=== PATIENT | female | born 2000 | race Caucasian/White ===

== ENCOUNTER 2019-08-01 06:00 | Outpatient (RCR) | payer MEDICARE, OTHER, SELFPAY | END 2019-08-31 00:01 | LOC: SPT 06:00 | PROVIDERS: Family Provider Family Medicine; Visit Provider Psychiatry & Neurology Neurology with Special Qualifications in Child Neurology | DX: G80.9 Cerebral palsy, unspecified (principal); M54.5 Low back pain | CPT/HCPCS: 97530 ==

== ENCOUNTER 2019-09-01 06:00 | Outpatient (RCR) | payer MEDICARE, MEDICAID, OTHER, SELFPAY | END 2019-09-21 23:00 | disposition home or self-care (01) | LOC: SPT 06:00 | PROVIDERS: Family Provider Family Medicine; PCP Family Medicine; Referring Provider Psychiatry & Neurology Neurology with Special Qualifications in Child Neurology; Visit Provider Psychiatry & Neurology Neurology with Special Qualifications in Child Neurology | DX: G80.9 Cerebral palsy, unspecified (principal); M54.5 Low back pain | CPT/HCPCS: 97113; 97530 ==

== ENCOUNTER 2019-10-02 06:00 | Outpatient (RCR) | payer MEDICARE, MEDICAID, OTHER, SELFPAY | END 2019-10-30 23:59 | disposition home or self-care (01) | LOC: SPT 06:00 | PROVIDERS: Family Provider Family Medicine; PCP Family Medicine; Referring Provider Psychiatry & Neurology Neurology with Special Qualifications in Child Neurology; Visit Provider Psychiatry & Neurology Neurology with Special Qualifications in Child Neurology | DX: G80.0 Spastic quadriplegic cerebral palsy (principal); M54.5 Low back pain | CPT/HCPCS: 97113; 97530 ==

== ENCOUNTER 2020-04-02 19:43 | Emergency (ER) | payer MEDICARE, MEDICAID, OTHER, SELFPAY ==
[2020-04-02] VITALS (7 sets, daily range): BP systolic 124–162; BP diastolic 90–102; PULSE 111–123; RESP 17–20; TEMP 37.1; O2SAT 96–99; BMI 26.5
--- NOTE | 2020-04-02 20:27 | XR_ITS ---
WS: [id number] PORTABLE CHEST HISTORY: cough, chest pain COMPARISON: None available. Lung volumes are decreased due to marked distention of the visualized GI tract in the upper abdomen. No pneumonia. No pleural effusion or pneumothorax. Cardiac size: Normal. Mediastinum/Aorta: Normal mediastinum. Extensive bilateral Ta rods throughout the thoracic spine extending into the upper lumbar spi ne. XR/XR chest 1V portable [id number] IMPRESSION: Decreased lung volumes due to marked fecal and air distention in the colon. No pneumonia.
--- NOTE | 2020-04-02 20:28 | ECG_ITS ---
[facility] Test Date: 2020-04-02 Pat Name: Maria Esther Rust Department: Room: Gender: Female Independent Distributor: : 2000 Requested By: Ylois Paul Order Number: [id number] Milly MD: Bert Gaines M.D. Measurements Intervals [place] Rate: 114 P: 55 CT: 108 QRS: 32 QRSD: 89 T: 8 QT: 313 QTc: 432 Interpretive Statements SINUS TACHYCARDIA WITH SHORT CT INTERVAL POSSIBLE LEFT ATRIAL ENLARGEMENT [-0.1mV P WAVE IN V1/V2] ABNORMAL RHYTHM ECG No previous ECG available for comparison Electronically Signed On 04-03-2020 9:35:53 CDT by Bert Gaines M.D. [id number]
--- NOTE | 2020-04-02 20:46 | ED_ITS ---
Documented by User: Yolis Sung MD 04/05/20 15:01 HPI - SOB/Dyspnea General: Chief Complaint: Shortness of Breath/Dyspnea Stated Complaint: sob Time Seen by Provider: 04/02/20 19:56 History of Present Illness: HPI Narrative: This patient is a 20-year-old female with a history of cerebral palsy. She is here with a caregiver. Her complaint today is chest pain and shortness of breath. For about 3 or 4 days she has been having intermittent chest pains. She feels short of breath. She feels worse when she lays down at night to try to sleep. She says at times she wakes up gasping for breath. Sometimes she feels better when she sits up but also notes that after she has been sitting up for a while it is hard to breathe there too. She does have a history of panic attacks and says that she does not feel like this is her normal panic attack. She is concerned that she might have pneumonia. She went to the [facility] urgent care on and had a COVID test. She also was started on an antibiotic that starts with an L, possibly Levaquin for possible lung infection. She did not have a chest x-ray or labs done at that time. She has not had any fever. She has a dry cough. She has had a few loose stools but not quite diarrhea. The chest pain seems to come and go without any pattern. MD elicited complaint: shortness of breath, cough, pain with inspiration, chest pain and anxiety Pertinent past history: asthma (As a child) and pneumonia Timing: intermittent Severity: moderate Exacerbating factors: lying flat and inspiration Relieving factors: upright position Associated symptoms: Reports chest pain; Deny abdominal pain, chest congestion, extremity pain, fever(s), nausea or vomiting Review of Systems General: Reports: 10 or more systems reviewed and unremarkable except in HPI and below Const: Denies: fever(s), chills, fatigue or malaise Eyes: Denies: change in vision ENMT: Denies: odynophagia Card: Reports: chest pain; Denies: swelling of feet/ankles Resp: Reports: dyspnea, non-productive cough and pain on inspiration; Denies: chest congestion GI: Denies: abdominal pain, nausea or vomiting : Denies: flank pain or difficulty voiding Musc: Denies: extremity pain Skin/Breast: Denies: rash Neuro: Denies: headache(s), numbness in extremities or weakness in extremities Alan/Lymph: Denies: easy bruising or easy bleeding [facility] Female Reproductive History: Date of last menstrual period: 07/02/19 Physical Exam Const: COMMON NORMALS: no acute distress, patient oriented x3, no limitations and alert GENERAL APPEARANCE: cooperative and comfortable HENMT: HEAD & SCALP: normal to inspection FACE & SINUS: normal facial exam Eye: GENERAL EYE: appearance normal, both eyes and all related structures Neck/C-Spine: COMMON NORMALS: supple, no meningeal signs and no JVD Chest: COMMONS NORMALS: normal inspection of the chest Resp: COMMON NORMALS: normal respiratory effort, No use of accessory muscles and clear to auscultation bilaterally AUSCULTATION: clear to auscultation bilaterally Cardio: COMMON NORMALS: no JVD, regular rhythm and No murmurs present (Cardio) RATE: tachycardic RHYTHM: regular rhythm GI: COMMON NORMALS: non-tender INSPECTION: Yes normal to inspection and Yes abdominal distension AUSCULTATION: Yes normoactive bowel sounds and Yes Hypoactive bowel sounds present PERCUSSION: tympanic to percussion Back/Pelvis: COMMON NORMALS: thoracic and lumbar spine normal to inspection Extremity: NARRATIVE EXTREMITY EXAM: Muscle atrophy and contractures consistent with history of CP. She has good use of both upper extremities. Lower extremities are strapped into the wheelchair. GENERAL: Yes normal exam except as noted Neuro: COMMON NORMALS: patient oriented x3, moves all extremities, no focal motor deficits and no sensory deficits noted SENSORIUM/ORIENTATION: Yes alert MENINGEAL SIGNS: Yes no meningeal signs Psych: COMMON NORMALS: mental status grossly normal, cooperative and normal affect Skin: COMMON NORMALS: no rashes or lesions noted and turgor normal GENERAL SKIN EXAM: no rashes or lesions noted and turgor normal Course ED course: Patient requested some pain medicine and I gave her morphine and Zofran. She continued to complain of some nausea but pain was better. She is persistently tachycardic and she said her heart rate normally runs a little bit high. She is not sure what a normal heart rate is for her. Her chest x-ray was clear but did show markedly dilated bowel. Labs are unremarkable including a negative d-dimer. EKG just shows sinus tach with no ischemic changes. CT of the abdomen and pelvis is ordered to evaluate for blockage or ileus. This could be the cause of her chest pain. Vital Signs: Vital signs: Vital Signs Temperature 98.7 F 04/02/20 19:53 Pulse Rate 80 04/03/20 01:00 Respiratory Rate 16 04/03/20 01:00 Blood Pressure 129/81 04/03/20 01:00 Pulse Oximetry 97 04/03/20 01:00 MDM - SOB/Dyspnea MDM Narrative: Medical decision making narrative: Chest pain and shortness of breath. Patient had a COVID test done at urgent care on and is awaiting results. She has not had a fever or any known exposure. I think she is probably pretty low risk. She does have shortness of breath and chest pain. Somewhat pleuritic in nature. She also has had nausea and some abdominal bloating. She has had some loose stools which is unusual for her. Need to rule out pericarditis, myocarditis, PE, pneumonia. I would also include GI causes including gastritis, hiatal hernia. Lab Data: Labs: Lab Results 04/02/20 04/02/20 04/02/20 Range/Units 20:47 20:47 20:47 WBC 7.7 (4.0-10.0) 10^3/ uL RBC 4.69 (4.1-5.3) 10^6/u L Hgb 14.1 (11.5-15.3) g/dL Hct 43.2 (37.0-47.0) % MCV 92.1 (81-99) fL MCH 30.1 (28.0-34.0) pg MCHC 32.6 (30.0-36.0) g/dL RDW 12.3 (12.1-15.1) % Plt Count 204 (130-400) 10^3/c mm MPV 10.2 (7.4-10.4) fL Neut % (Auto) 57.2 % Lymph % (Auto) 35.0 % [place] % (Auto) 6.1 % Eos % (Auto) 1.2 % Baso % (Auto) 0.4 % Neut # (Auto) 4.38 (1.8-7.7) 10^3/u L Lymph # (Auto) 2.7 (0.8-4.8) 10^3/u L [place] # (Auto) 0.5 (0.2-0.9) 10^3/u L Eos # (Auto) 0.1 (0.0-0.8) 10^3/u L Baso # (Auto) 0.0 (0.0-0.1) 10^3/u L Nucleated RBC % (a uto) 0 % Nucleated RBCs # 0.0 /100WBC D-Dimer <= 0.27 (0-0.59) ug/mIFE U Sodium 138 (136-145) mmol/L Potassium 4.2 (3.5-5.1) mmol/L Chloride 104 (98-107) mmol/L Carbon Dioxide 23 (22-29) mmol/L Anion Gap 15.2 (5-19) BUN 7 (6-20) mg/dL Creatinine 0.4 L (0.5-0.9) mg/dL GFR Calculation 201.5 H (90-130) mL/min Glucose 92 (65-115) mg/dL Calculated Osmolal ity 281 L (285-295) mOsm/k g Lactic Acid (0.5-2.2) mmol/L Calcium 9.2 (8.5-10.5) mg/dL Total Bilirubin 0.2 (0.15-1.2) mg/dL AST 16 (0-32) U/L ALT 13 (0-33) U/L Alkaline Phosphata se 93 (35-105) IU/L Troponin T Baselin e (0-10) ng/L Troponin T 120 Min [place] (0-10) ng/L Delta Troponin T (0-10) ABS# NT-Pro-B Natriuret Pep 17 (0-125) pg/mL Total Protein 7.8 (6.6-8.7) g/dL Albumin 4.1 (3.5-5.2) g/dL Globulin 3.7 (1.3-4.6) g/dL Lipase 42 (13-60) U/L HCG, Qual (Negative) Urine Color (Yellow) Urine Appearance (CLEAR) Urine pH (5-7) Ur Specific Gravit y (1.005-1.030) Urine Protein (Negative) Urine Glucose (UA) (Normal) Urine Ketones (Negative) Urine Blood (Negative) Urine Nitrate (Negative) Urine Bilirubin (NEGATIVE) Urine Urobilinogen (Negative) mg/dL Ur Leukocyte Radha ase (Negative) SARS-CoV-2 Ag (Rap id) (Negative) 04/02/20 04/02/20 04/02/20 Range/Units 20:47 20:47 20:47 WBC (4.0-10.0) 10^3/ uL RBC (4.1-5.3) 10^6/u L Hgb (11.5-15.3) g/dL Hct (37.0-47.0) % MCV (81-99) fL MCH (28.0-34.0) pg MCHC (30.0-36.0) g/dL RDW (12.1-15.1) % Plt Count (130-400) 10^3/c mm MPV (7.4-10.4) fL Neut % (Auto) % Lymph % (Auto) % [place] % (Auto) % Eos % (Auto) % Baso % (Auto) % Neut # (Auto) (1.8-7.7) 10^3/u L Lymph # (Auto) (0.8-4.8) 10^3/u L [place] # (Auto) (0.2-0.9) 10^3/u L Eos # (Auto) (0.0-0.8) 10^3/u L Baso # (Auto) (0.0-0.1) 10^3/u L Nucleated RBC % (a uto) % Nucleated RBCs # /100WBC D-Dimer (0-0.59) ug/mIFE U Sodium (136-145) mmol/L Potassium (3.5-5.1) mmol/L Chloride (98-107) mmol/L Carbon Dioxide (22-29) mmol/L Anion Gap (5-19) BUN (6-20) mg/dL Creatinine (0.5-0.9) mg/dL GFR Calculation (90-130) mL/min Glucose (65-115) mg/dL Calculated Osmolal ity (285-295) mOsm/k g Lactic Acid < 0.2 L (0.5-2.2) mmol/L Calcium (8.5-10.5) mg/dL Total Bilirubin (0.15-1.2) mg/dL AST (0-32) U/L ALT (0-33) U/L Alkaline Phosphata se (35-105) IU/L Troponin T Baselin e 6 (0-10) ng/L Troponin T 120 Min [place] (0-10) ng/L Delta Troponin T (0-10) ABS# NT-Pro-B Natriuret Pep (0-125) pg/mL Total Protein (6.6-8.7) g/dL Albumin (3.5-5.2) g/dL Globulin (1.3-4.6) g/dL Lipase (13-60) U/L HCG, Qual Negative (Negative) Urine Color (Yellow) Urine Appearance (CLEAR) Urine pH (5-7) Ur Specific Gravit y (1.005-1.030) Urine Protein (Negative) Urine Glucose (UA) (Normal) Urine Ketones (Negative) Urine Blood (Negative) Urine Nitrate (Negative) Urine Bilirubin (NEGATIVE) Urine Urobilinogen (Negative) mg/dL Ur Leukocyte Radha ase (Negative) SARS-CoV-2 Ag (Rap id) (Negative) 04/02/20 04/02/20 04/03/20 Range/Units 20:52 22:19 00:12 WBC (4.0-10.0) 10^3/ uL RBC (4.1-5.3) 10^6/u L Hgb (11.5-15.3) g/dL Hct (37.0-47.0) % MCV (81-99) fL MCH (28.0-34.0) pg MCHC (30.0-36.0) g/dL RDW (12.1-15.1) % Plt Count (130-400) 10^3/c mm MPV (7.4-10.4) fL Neut % (Auto) % Lymph % (Auto) % [place] % (Auto) % Eos % (Auto) % Baso % (Auto) % Neut # (Auto) (1.8-7.7) 10^3/u L Lymph # (Auto) (0.8-4.8) 10^3/u L [place] # (Auto) (0.2-0.9) 10^3/u L Eos # (Auto) (0.0-0.8) 10^3/u L Baso # (Auto) (0.0-0.1) 10^3/u L Nucleated RBC % (a uto) % Nucleated RBCs # /100WBC D-Dimer (0-0.59) ug/mIFE U Sodium (136-145) mmol/L Potassium (3.5-5.1) mmol/L Chloride (98-107) mmol/L Carbon Dioxide (22-29) mmol/L Anion Gap (5-19) BUN (6-20) mg/dL Creatinine (0.5-0.9) mg/dL GFR Calculation (90-130) mL/min Glucose (65-115) mg/dL Calculated Osmolal ity (285-295) mOsm/k g Lactic Acid (0.5-2.2) mmol/L Calcium (8.5-10.5) mg/dL Total Bilirubin (0.15-1.2) mg/dL AST (0-32) U/L ALT (0-33) U/L Alkaline Phosphata se (35-105) IU/L Troponin T Baselin e (0-10) ng/L Troponin T 120 Min [place] 6.50 (0-10) ng/L Delta Troponin T 0.50 (0-10) ABS# NT-Pro-B Natriuret Pep (0-125) pg/mL Total Protein (6.6-8.7) g/dL Albumin (3.5-5.2) g/dL Globulin (1.3-4.6) g/dL Lipase (13-60) U/L HCG, Qual (Negative) Urine Color Yellow (Yellow) Urine Appearance Clear (CLEAR) Urine pH 7 (5-7) Ur Specific Gravit y 1.005 (1.005-1.030) Urine Protein Neg (Negative) Urine Glucose (UA) Norm (Normal) Urine Ketones Negative (Negative) Urine Blood Neg (Negative) Urine Nitrate Negative (Negative) Urine Bilirubin Neg (NEGATIVE) Urine Urobilinogen Norm (Negative) mg/dL Ur Leukocyte Radha ase Negative (Negative) SARS-CoV-2 Ag (Rap id) Negative (Negative) Discharge Plan Discharge Patient Disposition: Home Clinical Impression: Acute dyspnea Abdominal pain Qualifiers: Abdominal location: upper abdomen, unspecified Qualified Code(s): R10.10 - Upper abdominal pain, unspecified Condition: Stable Discharge Orders: Discharge Order (Routine); Ordered 04/03/20 Ordered By: Saima Osuna Referrals: Leatha Mena MD [Primary Care Provider] - 1-3 days Discharge Diet: Advance as tolerated Discharge Activity: Increase activity as tolerated Patient Instructions: Abdominal Pain (ED), Dyspnea (ED) Activity Restrictions/Additional Instructions: Please return to the ER immediately for any of the signs or symptoms listed on your discharge instruction sheets, worsening/changing of your symptoms, you are not getting better as quickly as expected, or for ANY other cause or concerns. Return to the ER for return of your shortness of breath, return of your abdominal pain, new onset of fever, vomiting, or for any other cause for concern. Be certain to follow-up with Dr. Mena this week as soon as possible for recheck. Discharge Date/Time: 04/03/20 01:08 Sign Out Sign Out Data: Patient Sign Out occurred on 04/02/20 at 22:20. Patient's care was discussed, and care was transferred from to Saima Osuna. Coding Level of Care Code ED [employer] Technician for Chg Fwd Exam Comprehensive Documented by User: Saima Osuna 04/03/20 00:55 HPI - SOB/Dyspnea General: Chief Complaint: Shortness of Breath/Dyspnea Stated Complaint: sob Time Seen by Provider: 04/02/20 19:56 Course Vital Signs: Vital signs: Vital Signs Temperature 98.7 F 04/02/20 19:53 Pulse Rate 80 04/03/20 01:00 Respiratory Rate 16 04/03/20 01:00 Blood Pressure 129/81 04/03/20 01:00 Pulse Oximetry 97 04/03/20 01:00 MDM - SOB/Dyspnea MDM Narrative: Medical decision making narrative: 2299 -Case turned over to me at change of shift from Dr. Sung. CT scan of abdomen pelvis pending. Per my history the patient comes in with a shortness of breath and intermittent sharp chest pains for the past 2 days. Patient does also complain of some upper abdominal pain. She is had nausea but not vomiting. She denies any diarrhea or constipation. Patient states that overall she is feeling better since arrival but not back to 100%. Will await test results and reevaluate the patient at that time. 0052 -the patient is now insisting upon going as she is tired and wants to go home to rest. CT scan showed gastroenteritis versus gastroparesis. Clinically the patient is having bowel movements and has not reported any vomiting. It is possible she could have some gastroparesis so I did give her a dose of Reglan here to see if that would help. The patient seemed to be anxious about waiting on her co-test any longer so I did do a COVID test here but now she wants to leave before she even has that result. She states all of her symptoms have not completely resolved. I will go ahead and discharge her home but she understands that we will have to wait for the COVID test since that should be back in less than 1 hour. The patient was encouraged to return should her symptoms return or she develop any new signs or symptoms. By exam and history I believe the patient to be low risk but she does agree to return should her symptoms change or worsen. She agrees to follow-up with her doctor for recheck. Vital signs returned to normal. Lab Data: Attestation: I reviewed the patient's lab results. Labs: Lab Results 04/02/20 04/02/20 04/02/20 Range/Units 20:47 20:47 20:47 WBC 7.7 (4.0-10.0) 10^3/ uL RBC 4.69 (4.1-5.3) 10^6/u L Hgb 14.1 (11.5-15.3) g/dL Hct 43.2 (37.0-47.0) % MCV 92.1 (81-99) fL MCH 30.1 (28.0-34.0) pg MCHC 32.6 (30.0-36.0) g/dL RDW 12.3 (12.1-15.1) % Plt Count 204 (130-400) 10^3/c mm MPV 10.2 (7.4-10.4) fL Neut % (Auto) 57.2 % Lymph % (Auto) 35.0 % [place] % (Auto) 6.1 % Eos % (Auto) 1.2 % Baso % (Auto) 0.4 % Neut # (Auto) 4.38 (1.8-7.7) 10^3/u L Lymph # (Auto) 2.7 (0.8-4.8) 10^3/u L [place] # (Auto) 0.5 (0.2-0.9) 10^3/u L Eos # (Auto) 0.1 (0.0-0.8) 10^3/u L Baso # (Auto) 0.0 (0.0-0.1) 10^3/u L Nucleated RBC % (a uto) 0 % Nucleated RBCs # 0.0 /100WBC D-Dimer <= 0.27 (0-0.59) ug/mIFE U Sodium 138 (136-145) mmol/L Potassium 4.2 (3.5-5.1) mmol/L Chloride 104 (98-107) mmol/L Carbon Dioxide 23 (22-29) mmol/L Anion Gap 15.2 (5-19) BUN 7 (6-20) mg/dL Creatinine 0.4 L (0.5-0.9) mg/dL GFR Calculation 201.5 H (90-130) mL/min Glucose 92 (65-115) mg/dL Calculated Osmolal ity 281 L (285-295) mOsm/k g Lactic Acid (0.5-2.2) mmol/L Calcium 9.2 (8.5-10.5) mg/dL Total Bilirubin 0.2 (0.15-1.2) mg/dL AST 16 (0-32) U/L ALT 13 (0-33) U/L Alkaline Phosphata se 93 (35-105) IU/L Troponin T Baselin e (0-10) ng/L Troponin T 120 Min [place] (0-10) ng/L Delta Troponin T (0-10) ABS# NT-Pro-B Natriuret Pep 17 (0-125) pg/mL Total Protein 7.8 (6.6-8.7) g/dL Albumin 4.1 (3.5-5.2) g/dL Globulin 3.7 (1.3-4.6) g/dL Lipase 42 (13-60) U/L HCG, Qual (Negative) Urine Color (Yellow) Urine Appearance (CLEAR) Urine pH (5-7) Ur Specific Gravit y (1.005-1.030) Urine Protein (Negative) Urine Glucose (UA) (Normal) Urine Ketones (Negative) Urine Blood (Negative) Urine Nitrate (Negative) Urine Bilirubin (NEGATIVE) Urine Urobilinogen (Negative) mg/dL Ur Leukocyte Radha ase (Negative) SARS-CoV-2 Ag (Rap id) (Negative) 04/02/20 04/02/20 04/02/20 Range/Units 20:47 20:47 20:47 WBC (4.0-10.0) 10^3/ uL RBC (4.1-5.3) 10^6/u L Hgb (11.5-15.3) g/dL Hct (37.0-47.0) % MCV (81-99) fL MCH (28.0-34.0) pg MCHC (30.0-36.0) g/dL RDW (12.1-15.1) % Plt Count (130-400) 10^3/c mm MPV (7.4-10.4) fL Neut % (Auto) % Lymph % (Auto) % [place] % (Auto) % Eos % (Auto) % Baso % (Auto) % Neut # (Auto) (1.8-7.7) 10^3/u L Lymph # (Auto) (0.8-4.8) 10^3/u L [place] # (Auto) (0.2-0.9) 10^3/u L Eos # (Auto) (0.0-0.8) 10^3/u L Baso # (Auto) (0.0-0.1) 10^3/u L Nucleated RBC % (a uto) % Nucleated RBCs # /100WBC D-Dimer (0-0.59) ug/mIFE U Sodium (136-145) mmol/L Potassium (3.5-5.1) mmol/L Chloride (98-107) mmol/L Carbon Dioxide (22-29) mmol/L Anion Gap (5-19) BUN (6-20) mg/dL Creatinine (0.5-0.9) mg/dL GFR Calculation (90-130) mL/min Glucose (65-115) mg/dL Calculated Osmolal ity (285-295) mOsm/k g Lactic Acid < 0.2 L (0.5-2.2) mmol/L Calcium (8.5-10.5) mg/dL Total Bilirubin (0.15-1.2) mg/dL AST (0-32) U/L ALT (0-33) U/L Alkaline Phosphata se (35-105) IU/L Troponin T Baselin e 6 (0-10) ng/L Troponin T 120 Min [place] (0-10) ng/L Delta Troponin T (0-10) ABS# NT-Pro-B Natriuret Pep (0-125) pg/mL Total Protein (6.6-8.7) g/dL Albumin (3.5-5.2) g/dL Globulin (1.3-4.6) g/dL Lipase (13-60) U/L HCG, Qual Negative (Negative) Urine Color (Yellow) Urine Appearance (CLEAR) Urine pH (5-7) Ur Specific Gravit y (1.005-1.030) Urine Protein (Negative) Urine Glucose (UA) (Normal) Urine Ketones (Negative) Urine Blood (Negative) Urine Nitrate (Negative) Urine Bilirubin (NEGATIVE) Urine Urobilinogen (Negative) mg/dL Ur Leukocyte Radha ase (Negative) SARS-CoV-2 Ag (Rap id) (Negative) 04/02/20 04/02/20 04/03/20 Range/Units 20:52 22:19 00:12 WBC (4.0-10.0) 10^3/ uL RBC (4.1-5.3) 10^6/u L Hgb (11.5-15.3) g/dL Hct (37.0-47.0) % MCV (81-99) fL MCH (28.0-34.0) pg MCHC (30.0-36.0) g/dL RDW (12.1-15.1) % Plt Count (130-400) 10^3/c mm MPV (7.4-10.4) fL Neut % (Auto) % Lymph % (Auto) % [place] % (Auto) % Eos % (Auto) % Baso % (Auto) % Neut # (Auto) (1.8-7.7) 10^3/u L Lymph # (Auto) (0.8-4.8) 10^3/u L [place] # (Auto) (0.2-0.9) 10^3/u L Eos # (Auto) (0.0-0.8) 10^3/u L Baso # (Auto) (0.0-0.1) 10^3/u L Nucleated RBC % (a uto) % Nucleated RBCs # /100WBC D-Dimer (0-0.59) ug/mIFE U Sodium (136-145) mmol/L Potassium (3.5-5.1) mmol/L Chloride (98-107) mmol/L Carbon Dioxide (22-29) mmol/L Anion Gap (5-19) BUN (6-20) mg/dL Creatinine (0.5-0.9) mg/dL GFR Calculation (90-130) mL/min Glucose (65-115) mg/dL Calculated Osmolal ity (285-295) mOsm/k g Lactic Acid (0.5-2.2) mmol/L Calcium (8.5-10.5) mg/dL Total Bilirubin (0.15-1.2) mg/dL AST (0-32) U/L ALT (0-33) U/L Alkaline Phosphata se (35-105) IU/L Troponin T Baselin e (0-10) ng/L Troponin T 120 Min [place] 6.50 (0-10) ng/L Delta Troponin T 0.50 (0-10) ABS# NT-Pro-B Natriuret Pep (0-125) pg/mL Total Protein (6.6-8.7) g/dL Albumin (3.5-5.2) g/dL Globulin (1.3-4.6) g/dL Lipase (13-60) U/L HCG, Qual (Negative) Urine Color Yellow (Yellow) Urine Appearance Clear (CLEAR) Urine pH 7 (5-7) Ur Specific Gravit y 1.005 (1.005-1.030) Urine Protein Neg (Negative) Urine Glucose (UA) Norm (Normal) Urine Ketones Negative (Negative) Urine Blood Neg (Negative) Urine Nitrate Negative (Negative) Urine Bilirubin Neg (NEGATIVE) Urine Urobilinogen Norm (Negative) mg/dL Ur Leukocyte Radha ase Negative (Negative) SARS-CoV-2 Ag (Rap id) Negative (Negative) Imaging Data^: CT Abd/Pel: Radiologist's impression: [address] [place] [address] CT Scan Report Signed Patient: Maria Esther Rust Unit #: [id number] : 2000 Age/Sex: 20 / F ADM Date: 04/02/20 Loc: ER Room/Bed: Attending Dr: Ordering Provider/Ordering MD: Yolis Sung MD Date of Service: 04/02/20 Procedure(s): CT abdomen pelvis w con* [id number] Accession Number(s): [id number] Report Number: [id number] PROCEDURE INFORMATION: Exam: CT Abdomen And Pelvis With Contrast Exam date and time: 04/02/2020 10:21 PM Age: 20 years old Clinical indication: Abdominal pain; Prior surgery; Surgery date: 6+ months; Surgery type: Back; Patient HX: HX of cp C/O epigastric pain TECHNIQUE: Imaging protocol: Computed tomography of the abdomen and pelvis with intravenous contrast. Radiation optimization: All CT scans at this facility use at least one of these dose optimization techniques: automated exposure control; mA and/or kV adjustment per patient size (includes targeted exams where dose is matched to clinical indication); or iterative reconstruction. Contrast material: OMNI 300; Contrast volume: 95 ml; Contrast route: INTRAVENOUS (IV); COMPARISON: No relevant prior studies available. RADIATION DOSE METRICS: Total DLP (mGy-cm): 993.67 FINDINGS: The lung bases are clear. There is extensive instrumentation of the spine with pedicle screws and stabilization rods. This causes significant artifact. There is no liver mass. There is no intrahepatic biliary dilatation. No gallstones are seen within the gallbladder. The pancreas is unremarkable. The spleen is unremarkable. There is no adrenal mass. There is no hydronephrosis. There are no renal calculi. There is no perinephric stranding. There is no renal mass. The aorta is normal in caliber. The IVC is normal in caliber. There is no retroperitoneal adenopathy. There is no mesenteric adenopathy. The stomach is filled with fluid. There is no gastric wall thickening. The small bowel loops in the upper abdomen are nondistended with no bowel wall thickening. Feces is seen throughout the colon. There is no thickening of the wall of the ascending, transverse or descending colons. Within the pelvis: The appendix is not visualized to advantage. However, there is no CT evidence for acute appendicitis. The bladder is unremarkable. The uterus is unremarkable. There are no adnexal masses. There is no free fluid within the pelvis. There is no inguinal adenopathy. There is no pelvic adenopathy. Feces is seen within the rectosigmoid colon. CT/CT abdomen pelvis w con* [id number] IMPRESSION: 1. Extensive artifact from spinal instrumentation limits examination. 2. Gastric distention with fluid which is nonspecific. This could be due to recent meal. It could be secondary to a gastroenteritis or gastro paresis. No evidence for bowel obstruction. 3. Moderate fecal burden suggesting constipation. Radiation Dose CTDIVOL = (mGy): DLP = 993.67 (mGy-cm) Dictated By: Noam Bush MD Signed By: Noam Bush MD Signed Date/Time: 04/02/202305 DD/ 04 EKG Data^: EKG 2: Attestation: I personally reviewed and interpreted this EKG as follows: EKG Interpretation Date: 04/03/20 EKG interpretation time: 23:34 Interpretation: Normal sinus rhythm at 113 beats a minute, no acute ST-T wave changes. Discharge Plan Discharge Patient Disposition: Home Clinical Impression: Acute dyspnea Abdominal pain Qualifiers: Abdominal location: upper abdomen, unspecified Qualified Code(s): R10.10 - Upper abdominal pain, unspecified Condition: Stable Discharge Orders: Discharge Order (Routine); Ordered 04/03/20 Ordered By: Saima Osuna Referrals: Leatha Mena MD [Primary Care Provider] - 1-3 days Discharge Diet: Advance as tolerated Discharge Activity: Increase activity as tolerated Patient Instructions: Abdominal Pain (ED), Dyspnea (ED) Activity Restrictions/Additional Instructions: Please return to the ER immediately for any of the signs or symptoms listed on your discharge instruction sheets, worsening/changing of your symptoms, you are not getting better as quickly as expected, or for ANY other cause or concerns. Return to the ER for return of your shortness of breath, return of your abdo jim pain, new onset of fever, vomiting, or for any other cause for concern. Be certain to follow-up with Dr. Mena this week as soon as possible for recheck. Discharge Date/Time: 04/03/20 01:08 Sign Out Sign Out Data: Patient Sign Out occurred on 04/02/20 at 22:20. Patient's care was discussed, and care was transferred from to Saima Osuna. Coding Level of Care Code ED [employer] for [employer] Fwd Exam Comprehensive
[2020-04-02 20:53] LABS: Basophils % 0.4 %; Eosinophils # 0.1 10^3/uL (0.0-0.8); Eosinophils % 1.2 %; Hematocrit 43.2 % (37.0-47.0); Hemoglobin 14.1 g/dL (11.5-15.3); Lymphocytes # 2.7 10^3/uL (0.8-4.8); Mean Corpuscular HGB Conc 32.6 g/dL (30.0-36.0); Mean Corpuscular Hemoglobin 30.1 pg (28.0-34.0); Mean Corpuscular Volume 92.1 fL (81-99); Mean Platelet Volume 10.2 fL (7.4-10.4); Monocytes # 0.5 10^3/uL (0.2-0.9); Monocytes % 6.1 %; Neutrophils # 4.38 10^3/uL (1.8-7.7); Neutrophils % 57.2 %; Nucleated Red Blood Cells % 0 %; Platelet Count 204 10^3/cmm (130-400); Red Blood Count 4.69 10^6/uL (4.1-5.3); Red Cell Distribution Width 12.3 % (12.1-15.1); White Blood Count 7.7 10^3/uL (4.0-10.0)
[2020-04-02 21:09] LABS: D Dimer <= 0.27 ug/mIFEU (0-0.59)
[2020-04-02 21:17] LABS: HCG, Serum Qual Negative (Negative)
[2020-04-02 21:19] LABS: Add Urine Microscopic? NO
[2020-04-02] MEDS: sodium chloride 0.9% 1,000 ML 999 ML IV ×2 (21:19→23:45)
[2020-04-02] MEDS: ondansetron 2 mg/ML SDV 2 mL 4 MG IVP (21:23)
[2020-04-02] MEDS: morphine 4 mg/mL SDV 1 mL IVP ×3 (21:24→23:47)
[2020-04-02 21:26] LABS: Bilirubin Urine Neg (NEGATIVE); Blood Urine Neg (Negative); Glucose Urine UA Norm (Normal); Ketones Urine Negative (Negative); Leukocyte Esterase Urine Negative (Negative); Nitrate Urine Negative (Negative); Protein Urine Neg (Negative); Specific Gravity, Urine 1.005 (1.005-1.030); Urine Appearance Clear (CLEAR); Urine Color Yellow (Yellow); Urobilinogen Urine Norm (Negative); pH Urine 7 (5-7)
[2020-04-02 21:41] LABS: Alanine Aminotransferase 13 U/L (0-33); Albumin Level 4.1 g/dL (3.5-5.2); Alkaline Phosphatase 93 IU/L (35-105); Anion Gap 15.2 (5-19); Aspartate Amino Transferase 16 U/L (0-32); Blood Urea Nitrogen 7 mg/dL (6-20); Calcium 9.2 mg/dL (8.5-10.5); Carbon Dioxide 23 mmol/L (22-29); Chloride 104 mmol/L (98-107); Globulin 3.7 g/dL (1.3-4.6); Glomerular Filtration Rate 201.5 mL/min (90-130); Glucose 92 mg/dL (65-115); Lipase 42 U/L (13-60); NT Pro B Type Natriuretic Pept 17 pg/mL (0-125); Osmolality Calculated 281 mOsm/kg (285-295); Potassium 4.2 mmol/L (3.5-5.1); Sodium 138 mmol/L (136-145); Total Bilirubin 0.2 mg/dL (0.15-1.2); Total Protein 7.8 g/dL (6.6-8.7)
--- NOTE | 2020-04-02 21:48 | CTR_ITS ---
PROCEDURE INFORMATION: Exam: CT Abdomen And Pelvis With Contrast Exam date and time: 04/02/2020 10:21 PM Age: 20 years old Clinical indication: Abdominal pain; Prior surgery; Surgery date: 6+ months; Surgery type: Back; Patient HX: HX of cp C/O epigastric pain TECHNIQUE: Imaging protocol: Computed tomography of the abdomen and pelvis with intravenous contrast. Radiation optimization: All CT scans at this facility use at least one of these dose optimization techniques: automated exposure control; mA and/or kV adjustment per patient size (includes targeted exams where dose is matched to clinical indication); or iterative reconstruction. Contrast material: OMNI 300; Contrast volume: 95 ml; Contrast route: INTRAVENOUS (IV); COMPARISON: No relevant prior studies available. RADIATION DOSE METRICS: Total DLP (mGy-cm): 993.67 FINDINGS: The lung bases are clear. There is extensive instrumentation of the spine with pedicle screws and stabilization rods. This causes significant artifact. There is no liver mass. There is no intrahepatic biliary dilatation. No gallstones are seen within the gallbladder. The pancreas is unremarkable. The spleen is unremarkable. There is no adrenal mass. There is no hydronephrosis. There are no renal calculi. There is no perinephric stranding. There is no renal mass. The aorta is normal in caliber. The IVC is normal in caliber. There is no retroperitoneal adenopathy. There is no mesenteric adenopathy. The stomach is filled with fluid. There is no gastric wall thickening. The small bowel loops in the upper abdomen are nondistended with no bowel wall thickening. Feces is seen throughout the colon. There is no thickening of the wall of the ascending, transverse or descending colons. Within the pelvis: The appendix is not visualized to advantage. However, there is no CT evidence for acute appendicitis. The bladder is unremarkable. The uterus is unremarkable. There are no adnexal masses. There is no free fluid within the pelvis. There is no inguinal adenopathy. There is no pelvic adenopathy. Feces is seen within the rectosigmoid colon. CT/CT abdomen pelvis w con* [id number] IMPRESSION: 1. Extensive artifact from spinal instrumentation limits examination. 2. Gastric distention with fluid which is nonspecific. This could be due to recent meal. It could be secondary to a gastroenteritis or gastro paresis. No evidence for bowel obstruction. 3. Moderate fecal burden suggesting constipation. Radiation Dose CTDIVOL = (mGy): DLP = 993.67 (mGy-cm)
[2020-04-02 21:57] LABS: Troponin(5th) Baseline 6 ng/L (0-10)
--- NOTE | 2020-04-02 22:28 | ECG_ITS ---
[facility] Test Date: 2020-04-02 Pat Name: Maria Esther Rust Department: Room: Gender: Female Machine Bender: : 2000 Requested By: Yolis Paul Order Number: [id number] Milly MD: Bert Gaines M.D. Measurements Intervals Lawrence Rate: 113 P: -38 RI: 138 QRS: -27 QRSD: 80 T: 34 QT: 328 QTc: 451 Interpretive Statements SINUS TACHYCARDIA POSSIBLE LEFT ATRIAL ENLARGEMENT [-0.1mV P WAVE IN V1/V2] BORDERLINE LEFT AXIS DEVIATION [QRS AXIS < -20] POSSIBLE RIGHT VENTRICULAR CONDUCTION DELAY [RSR (QR) IN V1/V2] NONSPECIFIC T-WAVE ABNORMALITY ABNORMAL RHYTHM ECG Compared to ECG 04/02/2020 20:23:43 T-wave abnormality now present Short RI interval no longer present Electronically Signed On 04-03-2020 20:35:42 CDT by Bert Gaines M.D. [id number]
[2020-04-02] MEDS: iohexol 300 mg/mL 100 mL Btl IV (22:47)
[2020-04-02] MEDS: metoclopramide 5 mg/mL SDV 2 mL 10 MG IVP (23:44)
[2020-04-03] VITALS: BP 147/77; PULSE 107; RESP 18; O2SAT 98
[2020-04-03 00:01] LABS: Lactic Sepsis W/Reflex < 0.2 mmol/L (0.5-2.2)
--- NOTE | 2020-04-03 00:10 | PC.NURSE ---
THIS NURSE ASSUMED CARE OF PT AT THIS TIME.
[2020-04-03 00:58] LABS: SARS Covid-2 Antigen Negative (Negative)
[2020-04-03 01:00] VITALS: BP 129/81; PULSE 80; RESP 16; O2SAT 97
== END 2020-04-03 01:08 | disposition home or self-care (01) ==
PROVIDERS: Emergency Medicine; Emergency Provider Emergency Medicine; PCP Family Medicine
DX: R06.00 Dyspnea, unspecified (principal); R10.10 Upper abdominal pain, unspecified; R07.9 Chest pain, unspecified
CPT/HCPCS: 12345; 71045; 74177; 80053; 81003; 83605; 83690; 83880; 84484; 84703; 85025; 85378; 87426; 93005; 96361; 96374; 96375; 96376; 99283; 99284; J2270; J2405; J2765; J7030; Q9967

== ENCOUNTER 2020-04-12 12:43 | Outpatient (RCR) | payer MEDICARE, OTHER, MEDICAID, SELFPAY | END 2020-05-01 23:59 | disposition home or self-care (01) | LOC: SPO 12:43 | PROVIDERS: PCP Family Medicine; Referring Provider Orthopaedic Surgery Hand Surgery; Visit Provider Orthopaedic Surgery Hand Surgery | DX: R25.2 Cramp and spasm (principal) | CPT/HCPCS: 97110; 97162; 97167; 97530 ==

== ENCOUNTER 2020-05-02 06:00 | Outpatient (RCR) | payer MEDICARE, OTHER, MEDICAID, SELFPAY | END 2020-05-31 23:59 | disposition home or self-care (01) | LOC: SPO 06:00 | PROVIDERS: PCP Family Medicine; Referring Provider Orthopaedic Surgery Hand Surgery; Visit Provider Orthopaedic Surgery Hand Surgery | DX: R25.2 Cramp and spasm (principal) | CPT/HCPCS: 97110; 97113; 97140; 97530 ==

== ENCOUNTER 2020-06-01 06:00 | Outpatient (RCR) | payer MEDICARE, OTHER, MEDICAID, SELFPAY | END 2020-07-01 23:59 | disposition home or self-care (01) | LOC: SPO 06:00 | PROVIDERS: PCP Family Medicine; Referring Provider Orthopaedic Surgery Hand Surgery; Visit Provider Orthopaedic Surgery Hand Surgery | DX: R25.2 Cramp and spasm (principal) | CPT/HCPCS: 97110; 97113; 97140; 97530 ==

== ENCOUNTER 2020-08-01 06:00 | Outpatient (RCR) | payer MEDICARE, OTHER, MEDICAID, SELFPAY | END 2020-08-31 23:59 | disposition home or self-care (01) | LOC: SPO 06:00 | PROVIDERS: PCP Family Medicine; Referring Provider Orthopaedic Surgery Hand Surgery; Visit Provider Orthopaedic Surgery Hand Surgery | DX: G80.0 Spastic quadriplegic cerebral palsy (principal); R25.2 Cramp and spasm | CPT/HCPCS: 97110; 97113; 97530 ==

== ENCOUNTER 2020-09-01 06:00 | Outpatient (RCR) | payer MEDICARE, OTHER, MEDICAID, SELFPAY | END 2020-10-01 23:59 | disposition home or self-care (01) | LOC: SPO 06:00 | PROVIDERS: PCP Family Medicine; Referring Provider Orthopaedic Surgery Hand Surgery; Visit Provider Orthopaedic Surgery Hand Surgery | DX: G80.0 Spastic quadriplegic cerebral palsy (principal) | CPT/HCPCS: 97110; 97530 ==

== ENCOUNTER → 2021-01-16 08:43 | Outpatient (BNVA) | payer MEDICARE, OTHER, MEDICAID, SELFPAY | PROVIDERS: PCP Family Medicine; Visit Provider Psychiatry & Neurology Psychiatry | DX: F33.1 Major depressive disorder, recurrent, moderate (principal); F41.1 Generalized anxiety disorder | CPT/HCPCS: 99204 ==

== ENCOUNTER 2021-07-12 04:40 | Emergency (ER) | payer MEDICARE, MEDICAID, OTHER, SELFPAY ==
[2021-07-12 04:51] VITALS: BP 149/107; PULSE 128; RESP 18; TEMP 36.3; O2SAT 96; BMI 27.4
--- NOTE | 2021-07-12 04:54 | CTR_ITS ---
PROCEDURE INFORMATION: Exam: CT Abdomen And Pelvis With Contrast Exam date and time: 07/12/2021 4:54 AM Age: 21 years old Clinical indication: Nausea and vomiting; Prior surgery; Surgery date: 6+ months; Surgery type: Back TECHNIQUE: Imaging protocol: Computed tomography of the abdomen and pelvis with contrast. Total images: 249 Radiation optimization: All CT scans at this facility use at least one of these dose optimization techniques: automated exposure control; mA and/or kV adjustment per patient size (includes targeted exams where dose is matched to clinical indication); or iterative reconstruction. Contrast material: OMNI 350; Contrast volume: 95 ml; Contrast route: INTRAVENOUS (IV); COMPARISON: CT abdomen pelvis w con* [id number] 04/02/2020 10:32 PM RADIATION DOSE METRICS: Total DLP (mGy-cm): 1698.24 FINDINGS: Liver: Normal. No mass. Gallbladder and bile ducts: Normal. No calcified stones. No ductal dilation. Pancreas: Normal. No ductal dilation. Spleen: Normal. No splenomegaly. Adrenal glands: Normal. No mass. Kidneys and ureters: Normal. No hydronephrosis. Stomach and bowel: Moderate stool burden. Appendix: No evidence of appendicitis. Intraperitoneal space: Unremarkable. No free air. No significant fluid collection. Vasculature: Incidental phleboliths noted. Lymph nodes: Unremarkable. No enlarged lymph nodes. Urinary bladder: Unremarkable as visualized. Reproductive: Unremarkable as visualized. Bones/joints: Extensive streak artifact from the patient's spinal hardware obscuring images. Extensive spinal hardware unchanged in appearance from prior exam. Soft tissues: Unremarkable. CT/CT abdomen pelvis w con* [id number] IMPRESSION: 1. Extensive streak artifact from the patient's spinal hardware obscuring images. 2. Moderate stool burden. 3. No acute process identified. Radiation Dose CTDIVOL = (mGy): DLP = 1698.24 (mGy-cm)
--- NOTE | 2021-07-12 04:55 | ED_ITS ---
Documented by User: Radha Das MD 07/12/21 04:57 HPI - Nausea/Vomiting/Diarrhea General: Chief complaint: Nausea/Vomiting/Diarrhea Stated complaint: N\V Diahrea Time Seen by Provider: 07/12/21 04:50 Source: patient Mode of arrival: ambulatory Limitations: no limitations History of Present Illness: HPI Narrative: 21-year-old female has a history of cerebral palsy she states that over the last day she been having severe vomiting and some diarrhea. She states she has had more episodes of vomiting she can count start able to tolerate any liquids or solids. States she had 1 episode of diarrhea yesterday. She has got abdominal cramping she rates it a 4 out of 10 denies any fevers. Denies any worsening improving factors. Associated nausea: Yes Associated symtoms: Reports nausea; Denies chest pain, dysuria or headache(s) Review of Systems Const: Denies: fever(s), chills, body aches or change in appetite Eyes: Denies: blurry vision or eye discomfort ENMT: Denies: throat pain or dental pain Card: Denies: chest pain Resp: Denies: dyspnea GI: Reports: abdominal pain, nausea, vomiting and diarrhea : Denies: dysuria Musc: Denies: neck pain or back pain Skin/Breast: Denies: rash Neuro: Denies: headache(s) Psych: Denies: depression Alan/Lymph: Denies: easy bruising All/Imm: Denies: urticaria PFS ED PFSH: Social History Smoking and tobacco status: never smoked Second hand smoke exposure: Yes Female Reproductive History: Date of last menstrual period: 07/02/19 Physical Exam Const: COMMON NORMALS: no acute distress, patient oriented x3 and healthy appearing HENMT: COMMON NORMALS: normocephalic and atraumatic HEAD & SCALP: normocephalic and atraumatic Eye: COMMON NORMALS: Equal, round and reactive pupils present and EOMs intact bilaterally PUPIL: Yes Equal, round and reactive pupils present Neck/C-Spine: COMMON NORMALS: full ROM and supple Chest: COMMONS NORMALS: normal inspection of the chest and normal palpation of entire chest wall Resp: COMMON NORMALS: normal respiratory effort, No retractions, No use of accessory muscles and clear to auscultation bilaterally AUSCULTATION: clear to auscultation bilaterally Cardio: COMMON NORMALS: regular rate, regular rhythm and No murmurs present (Cardio) RATE: regular rate RHYTHM: regular rhythm GI: COMMON NORMALS: Normal to inspection, nondistended, normoactive bowel sounds present, Soft to palpation, non-tender and no masses PALPATION: Yes Soft to palpation Extremity: COMMON NORMALS: normal to inspection and full ROM Neuro: COMMON NORMALS: patient oriented x3, moves all extremities and no focal motor deficits Psych: COMMON NORMALS: mental status grossly normal, Normal thought process present and cooperative THOUGHT PROCESS: Normal thought process present Skin: COMMON NORMALS: no rashes or lesions noted and no wounds GENERAL SKIN EXAM: no rashes or lesions noted Course Vital Signs: Vital signs: Vital Signs Temperature 97.4 F L 07/12/21 04:51 Pulse Rate 84 07/12/21 06:25 Respiratory Rate 20 H 07/12/21 06:25 Blood Pressure 101/52 07/12/21 06:25 Pulse Oximetry 100 07/12/21 06:25 MDM - Nausea/Vomiting/Diarrhea Lab Data: Labs: Lab Results 07/12/21 07/12/21 07/12/21 05:45 05:45 05:45 WBC 10.0 10^3/uL 10^3 /uL (4.0-10.0) RBC 4.65 10^6/uL 10^6 /uL (4.1-5.3) Hgb 14.1 g/dL g/dL (11.5-15.3) Hct 42.3 % % (37.0-47.0) MCV 91.0 fl fl (81-99) MCH 30.3 pg pg (28.0-34.0) MCHC 33.3 g/dL g/dL (30.0-36.0) RDW 13.2 % % (12.1-15.1) Plt Count 229 10^3/cmm 10^3 /cmm (130-400) MPV 10.8 fL H fL (7.4-10.4) Neut % (Auto) 76.1 % % Lymph % (Auto) 16.4 % % [place] % (Auto) 6.5 % % Eos % (Auto) 0.6 % % Baso % (Auto) 0.2 % % Neut # (Auto) 7.63 10^3/uL 10^3 /uL (1.8-7.7) Lymph # (Auto) 1.6 10^3/uL 10^3/ uL (0.8-4.8) [place] # (Auto) 0.7 10^3/uL 10^3/ uL (0.2-0.9) Eos # (Auto) 0.1 10^3/uL 10^3/ uL (0.0-0.8) Baso # (Auto) 0.0 10^3/uL 10^3/ uL (0.0-0.1) Nucleated RBC % (a uto) 0 % % Nucleated RBCs # 0.0 /100WBC /100W BC Sodium 139 mmol/L mmol/L (136-145) Potassium 3.8 mmol/L mmol/L (3.5-5.1) Chloride 103 mmol/L mmol/L (98-107) Carbon Dioxide 20 mmol/L L mmol/ L (22-29) Anion Gap 19.8 H (5-19) BUN 11 mg/dL mg/dL (6-20) Creatinine 0.5 mg/dL mg/dL (0.5-0.9) GFR Calculation 154.3 mL/min H mL /min (90-130) Glucose 82 mg/dL mg/dL (65-115) Calculated Osmolal ity 286 mOsm/kg mOsm/ kg (285-295) Calcium 8.8 mg/dL mg/dL (8.5-10.5) Total Bilirubin 0.4 mg/dL mg/dL (0.15-1.2) AST 14 U/L U/L (0-32) ALT 12 U/L U/L (0-33) Alkaline Phosphata se 100 IU/L IU/L (35-105) Total Protein 7.2 g/dL g/dL (6.6-8.7) Albumin 3.9 g/dL g/dL (3.5-5.2) Globulin 3.3 g/dL g/dL (1.3-4.6) Lipase 31 U/L U/L (13-60) HCG, Qual Negative (Negative) Urine Color Urine Appearance Urine pH Ur Specific Gravit y Urine Protein Urine Glucose (UA) Urine Ketones Urine Blood Urine Nitrate Urine Bilirubin Urine Urobilinogen Ur Leukocyte Radha ase Urine RBC Urine WBC Ur Squamous Epith Cells Amorphous Sediment Urine Bacteria 07/12/21 06:30 WBC RBC Hgb Hct MCV MCH MCHC RDW Plt Count MPV Neut % (Auto) Lymph % (Auto) [place] % (Auto) Eos % (Auto) Baso % (Auto) Neut # (Auto) Lymph # (Auto) [place] # (Auto) Eos # (Auto) Baso # (Auto) Nucleated RBC % (a uto) Nucleated RBCs # Sodium Potassium Chloride Carbon Dioxide Anion Gap BUN Creatinine GFR Calculation Glucose Calculated Osmolal ity Calcium Total Bilirubin AST ALT Alkaline Phosphata se Total Protein Albumin Globulin Lipase HCG, Qual Urine Color Yellow (Yellow) Urine Appearance Sl hazy (CLEAR) Urine pH 5 (5-7) Ur Specific Gravit y 1.025 (1.005-1.030) Urine Protein Trace (Negative) Urine Glucose (UA) Norm (Normal) Urine Ketones 3+ H (Negative) Urine Blood 3+ H (Negative) Urine Nitrate Negative (Negative) Urine Bilirubin 1+ H (Negative) Urine Urobilinogen 1 mg/dL H mg/dL (Negative) Ur Leukocyte Radha ase 1+ H (Negative) Urine RBC 15-25 /hpf H /hpf (0-2) Urine WBC 15-25 /hpf H /hpf (0-5) Ur Squamous Epith Cells 25-40 /hpf H /hpf (0-5) Amorphous Sediment Not Reportable Urine Bacteria 2+ /hpf H /hpf (NONE) Discharge Plan Discharge Patient Disposition: Home Clinical Impression: Pyelonephritis Condition: Stable Prescriptions: New ciprofloxacin HCl 500 mg tablet 500 mg PO Q8H 7 Days Qty: 21 RF: 0 Zofran 4 mg tablet 4 mg PO Q8H PRN (Reason: nausea and vomiting) 3 Days Qty: 5 RF: 0 No Action baclofen 10 mg tablet 10 mg PO DAILY RF: 0 L norgest/e.estradiol-e.estrad [Camrese Lo] 0.10 mg-20 mcg (84)/10 mcg (7) tablets,dose pack,3 month 1 tab PO DAILY RF: 0 clonazepam 0.5 mg tablet 0.5 mg PO BID RF: 0 dapsone 5 % gel 1 applic topical BID RF: 0 famotidine [Acid Rice Dryer Mechanic (famotidine)] 20 mg tablet 20 mg PO DAILY RF: 0 gabapentin 400 mg capsule 400 mg PO BID RF: 0 mupirocin 2 % ointment 1 applic topical BID RF: 0 spironolactone 50 mg tablet 50 mg PO DAILY RF: 0 Tazorac 0.05 % cream 1 applic topical DAILY RF: 0 fluoxetine [Prozac] 20 mg capsule 20 mg PO DAILY Qty: 30 RF: 2 bupropion HCl 150 mg tablet sustained-release 12 hr 150 mg PO BID Qty: 60 RF: 2 Discharge Orders: Discharge ED (Routine); Ordered 07/12/21 Ordered By: Erickson Kwong Referrals: Leatha Mena MD [Primary Care Provider] - 1-3 days Patient Instructions: Kidney Infection (ED), Flank Pain (ED), Opioid Safety Sign Out Sign Out Data: Patient Sign Out occurred on 07/12/21 at 05:59. Patient's care was discussed, and care was transferred from to Erickson Kwong MD. Coding Level of Care Code ED Street Sprinkler for Chg Fwd Exam Comprehensive Documented by User: Erickson Kwong MD 07/12/21 08:00 HPI - Nausea/Vomiting/Diarrhea General: Chief complaint: Nausea/Vomiting/Diarrhea Stated complaint: N\V Diahrea Time Seen by Provider: 07/12/21 04:50 [facility] ED PFSH: Social History Smoking and tobacco status: never smoked Second hand smoke exposure: Yes Course Vital Signs: Vital signs: Vital Signs Temperature 97.4 F L 07/12/21 04:51 Pulse Rate 84 07/12/21 06:25 Respiratory Rate 20 H 07/12/21 06:25 Blood Pressure 101/52 07/12/21 06:25 Pulse Oximetry 100 07/12/21 06:25 MDM - Nausea/Vomiting/Diarrhea MDM Narrative: Medical decision making narrative: Patient signed out to me by Dr. Das. 21-year-old female presents due to flank pain nausea and vomiting. Improved with Zofran tolerate p.o. challenge. Urinalysis concerning for UTI. Given flank tenderness there is concern of pyelonephritis. Otherwise benign abdominal exam and Tellez sign is negative. She is hemodynamically stable afebrile nontoxic-appearing. Initially tachycardic but improved with IV fluids. CT scan does not reveal any acute abnormality. Prescription for Cipro and Zofran provided. At this time I believe patient would be safe for discharge and outpatient follow-up. Return precautions provided. Plan was reviewed with the patient who expressed understanding. Questions answered. Patient will follow up with PCP. Patient discharged in stable condition. Lab Data: Labs: Lab Results 07/12/21 07/12/21 07/12/21 05:45 05:45 05:45 WBC 10.0 10^3/uL 10^3 /uL (4.0-10.0) RBC 4.65 10^6/uL 10^6 /uL (4.1-5.3) Hgb 14.1 g/dL g/dL (11.5-15.3) Hct 42.3 % % (37.0-47.0) MCV 91.0 fl fl (81-99) MCH 30.3 pg pg (28.0-34.0) MCHC 33.3 g/dL g/dL (30.0-36.0) RDW 13.2 % % (12.1-15.1) Plt Count 229 10^3/cmm 10^3 /cmm (130-400) MPV 10.8 fL H fL (7.4-10.4) Neut % (Auto) 76.1 % % Lymph % (Auto) 16.4 % % [place] % (Auto) 6.5 % % Eos % (Auto) 0.6 % % Baso % (Auto) 0.2 % % Neut # (Auto) 7.63 10^3/uL 10^3 /uL (1.8-7.7) Lymph # (Auto) 1.6 10^3/uL 10^3/ uL (0.8-4.8) [place] # (Auto) 0.7 10^3/uL 10^3/ uL (0.2-0.9) Eos # (Auto) 0.1 10^3/uL 10^3/ uL (0.0-0.8) Baso # (Auto) 0.0 10^3/uL 10^3/ uL (0.0-0.1) Nucleated RBC % (a uto) 0 % % Nucleated RBCs # 0.0 /100WBC /100W BC Sodium 139 mmol/L mmol/L (136-145) Potassium 3.8 mmol/L mmol/L (3.5-5.1) Chloride 103 mmol/L mmol/L (98-107) Carbon Dioxide 20 mmol/L L mmol/ L (22-29) Anion Gap 19.8 H (5-19) BUN 11 mg/dL mg/dL (6-20) Creatinine 0.5 mg/dL mg/dL (0.5-0.9) GFR Calculation 154.3 mL/min H mL /min (90-130) Glucose 82 mg/dL mg/dL (65-115) Calculated Osmolal ity 286 mOsm/kg mOsm/ kg (285-295) Calcium 8.8 mg/dL mg/dL (8.5-10.5) Total Bilirubin 0.4 mg/dL mg/dL (0.15-1.2) AST 14 U/L U/L (0-32) ALT 12 U/L U/L (0-33) Alkaline Phosphata se 100 IU/L IU/L (35-105) Total Protein 7.2 g/dL g/dL (6.6-8.7) Albumin 3.9 g/dL g/dL (3.5-5.2) Globulin 3.3 g/dL g/dL (1.3-4.6) Lipase 31 U/L U/L (13-60) HCG, Qual Negative (Negative) Urine Color Urine Appearance Urine pH Ur Specific Gravit y Urine Protein Urine Glucose (UA) Urine Ketones Urine Blood Urine Nitrate Urine Bilirubin Urine Urobilinogen Ur Leukocyte Radha ase Urine RBC Urine WBC Ur Squamous Epith Cells Amorphous Sediment Urine Bacteria 07/12/21 06:30 WBC RBC Hgb Hct MCV MCH MCHC RDW Plt Count MPV Neut % (Auto) Lymph % (Auto) [place] % (Auto) Eos % (Auto) Baso % (Auto) Neut # (Auto) Lymph # (Auto) [place] # (Auto) Eos # (Auto) Baso # (Auto) Nucleated RBC % (a uto) Nucleated RBCs # Sodium Potassium Chloride Carbon Dioxide Anion Gap BUN Creatinine GFR Calculation Glucose Calculated Osmolal ity Calcium Total Bilirubin AST ALT Alkaline Phosphata se Total Protein Albumin Globulin Lipase HCG, Qual Urine Color Yellow (Yellow) Urine Appearance Sl hazy (CLEAR) Urine pH 5 (5-7) Ur Specific Gravit y 1.025 (1.005-1.030) Urine Protein Trace (Negative) Urine Glucose (UA) Norm (Normal) Urine Ketones 3+ H (Negative) Urine Blood 3+ H (Negative) Urine Nitrate Negative (Negative) Urine Bilirubin 1+ H (Negative) Urine Urobilinogen 1 mg/dL H mg/dL (Negative) Ur Leukocyte Radha ase 1+ H (Negative) Urine RBC 15-25 /hpf H /hpf (0-2) Urine WBC 15-25 /hpf H /hpf (0-5) Ur Squamous Epith Cells 25-40 /hpf H /hpf (0-5) Amorphous Sediment Not Reportable Urine Bacteria 2+ /hpf H /hpf (NONE) Discharge Plan Discharge Patient Disposition: Home Clinical Impression: Pyelonephritis Condition: Stable Prescriptions: New ciprofloxacin HCl 500 mg tablet 500 mg PO Q8H 7 Days Qty: 21 RF: 0 Zofran 4 mg tablet 4 mg PO Q8H PRN (Reason: nausea and vomiting) 3 Days Qty: 5 RF: 0 No Action baclofen 10 mg tablet 10 mg PO DAILY RF: 0 L norgest/e.estradiol-e.estrad [Camrese Lo] 0.10 mg-20 mcg (84)/10 mcg (7) tablets,dose pack,3 month 1 tab PO DAILY RF: 0 clonazepam 0.5 mg tablet 0.5 mg PO BID RF: 0 dapsone 5 % gel 1 applic topical BID RF: 0 famotidine [Acid Rice Dryer Mechanic (famotidine)] 20 mg tablet 20 mg PO DAILY RF: 0 gabapentin 400 mg capsule 400 mg PO BID RF: 0 mupirocin 2 % ointment 1 applic topical BID RF: 0 spironolactone 50 mg tablet 50 mg PO DAILY RF: 0 Tazorac 0.05 % cream 1 applic topical DAILY RF: 0 fluoxetine [Prozac] 20 mg capsule 20 mg PO DAILY Qty: 30 RF: 2 bupropion HCl 150 mg tablet sustained-release 12 hr 150 mg PO BID Qty: 60 RF: 2 Discharge Orders: Discharge ED (Routine); Ordered 07/12/21 Ordered By: Erickson Kwong Referrals: Leatha Mena MD [Primary Care Provider] - 1-3 days Patient Instructions: Kidney Infection (ED), Flank Pain (ED), Opioid Safety Sign Out Sign Out Data: Patient Sign Out occurred on 07/12/21 at 05:59. Patient's care was discussed, and care was transferred from to Erickson Kwong MD. Coding Level of Care Code ED Street Sprinkler for Chg Fwd Exam Comprehensive
[2021-07-12] MEDS: sodium chloride 0.9% 1,000 ML 999 ML IV (05:15)
[2021-07-12] MEDS: LORazepam 2 mg/mL INJ 1 mL 1 MG IVP (05:18)
[2021-07-12] MEDS: ondansetron 2 mg/ML SDV 2 mL 4 MG IVP (05:20)
[2021-07-12] MEDS: diphenoxylate/atropine Tablet 1 TAB PO (05:30)
[2021-07-12 06:04] LABS: Basophils % 0.2 %; Eosinophils # 0.1 10^3/uL (0.0-0.8); Eosinophils % 0.6 %; Hematocrit 42.3 % (37.0-47.0); Hemoglobin 14.1 g/dL (11.5-15.3); Lymphocytes # 1.6 10^3/uL (0.8-4.8); Lymphocytes % 16.4 %; Mean Corpuscular HGB Conc 33.3 g/dL (30.0-36.0); Mean Corpuscular Hemoglobin 30.3 pg (28.0-34.0); Mean Platelet Volume 10.8 fL (7.4-10.4); Monocytes # 0.7 10^3/uL (0.2-0.9); Monocytes % 6.5 %; Neutrophils # 7.63 10^3/uL (1.8-7.7); Neutrophils % 76.1 %; Nucleated Red Blood Cells % 0 %; Platelet Count 229 10^3/cmm (130-400); Red Blood Count 4.65 10^6/uL (4.1-5.3); Red Cell Distribution Width 13.2 % (12.1-15.1)
[2021-07-12 06:17] LABS: HCG, Serum Qual Negative (Negative)
[2021-07-12 06:21] LABS: Alanine Aminotransferase 12 U/L (0-33); Albumin Level 3.9 g/dL (3.5-5.2); Alkaline Phosphatase 100 IU/L (35-105); Anion Gap 19.8 (5-19); Aspartate Amino Transferase 14 U/L (0-32); Blood Urea Nitrogen 11 mg/dL (6-20); Calcium 8.8 mg/dL (8.5-10.5); Carbon Dioxide 20 mmol/L (22-29); Chloride 103 mmol/L (98-107); Globulin 3.3 g/dL (1.3-4.6); Glomerular Filtration Rate 154.3 mL/min (90-130); Glucose 82 mg/dL (65-115); Lipase 31 U/L (13-60); Osmolality Calculated 286 mOsm/kg (285-295); Potassium 3.8 mmol/L (3.5-5.1); Sodium 139 mmol/L (136-145); Total Bilirubin 0.4 mg/dL (0.15-1.2); Total Protein 7.2 g/dL (6.6-8.7)
[2021-07-12 06:25] VITALS: BP 101/52; PULSE 84; RESP 20; O2SAT 100
[2021-07-12 06:49] LABS: Specific Gravity, Urine 1.025 (1.005-1.030); Urine Appearance SL Hazy (CLEAR); Urine Color Yellow (Yellow); pH Urine 5 (5-7)
[2021-07-12 06:50] LABS: Add Urine Microscopic? YES; Bilirubin Urine 1+ (Negative); Blood Urine 3+ (Negative); Glucose Urine UA Norm (Normal); Ketones Urine 3+ (Negative); Leukocyte Esterase Urine 1+ (Negative); Nitrate Urine Negative (Negative); Protein Urine Trace (Negative); Urobilinogen Urine 1 mg/dL (Negative)
[2021-07-12 06:54] LABS: Bacteria Urine 2+ /hpf; RBC Urine 15-25 /hpf (0-2); Squamous Epithelial Cell Urine 25-40 /hpf (0-5); WBC Urine 15-25 /hpf (0-5)
[2021-07-12 06:55] LABS: Add Urine Culture? No
[2021-07-12] MEDS: iohexol 350 mg/mL 100 mL Btl IV (07:36)
[2021-07-12] MEDS: ondansetron 4 MG Tablet PO (07:56)
== END 2021-07-12 08:09 | disposition home or self-care (01) ==
PROVIDERS: Emergency Medicine; Emergency Provider Emergency Medicine; PCP Family Medicine
DX: N12 Tubulo-interstitial nephritis, not specified as acute or chronic (principal); Z77.22 Contact with and (suspected) exposure to environmental tobacco smoke (acute) (chronic)
CPT/HCPCS: 74177; 80053; 81001; 83690; 84703; 85025; 96361; 96374; 96375; 99283; J2060; J2405; J7030; Q0162; Q9967

== ENCOUNTER 2021-10-12 12:17 | Outpatient (CLI) | payer MEDICARE, OTHER, MEDICAID, SELFPAY ==
[2021-10-12 12:20] VITALS: BP 128/84; PULSE 95; RESP 17; TEMP 36.9; O2SAT 99; BMI 30.1
[2021-10-12] MEDS: diphenhydrAMINE 50 mg/mL SDV 1mL 25 MG IVP (13:25)
[2021-10-12 13:42] VITALS: BP 128/72; PULSE 91; RESP 16; TEMP 37; O2SAT 98
[2021-10-12 14:38] VITALS: BP 124/76; PULSE 95; RESP 16; TEMP 37; O2SAT 99
== END 2021-10-12 14:38 | disposition home or self-care (01) ==
LOC: OPS 12:20
PROVIDERS: PCP Family Medicine; Visit Provider Nurse Practitioner Family
DX: U07.1 COVID-19 (principal)
CPT/HCPCS: 96365; 96375; J1200

== ENCOUNTER 2022-04-21 09:12 | Emergency (ER) | payer MEDICARE, OTHER, MEDICAID, SELFPAY ==
[2022-04-21] VITALS (9 sets, daily range): BP systolic 118–177; BP diastolic 69–125; PULSE 72–88; RESP 16; TEMP 36.8; O2SAT 94–99; BMI 30.1
--- NOTE | 2022-04-21 09:52 | XRR_ITS ---
PROCEDURE INFORMATION: Exam: XR Abdomen Exam date and time: 04/21/2022 11:00 AM Age: 22 years old Clinical indication: Abdominal pain TECHNIQUE: Imaging protocol: Radiologic exam of the abdomen. Views: Frontal supine view of the abdomen. 1 View. COMPARISON: CT abdomen pelvis w con* [id number] 07/12/2021 7:17 AM FINDINGS: Evaluation is limited due to patient body habitus. Gastrointestinal tract: Nonspecific bowel dilatation in the visualized upper abdomen. Intraperitoneal space: Incomplete visualization of the superior and left lateral most aspects of the abdomen. Bones/joints: Postoperative change in the spine and pelvis. Osteopenia and degenerative change. Soft tissues: Panniculus and skin fold. XR/[place] KUB [id number] IMPRESSION: Nonspecific bowel dilatation in the visualized upper abdomen.
--- NOTE | 2022-04-21 09:53 | ED_ITS ---
HPI - Abdominal Pain General: Chief Complaint: Abdominal Pain Stated Complaint: abdomen and back pain Time Seen by Provider: 04/21/22 09:20 Source: patient Mode of arrival: wheelchair Limitations: other (cerebral palsy) History of Present Illness: 22-year-old female with a history of several palsy presents to the ER today for abdominal pain and back pain for the last several days. Patient reports this really got bad this morning and she reports she just feels abnormal. Patient reports 2 days ago she had a bowel movement and noticed some blood in her stool. Patient reports she has been on a stool softener however ran out and has been out for several days now. Patient reports she notices pain in the epigastric and left upper quadrant area and she has some nausea. Patient reports chills and not sleeping last night. She reports some decreased urination. She denies pain with urination. Patient does not report that food makes a difference in her pain. Patient reports slightly decreased appetite over the last 24 hours however otherwise has eaten okay. Related Data: Date of Last Menstrual Period: 07/02/19 Review of Systems General: Reports: 10 or more systems reviewed and unremarkable except in HPI and below PFSH ED PFSH: Social History Smoking and tobacco status: never smoked Second hand smoke exposure: Yes Female Reproductive History: Date of last menstrual period: 07/02/19 Physical Exam Const: COMMON NORMALS: no acute distress, patient oriented x3, alert and well nourished; limitations (cerebral palsy) HENMT: COMMON NORMALS: normocephalic, atraumatic, external ears normal, Normal external nose present, Normal nasal mucous membranes and turbinates present and moist oral mucous membranes HEAD & SCALP: normocephalic and atraumatic NOSE: Normal external nose present and Normal nasal mucous membranes and turbinates present EXTERNAL EAR: Yes external ears normal Eye: COMMON NORMALS: conjunctivae normal CONJUNCTIVA: Yes conjunctivae no rmal Resp: COMMON NORMALS: normal respiratory effort, No retractions and clear to auscultation bilaterally EFFORT & INSPECTION: Yes able to speak in complete sentences and No respiratory distress AUSCULTATION: clear to auscultation bilaterally Cardio: COMMON NORMALS: regular rate, regular rhythm and No murmurs present (Cardio) RATE: regular rate RHYTHM: regular rhythm GI: COMMON NORMALS: Normal to inspection, nondistended, normoactive bowel sounds present and Soft to palpation PALPATION: Yes Soft to palpation and Yes Tenderness to palpation present (GI) Details: LUQ and other (epigastric) : COMMON NORMALS: Yes no CVA tenderness BLADDER/KIDNEY EXAM: Yes no CVA tenderness Back/Pelvis: COMMON NORMALS: no CVA tenderness Extremity: OTHER: pt in wheelchair, no edema or deformities noted Neuro: COMMON NORMALS: patient oriented x3 SENSORIUM/ORIENTATION: Yes alert Psych: COMMON NORMALS: mental status grossly normal, Normal thought process present and cooperative THOUGHT PROCESS: Normal thought process present Skin: COMMON NORMALS: no rashes or lesions noted and no wounds GENERAL SKIN EXAM: no rashes or lesions noted Course ED course: 22-year-old female with a history of cerebral palsy presents to the ER today for abdominal pain and back pain times several days. Patient reports she had a bowel movement 2 days ago and noticed some blood. She reports she normally takes a stool softener however ran out and has not had normal bowel movements since running out. Patient reports some nausea that is worse in the last 24 hours. Patient reports not sleeping last night due to discomfort. Patient reports some decreased urination but denies pain with urination. Patient denies any fever or chills. She does report increased acid reflux also. No recent illnesses reported. We will do CBC, CMP, lipase, UA and a KUB. Vital Signs: Vital signs: Vital Signs Temperature 98.2 F 04/21/22 09:49 Pulse Rate 86 04/21/22 13:00 Respiratory Rate 16 04/21/22 09:49 Blood Pressure 162/125 04/21/22 12:30 Pulse Oximetry 95 04/21/22 13:00 Oxygen Delivery Ok thod 04/21/22 13:00 MDM - Abdominal Pain Medical Decision Making 22-year-old female with a history of cerebral palsy presents to the ER today for abdominal pain and back pain times several days. Patient reports she had a bowel movement 2 days ago and noticed some blood. She reports she normally takes a stool softener however ran out and has not had normal bowel movements since running out. Patient reports some nausea that is worse in the last 24 hours. Patient reports not sleeping last night due to discomfort. Patient reports some decreased urination but denies pain with urination. Patient denies any fever or chills. She does report increased acid reflux also. No recent illnesses reported. We will do CBC, CMP, lipase, UA and a KUB; labs indicate slightly elevated liver enzymes. Patient's KUB indicates probable constipation and CT was done given the elevated liver enzymes. CT indicates some air-fluid levels and stool near the rectum. Likely patient is experiencing some significant constipation from having stopped her stool softeners. UA does show some blood and leukocytes. We will go ahead and treat for UTI in addition to constipation. I recommended patient get some MiraLAX and take that daily until she receives her stool softeners in the mail. Patient should push fluids and try to get up and change positions more frequently to help her bowels move along. Patient should follow-up with her PCP in 3 to 5 days. Return to the ER with any new or worsening symptoms. Patient verbalized understanding and was in agreement with the treatment plan. Lab Data : 04/21/22 10:51 04/21/22 10:51 Labs/Radiology: Radiology Impressions KUB X-Ray 04/21/22 09:52 IMPRESSION: Nonspecific bowel dilatation in the visualized upper abdomen. Abdomen/Pelvis CT 04/21/22 11:52 IMPRESSION: 1. Asymmetric bladder wall thickening. 2. Combined small bowel and colonic dilatation along with scattered air-fluid levels and a dilated stool-filled rectum. 3. Additional findings as described above. Laboratory Results WBC 7.8 10^3/uL (4.0-10.0) 04/21/22 10:51 RBC 4.75 10^6/uL (4.1-5.3) 04/21/22 10:51 Hgb 14.1 g/dL (11.5-15.3) 04/21/22 10:51 Hct 44.1 % (37.0-47.0) 04/21/22 10:51 MCV 92.8 fl (81-99) 04/21/22 10:51 MCH 29.7 pg (28.0-34.0) 04/21/22 10:51 MCHC 32.0 g/dL (30.0-36.0) 04/21/22 10:51 RDW 13.0 % (12.1-15.1) 04/21/22 10:51 Plt Count 232 10^3/cmm (130-400) 04/21/22 10:51 MPV 10.3 fL (7.4-10.4) 04/21/22 10:51 Neut % (Auto) 66.4 % 04/21/22 10:51 Lymph % (Auto) 22.9 % 04/21/22 10:51 Norton % (Auto) 8.1 % 04/21/22 10:51 Eos % (Auto) 1.8 % 04/21/22 10:51 Baso % (Auto) 0.4 % 04/21/22 10:51 Neut # (Auto) 5.19 10^3/uL (1.8-7.7) 04/21/22 10:51 Lymph # (Auto) 1.8 10^3/uL (0.8-4.8) 04/21/22 10:51 Norton # (Auto) 0.6 10^3/uL (0.2-0.9) 04/21/22 10:51 Eos # (Auto) 0.1 10^3/uL (0.0-0.8) 04/21/22 10:51 Baso # (Auto) 0.0 10^3/uL (0.0-0.1) 04/21/22 10:51 Nucleated RBC % (auto) 0 % 04/21/22 10:51 Nucleated RBCs # 0.0 /100WBC 04/21/22 10:51 Sodium 137 mmol/L (136-145) 04/21/22 10:51 Potassium 4.5 mmol/L (3.5-5.1) 04/21/22 10:51 Chloride 102 mmol/L (98-107) 04/21/22 10:51 Carbon Dioxide 22 mmol/L (22-29) 04/21/22 10:51 Anion Gap 17.5 (5-19) 04/21/22 10:51 BUN 10 mg/dL (6-20) 04/21/22 10:51 Creatinine 0.5 mg/dL (0.5-0.9) 04/21/22 10:51 GFR Calculation 152.9 mL/min (90-130) H 04/21/22 10:51 Glucose 99 mg/dL (65-115) 04/21/22 10:51 Calculated Osmolality 283 mOsm/kg (285-295) L 04/21/22 10:51 Calcium 9.8 mg/dL (8.5-10.5) 04/21/22 10:51 Total Bilirubin 0.3 mg/dL (0.15-1.2) 04/21/22 10:51 AST 34 U/L (0-32) H 04/21/22 10:51 ALT 54 U/L (0-33) H 04/21/22 10:51 Alkaline Phosphatase 130 U/L (35-105) H 04/21/22 10:51 Total Protein 7.5 g/dL (6.6-8.7) 04/21/22 10:51 Albumin 4.3 g/dL (3.5-5.2) 04/21/22 10:51 Globulin 3.2 g/dL (1.3-4.6) 04/21/22 10:51 Lipase 39 U/L (13-60) 04/21/22 10:51 Urine Color Yellow (Yellow) 04/21/22 13:40 Urine Appearance Sl hazy (CLEAR) 04/21/22 13:40 Urine pH 6.5 (5-7) 04/21/22 13:40 Ur Specific Radnor 1.005 (1.005-1.030) 04/21/22 13:40 Urine Protein Neg (Negative) 04/21/22 13:40 Urine Glucose (UA) Norm (Normal) 04/21/22 13:40 Urine Ketones 2+ (Negative) H 04/21/22 13:40 Urine Blood 2+ (Negative) H 04/21/22 13:40 Urine Nitrate Negative (Negative) 04/21/22 13:40 Urine Bilirubin Neg (Negative) 04/21/22 13:40 Urine Urobilinogen Norm mg/dL (Negative) 04/21/22 13:40 Ur Leukocyte Esterase 1+ (Negative) H 04/21/22 13:40 Urine RBC 0-4 /hpf (0-2) H 04/21/22 13:40 Urine WBC 0-4 /hpf (0-5) H 04/21/22 13:40 Ur Squamous Epith Cells 0-4 /hpf (0-5) H 04/21/22 13:40 Amorphous Sediment Not Reportable 04/21/22 13:40 Urine Bacteria 1+ /hpf (NONE) H 04/21/22 13:40 Critical Care Time Critical Care Time: Critical Care Time: No Discharge Plan Discharge Patient Disposition: Home Clinical Impression: Constipation, UTI (urinary tract infection) Condition: Stable Prescriptions: New Macrobid 100 mg capsule 100 mg PO BID 5 Days Qty: 10 0RF Rx Instructions: must administer with a meal/food No Action baclofen 10 mg tablet 10 mg PO DAILY L norgest/e.estradiol-e.estrad [Camrese Lo] 0.10 mg-20 mcg (84)/10 mcg (7) tablets,dose pack,3 month 1 tab PO DAILY clonazepam 0.5 mg tablet 0.5 mg PO BID Rx Instructions: Take one half in AM & one at HS. dapsone 5 % gel 1 applic topical BID Rx Instructions: rub in gently and completely famotidine [Acid Engineer/Conductor (famotidine)] 20 mg tablet 20 mg PO DAILY gabapentin 400 mg capsule 400 mg PO BID mupirocin 2 % ointment 1 applic topical BID spironolactone 50 mg tablet 50 mg PO DAILY Tazorac 0.05 % cream 1 applic topical DAILY fluoxetine [Prozac] 20 mg capsule 20 mg PO DAILY Qty: 30 2RF bupropion HCl 150 mg tablet sustained-release 12 hr 150 mg PO BID Qty: 60 2RF Discharge Orders: Discharge ED (Routine); Ordered 04/21/22 Ordered By: Tootie Crockett Referrals: Leatha Mena MD [Primary Care Provider] - Discharge Diet: Usual diet Discharge Activity: Resume usual activity Patient Instructions: Opioid Safety Activity Restrictions/Additional Instructions: Take Macrobid as prescribed. Increase water intake. Take Colace and MiraLAX as discussed. Follow-up with PCP in 2 to 3 days if no improvement. Return to the ER with new or worsening symptoms. Coding Level of Care Code ED Floating Derrick Operator for Cruzg Fwd Exam Comprehensive
[2022-04-21 11:21] LABS: Basophils % 0.4 %; Eosinophils # 0.1 10^3/uL (0.0-0.8); Eosinophils % 1.8 %; Hematocrit 44.1 % (37.0-47.0); Hemoglobin 14.1 g/dL (11.5-15.3); Lymphocytes # 1.8 10^3/uL (0.8-4.8); Lymphocytes % 22.9 %; Mean Corpuscular Hemoglobin 29.7 pg (28.0-34.0); Mean Corpuscular Volume 92.8 fl (81-99); Mean Platelet Volume 10.3 fL (7.4-10.4); Monocytes # 0.6 10^3/uL (0.2-0.9); Monocytes % 8.1 %; Neutrophils # 5.19 10^3/uL (1.8-7.7); Neutrophils % 66.4 %; Nucleated Red Blood Cells % 0 %; Platelet Count 232 10^3/cmm (130-400); Red Blood Count 4.75 10^6/uL (4.1-5.3); White Blood Count 7.8 10^3/uL (4.0-10.0)
[2022-04-21 11:37] LABS: Alanine Aminotransferase 54 U/L (0-33); Albumin Level 4.3 g/dL (3.5-5.2); Alkaline Phosphatase 130 U/L (35-105); Blood Urea Nitrogen 10 mg/dL (6-20); Calcium 9.8 mg/dL (8.5-10.5); Carbon Dioxide 22 mmol/L (22-29); Chloride 102 mmol/L (98-107); Globulin 3.2 g/dL (1.3-4.6); Glomerular Filtration Rate 152.9 mL/min (90-130); Glucose 99 mg/dL (65-115); Lipase 39 U/L (13-60); Osmolality Calculated 283 mOsm/kg (285-295); Sodium 137 mmol/L (136-145); Total Bilirubin 0.3 mg/dL (0.15-1.2); Total Protein 7.5 g/dL (6.6-8.7)
[2022-04-21 11:42] LABS: Anion Gap 17.5 (5-19); Potassium 4.5 mmol/L (3.5-5.1)
[2022-04-21 11:43] LABS: Aspartate Amino Transferase 34 U/L (0-32)
--- NOTE | 2022-04-21 11:52 | CTR_ITS ---
PROCEDURE INFORMATION: Exam: CT Abdomen And Pelvis With Contrast Exam date and time: 04/21/2022 1:48 PM Age: 22 years old Clinical indication: Abdominal pain; Generalized; Prior surgery; Surgery date: 6+ months TECHNIQUE: Imaging protocol: Computed tomography of the abdomen and pelvis with contrast. Radiation optimization: All CT scans at this facility use at least one of these dose optimization techniques: automated exposure control; mA and/or kV adjustment per patient size (includes targeted exams where dose is matched to clinical indication); or iterative reconstruction. Contrast material: OMNI 350; Contrast volume: 80 ml; Contrast route: INTRAVENOUS (IV); COMPARISON: CT abdomen pelvis w con* [id number] 07/12/2021 7:17 AM RADIATION DOSE METRICS: Total DLP (mGy-cm): 858.35 FINDINGS: Beam hardening artifact in association with surgical hardware. Lungs: No acute airspace or pleural disease. Liver: No focal hepatic mass. Gallbladder and bile ducts: Unremarkable gallbladder. Pancreas: No pancreatic mass or ductal dilatation. Spleen: No splenomegaly. Adrenal glands: Unremarkable adrenals. Kidneys and ureters: Normal renal morphology. No hydronephrosis. Stomach and bowel: Combined small bowel and colonic dilatation along with scattered air-fluid levels and a dilated stool-filled rectum. No focal transition zone. Appendix: Nonvisualization of the appendix. Intraperitoneal space: No significant free fluid. Vasculature: Normal caliber of the abdominal aorta. Lymph nodes: Subcentimeter lymph nodes. Urinary bladder: Asymmetric bladder wall thickening. Reproductive: Unremarkable as visualized. Bones/joints: Extensive surgical hardware in the visualized spine and pelvis along with osseous fusion in the setting of scoliosis. Soft tissues: Fat containing umbilical hernia. CT/CT abdomen pelvis w con* [id number] IMPRESSION: 1. Asymmetric bladder wall thickening. 2. Combined small bowel and colonic dilatation along with scattered air-fluid levels and a dilated stool-filled rectum. 3. Additional findings as described above.
[2022-04-21] MEDS: iohexol 350 mg/mL 100 mL Btl IV (13:58)
[2022-04-21 14:38] LABS: Urine Appearance SL Hazy (CLEAR); Urine Color Yellow (Yellow)
[2022-04-21 14:39] LABS: Add Urine Microscopic? YES; Bilirubin Urine Neg (Negative); Blood Urine 2+ (Negative); Glucose Urine UA Norm (Normal); Ketones Urine 2+ (Negative); Leukocyte Esterase Urine 1+ (Negative); Nitrate Urine Negative (Negative); Protein Urine Neg (Negative); Specific Gravity, Urine 1.005 (1.005-1.030); Urobilinogen Urine Norm (Negative); pH Urine 6.5 (5-7)
[2022-04-21 14:40] LABS: Add Urine Culture? Yes; Bacteria Urine 1+ /hpf; RBC Urine 0-4 /hpf (0-2); Squamous Epithelial Cell Urine 0-4 /hpf (0-5); WBC Urine 0-4 /hpf (0-5)
== END 2022-04-21 15:45 | disposition home or self-care (01) ==
PROVIDERS: Emergency Provider Physician Assistant; PCP Family Medicine
DX: K59.00 Constipation, unspecified (principal); N39.0 Urinary tract infection, site not specified; Z77.22 Contact with and (suspected) exposure to environmental tobacco smoke (acute) (chronic)
CPT/HCPCS: 36415; 74018; 74177; 80053; 81001; 83690; 85025; 87086; 99284; Q9967

== ENCOUNTER 2022-06-13 19:13 | Emergency (ER) | payer MEDICARE, OTHER, MEDICAID, SELFPAY ==
[2022-06-13 19:19] VITALS: BP 139/75; PULSE 63; RESP 16; TEMP 36.3; O2SAT 99
--- NOTE | 2022-06-13 20:37 | ED_ITS ---
HPI - Extremity Problem General: Chief complaint: Extremity Problem,Nontraumatic Stated complaint: sent by PCP for possible blood clot Time Seen by Provider: 06/13/22 20:37 History of Present Illness: Ms Arellano is a 22-year-old lady with significant past medical history of cerebral palsy and wheelchair dependence who presents to the emergency department due to leg and bilateral ankle pain. She reports worsening symptoms for approximately 3 days. Typically she has mild degree of dependent edema however this is perhaps worse and worse on the left. She does have a history of surgeries though no recent surgeries. Denies signs systemic illness. Intensity of discomfort is moderate compared to her normal mild. Saw PCP who recommended ED evaluation for DVT. Does report chronic history of cool and discolored extremities. No other specific changes in health, exacerbating, or alleviating factors identified. Onset (ago): day(s) Pain Consistency: constant Location: lower extremity Quality: burning and aching Associated symptoms: Reports other Review of Systems General: Reports: 10 or more systems reviewed and unremarkable except in HPI and below PFSH ED PFSH: Medical History Cerebral palsy Generalized anxiety disorder Major depressive disorder, recurrent, moderate Wheelchair dependence Surgical History History of ankle surgery Social History Smoking and tobacco status: never smoked Second hand smoke exposure: Yes Female Reproductive History: Date of last menstrual period: 07/02/19 Physical Exam Const: COMMON NORMALS: alert GENERAL APPEARANCE: cooperative and well developed HENMT: COMMON NORMALS: normocephalic and atraumatic HEAD & SCALP: normocephalic and atraumatic Eye: COMMON NORMALS: conjunctivae normal CONJUNCTIVA: Yes conjunctivae normal SCLERA: sclerae normal Neck/C-Spine: COMMON NORMALS: supple GENERAL: Yes trachea midline Resp: COMMON NORMALS: normal respiratory effort and clear to auscultation bilaterally EFFORT & INSPECTION: Yes able to speak in complete sentences AUSCULTATION: clear to auscultation bilaterally Cardio: COMMON NORMALS: regular rate and regular rhythm RATE: regular rate RHYTHM: regular rhythm GI: PALPATION: No Tenderness to palpation present (GI) Extremity: NARRATIVE EXTREMITY EXAM: Bilateral lower extremity discoloration and coolness which is symmetric. Some edema noted. DP/PT Doppler symmetric signals present bilaterally. Cap refill intact. No wounds or lacerations appreciated on clinical exam. GENERAL: Yes normal exam except as noted and Yes edema Neuro: SENSORIUM/ORIENTATION: Yes alert and No Orientation impaired OTHER: Baseline neurologic exam Psych: COMMON NORMALS: mental status grossly normal and Normal thought process present THOUGHT PROCESS: Normal thought process present Course Vital Signs: Vital signs: Vital Signs Temperature 97.3 F L 06/13/22 19:19 Pulse Rate 65 06/13/22 22:59 Respiratory Rate 16 06/13/22 22:59 Blood Pressure 126/76 06/13/22 22:59 Pulse Oximetry 99 06/13/22 22:59 Oxygen Delivery Me thod 06/13/22 19:19 MDM - Extremity (Nontraumatic) Medical Decision Making 22-year-old female with complicated past medical history presenting for evaluation of neck swelling. Chronically cold but symmetric and discolored feet with dopplerable signals. Ultrasound notable for no DVT identified. Most likely etiology of swelling is gravity dependence in the context of chronic medical condition. Satisfactory for outpatient management. Medical Records I reviewed the patient's medical records. Lab Data I reviewed the patient's lab results. Radiology Impressions Venous Duplex 06/13/22 20:56 IMPRESSION: No evidence of acute right lower extremity DVT. ADDENDUM: 06/13/22 [id number] IMPRESSION: No evidence of acute left lower extremity DVT. Discharge Plan Discharge Patient Disposition: Home Clinical Impression: Leg swelling Condition: Stable Prescriptions: No Action baclofen 10 mg tablet 10 mg PO DAILY L norgest/e.estradiol-e.estrad [Camrese Lo] 0.10 mg-20 mcg (84)/10 mcg (7) tablets,dose pack,3 month 1 tab PO DAILY clonazepam 0.5 mg tablet 0.5 mg PO BID Rx Instructions: Take one half in AM & one at HS. dapsone 5 % gel 1 applic topical BID Rx Instructions: rub in gently and completely famotidine [Acid Hot Cell Technician (famotidine)] 20 mg tablet 20 mg PO DAILY gabapentin 400 mg capsule 400 mg PO BID mupirocin 2 % ointment 1 applic topical BID spironolactone 50 mg tablet 50 mg PO DAILY Tazorac 0.05 % cream 1 applic topical DAILY fluoxetine [Prozac] 20 mg capsule 20 mg PO DAILY Qty: 30 2RF bupropion HCl 150 mg tablet sustained-release 12 hr 150 mg PO BID Qty: 60 2RF Discharge Orders: Discharge ED (Routine); Ordered 06/13/22 Ordered By: Mansoor Guzmán Referrals: Leatha Mena MD [Primary Care Provider] - Discharge Diet: Usual diet Discharge Activity: Increase activity as tolerated Patient Instructions: Leg Edema (ED) Activity Restrictions/Additional Instructions: Thank you for visiting the emergency department. You were seen and evaluated for leg swelling. The exact cause of your symptoms is unclear though no evidence of deep vein thrombosis was identified. There is certainly some component of gravity dependent edema. Please follow-up with your primary care provider. Return to the emergency department for anything that you are concerned about a feel needs emergency department evaluation. Coding Level of Care Code ED Solar Panel Installation Supervisor for Atif Woodard Exam Comprehensive
--- NOTE | 2022-06-13 20:56 | USR_ITS ---
PROCEDURE INFORMATION: Exam: US Duplex Lower Extremity Veins, Bilateral Exam date and time: 06/13/2022 9:18 PM Age: 22 years old Clinical indication: Edema, localized; Lower extremity, bilateral; Patient HX: Spastic / paraplegic patient in motorized chair reports chronic ble edema x 3 months. No history of dvt per patient. ; Additional info: Lower extremity swelling, sensory changes TECHNIQUE: Imaging protocol: Real-time Duplex ultrasound of the bilateral extremities with 2-D barney scale, color Doppler flow and spectral waveform analysis with image documentation. Complete exam focused on the bilateral lower extremity veins. COMPARISON: No relevant prior studies available. FINDINGS: Evaluated veins include the right common femoral, proximal profunda femoral, proximal/mid/distal superficial femoral, popliteal, posterior tibial, and proximal greater saphenous veins. No visible clot in the included veins. The included veins appear normally compressible. Duplex Doppler evaluation demonstrates flow in the evaluated veins. US/[place] [id number] IMPRESSION: No evidence of acute right lower extremity DVT.
[2022-06-13 22:59] VITALS: BP 126/76; PULSE 65; RESP 16; O2SAT 99
== END 2022-06-13 23:00 | disposition home or self-care (01) ==
PROVIDERS: Emergency Provider Emergency Medicine; PCP Family Medicine
DX: M79.89 Other specified soft tissue disorders (principal); G80.9 Cerebral palsy, unspecified; Z77.22 Contact with and (suspected) exposure to environmental tobacco smoke (acute) (chronic)
CPT/HCPCS: 93970; 99284

== ENCOUNTER 2022-06-28 09:54 | Emergency (ER) | payer MEDICARE, OTHER, MEDICAID, SELFPAY ==
[2022-06-28 10:04] VITALS: PULSE 102; RESP 20; TEMP 36.5; O2SAT 94; BMI 30.9
--- NOTE | 2022-06-28 10:05 | XR_ITS ---
WS: [id number] Exam: XR knee LT 3V* [id number] Date/Time of Exam: 06/28/2022 10:30 AM Reason For Exam: fall with pain No acute fracture or dislocation. Degenerative narrowing of the medial and lateral joint compartments . Osteopenia. The patella rides superior to the intercondylar notch of the femur. XR/XR knee LT 3V* [id number] IMPRESSION: 1. No acute fracture or joint effusion. 2. Osteopenia and degenerative changes.
--- NOTE | 2022-06-28 10:05 | CT_ITS ---
WS: [id number] CT HEAD NONCONTRAST HISTORY: fell and hit head on night stand, dizzy, nauseated TECHNIQUE: Contiguous axial imaging performed through the brain in 2.5 mm imaging. Bone and soft tiss ue windows. Sagittal and coronal reformats reviewed. All CT scans at [facility] use at least one of these dose optimization techniques: automated exposure control; mA and/or kV adjustment per pa tient size (includes targeted exams where dose is matched to clinical indication); or iterative recon struction. DLP: 1197.28 mGy.cm COMPARISON: None available. No acute intracranial hemorrhage, midline shift or mass effect. Mild atrophy. No prior infarct. Large dense calcification plaque along the anterior interhemispheric falx. No remodeling of the calvarium. No mass effect upon the brain or edema. Ventricles: Very mildly prominent ventricles. Paranasal sinuses: As visualized are clear. Mastoid air cells: Well pneumatized. Calvarium and scalp: Skull is intact with no soft tissue edema or swelling. CT/CT head wo con* [id number] IMPRESSION: 1. No acute intracranial hemorrhage or edema. 2. Cerebral atrophy and mild ventriculomegaly. No acute findings.
--- NOTE | 2022-06-28 10:05 | XR_ITS ---
WS: [id number] Exam: XR foot LT min 3V* [id number] Date/Time of Exam: 06/28/2022 10:30 AM Reason For Exam: fall with pain No acute fracture or dislocation. Pronounced osteopenia. 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 Soft tissue swelling the forefoot. Bony fusion of the first MP joint. XR/XR foot LT min 3V* [id number] IMPRESSION: 1. No acute fracture. 2. 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 3. Soft tissue swelling the forefoot.
--- NOTE | 2022-06-28 10:17 | W.ED.FALL ---
Documented by User: Tootie Crockett PA-C 06/28/22 11:20 HPI - Fall General: Chief Complaint: Fall Stated Complaint: fall Time Seen by Provider: 06/28/22 10:06 Source: patient Mode of arrival: wheelchair Limitations: no limitations History of Present Illness: 22-year-old female with a history of cerebral palsy presents to the ER today for left foot, left knee, and head pain after fall this morning. Patient reports she was trying to transfer from the bed to the lift to help her get into her chair and the person assisting her it was not doing it correctly and dropped her. Patient reports she hit her head on the nightstand. There was some mild bleeding. She reports dizziness and nausea at this time. Patient also reports severe left foot pain and also left knee pain. Review of Systems General: Reports: 10 or more systems reviewed and unremarkable except in HPI and below PFSH ED PFSH: Medical History Cerebral palsy Generalized anxiety disorder Major depressive disorder, recurrent, moderate Wheelchair dependence Surgical History History of ankle surgery Social History Smoking and tobacco status: never smoked Second hand smoke exposure: Yes Female Reproductive History: Date of last menstrual period: 07/02/19 Physical Exam Const: COMMON NORMALS: patient oriented x3, alert and well nourished HENMT: HEAD & SCALP: abrasion (Mild abrasion noted superior to the left sabianist. No active bleeding.) Eye: COMMON NORMALS: Equal, round and reactive pupils present and conjunctivae normal CONJUNCTIVA: Yes conjunctivae normal PUPIL: Yes Equal, round and reactive pupils present Neck/C-Spine: COMMON NORMALS: full ROM and no lymphadenopathy Resp: COMMON NORMALS: normal respiratory effort EFFORT & INSPECTION: Yes able to speak in complete sentences Cardio: COMMON NORMALS: regular rate and regular rhythm RATE: regular rate RHYTHM: regular rhythm Extremity: NARRATIVE EXTREMITY EXAM: Patient has tenderness over the left foot and also left knee. No obvious deformity however patient's baseline is not completely normal given her cerebral palsy. No obvious swelling noted to either. Neuro: COMMON NORMALS: patient oriented x3 SENSORIUM/ORIENTATION: Yes alert Psych: MOOD & AFFECT: Yes tearful Skin: NARRATIVE SKIN EXAM: Small nonbleeding abrasion noted superior to the left sabianist in the scalp line. Course ED course: Patient fell this morning when trying to transfer from her bed to her lift. Patient's caregiver was not giving appropriate help and she fell. Patient hit her head on the nightstand. She reports dizziness and nausea so we will go ahead and get a head CT at this time. Patient also reports left foot and left knee pain so we will get x-rays of that. Vital Signs: Vital signs: Vital Signs Temperature 97.7 F 06/28/22 10:04 Pulse Rate 102 H 06/28/22 10:04 Respiratory Rate 20 H 06/28/22 10:04 Pulse Oximetry 94 06/28/22 10:04 MDM - Fall Medical Decision Making X-ray of the foot and knee indicate significant degeneration and osteoarthritis however no acute fractures are noted. No dislocations noted. Head CT is normal. Discussed findings with patient. We discussed that likely these are contusions of these areas and she has exacerbated the arthritic pain she has. Patient reports she is out of her gabapentin which usually does help the pain some. We will refill the gabapentin today along with trying some naproxen. Recommended rest and ice. Patient should follow-up with her doctor in 4 to 5 days. Return to the ER with any new or worsening symptoms. Patient verbalized understanding and was in agreement with the treatment plan. Lab Data Radiology Impressions Foot X-Ray 06/28/22 10:05 IMPRESSION: 1. No acute fracture. 2. 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 3. Soft tissue swelling the forefoot. Head CT 06/28/22 10:05 IMPRESSION: 1. No acute intracranial hemorrhage or edema. 2. Cerebral atrophy and mild ventriculomegaly. No acute findings. Knee X-Ray 06/28/22 10:05 IMPRESSION: 1. No acute fracture or joint effusion. 2. Osteopenia and degenerative changes. Critical Care Time Critical Care Time: Critical Care Time: No Discharge Plan Discharge Patient Disposition: Home Clinical Impression: Contusion of foot, left Qualifiers: Encounter type: initial encounter Qualified Code(s): S90.32XA - Contusion of left foot, initial encounter Contusion of knee, left Qualifiers: Encounter type: initial encounter Qualified Code(s): S80.02XA - Contusion of left knee, initial encounter Contusion of head Qualifiers: Encounter type: initial encounter Contusion of head detail: scalp Qualified Code(s): S00.03XA - Contusion of scalp, initial encounter Fall Qualifiers: Encounter type: initial encounter Qualified Code(s): W19.XXXA - Unspecified fall, initial encounter Condition: Stable Prescriptions: New gabapentin 600 mg tablet 600 mg PO BID Qty: 60 0RF naproxen 500 mg tablet 500 mg PO Q12H PRN (Reason: pain) Qty: 20 0RF No Action baclofen 10 mg tablet 10 mg PO DAILY clonazepam 0.5 mg tablet 0.5 mg PO BID Rx Instructions: Take one half in AM & one at HS. spironolactone 50 mg tablet 50 mg PO BID folic acid 20 mg Capsule 20 mg PO DAILY propranolol 80 mg capsule,extended release 24 hr 80 mg PO DAILY Advil 200 mg Tablet 200 mg PO Q6H PRN (Reason: Pain) hydroxyzine HCl 10 mg tablet 10 mg PO BID PRN (Reason: Anxiety) bisacodyl 5 mg Tablet 10 mg PO DAILY bupropion HCl 200 mg tablet sustained-release 12 hr 200 mg PO BID escitalopram oxalate 20 mg tablet 20 mg PO DAILY melatonin 5 mg Tablet 5 mg PO BEDTIME PRN (Reason: Sleep) ZzzQuil 50 mg/30 mL Liquid 50 mg PO BEDTIME PRN (Reason: Sleep) Probiotic 15 billion cell Capsule 1 cap PO DAILY Discharge Orders: Discharge ED (Routine); Ordered 06/28/22 Ordered By: Tootie Crockett Referrals: Leatha Mean MD [Primary Care Provider] - Discharge Diet: Usual diet Discharge Activity: Increase activity as tolerated Patient Instructions: Opioid Safety, Pain Management Activity Restrictions/Additional Instructions: Take gabapentin and naproxen as prescribed. Apply ice to areas of pain. Follow-up with PCP in 4 to 5 days. Return to the ER with new or worsening symptoms. 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 [employer] Exam Detailed Documented by User: David Ramirez 06/28/22 17:56 HPI - Fall General: Chief Complaint: Fall Stated Complaint: fall Time Seen by Provider: 06/28/22 10:06 PFSH ED PFSH: Medical History Cerebral palsy Generalized anxiety disorder Major depressive disorder, recurrent, moderate Wheelchair dependence Surgical History History of ankle surgery Social History Smoking and tobacco status: never smoked Second hand smoke exposure: Yes Course Vital Signs: Vital signs: Vital Signs Temperature 97.7 F 06/28/22 10:04 Pulse Rate 102 H 06/28/22 10:04 Respiratory Rate 20 H 06/28/22 10:04 Pulse Oximetry 94 06/28/22 10:04 MDM - Fall Medical Decision Making X-ray of the foot and knee indicate significant degeneration and osteoarthritis however no acute fractures are noted. No dislocations noted. Head CT is normal. Discussed findings with patient. We discussed that likely these are contusions of these areas and she has exacerbated the arthritic pain she has. Patient reports she is out of her gabapentin which usually does help the pain some. We will refill the gabapentin today along with trying some naproxen. Recommended rest and ice. Patient should follow-up with her doctor in 4 to 5 days. Return to the ER with any new or worsening symptoms. Patient verbalized understanding and was in agreement with the treatment plan. Chart reviewed and patient discussed with midlevel. Agree with assessment and plan. Lab Data Radiology Impressions Foot X-Ray 06/28/22 10:05 IMPRESSION: 1. No acute fracture. 2. 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 3. Soft tissue swelling the forefoot. Head CT 06/28/22 10:05 IMPRESSION: 1. No acute intracranial hemorrhage or edema. 2. Cerebral atrophy and mild ventriculomegaly. No acute findings. Knee X-Ray 06/28/22 10:05 IMPRESSION: 1. No acute fracture or joint effusion. 2. Osteopenia and degenerative changes. Discharge Plan Discharge Patient Disposition: Home Clinical Impression: Contusion of foot, left Qualifiers: Encounter type: initial encounter Qualified Code(s): S90.32XA - Contusion of left foot, initial encounter Contusion of knee, left Qualifiers: Encounter type: initial encounter Qualified Code(s): S80.02XA - Contusion of left knee, initial encounter Contusion of head Qualifiers: Encounter type: initial encounter Contusion of head detail: scalp Qualified Code(s): S00.03XA - Contusion of scalp, initial encounter Fall Qualifiers: Encounter type: initial encounter Qualified Code(s): W19.XXXA - Unspecified fall, initial encounter Condition: Stable Prescriptions: New gabapentin 600 mg tablet 600 mg PO BID Qty: 60 0RF naproxen 500 mg tablet 500 mg PO Q12H PRN (Reason: pain) Qty: 20 0RF No Action baclofen 10 mg tablet 10 mg PO DAILY clonazepam 0.5 mg tablet 0.5 mg PO BID Rx Instructions: Take one half in AM & one at HS. spironolactone 50 mg tablet 50 mg PO BID folic acid 20 mg Capsule 20 mg PO DAILY propranolol 80 mg capsule,extended release 24 hr 80 mg PO DAILY Advil 200 mg Tablet 200 mg PO Q6H PRN (Reason: Pain) hydroxyzine HCl 10 mg tablet 10 mg PO BID PRN (Reason: Anxiety) bisacodyl 5 mg Tablet 10 mg PO DAILY bupropion HCl 200 mg tablet sustained-release 12 hr 200 mg PO BID escitalopram oxalate 20 mg tablet 20 mg PO DAILY melatonin 5 mg Tablet 5 mg PO BEDTIME PRN (Reason: Sleep) ZzzQuil 50 mg/30 mL Liquid 50 mg PO BEDTIME PRN (Reason: Sleep) Probiotic 15 billion cell Capsule 1 cap PO DAILY Discharge Orders: Discharge ED (Routine); Ordered 06/28/22 Ordered By: Tootie Crockett Referrals: Leatha Mena MD [Primary Care Provider] - Discharge Diet: Usual diet Discharge Activity: Increase activity as tolerated Patient Instructions: Opioid Safety, Pain Management Activity Restrictions/Additional Instructions: Take gabapentin and naproxen as prescribed. Apply ice to areas of pain. Follow-up with PCP in 4 to 5 days. Return to the ER with new or worsening symptoms. 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
== END 2022-06-28 11:38 | disposition home or self-care (01) ==
PROVIDERS: Emergency Provider Physician Assistant; PCP Family Medicine
DX: S00.03XA Contusion of scalp, initial encounter (principal); S80.02XA Contusion of left knee, initial encounter; S90.32XA Contusion of left foot, initial encounter; G80.9 Cerebral palsy, unspecified; Z77.22 Contact with and (suspected) exposure to environmental tobacco smoke (acute) (chronic); W04.XXXA Fall while being carried or supported by other persons, initial encounter
CPT/HCPCS: 70450; 73562; 73630; 99284

== ENCOUNTER 2022-09-13 01:38 | Emergency (ER) | payer MEDICARE, MEDICAID, SELFPAY ==
[2022-09-13 01:40] VITALS: BP 138/84; PULSE 101; RESP 18; TEMP 36.7; O2SAT 96
--- NOTE | 2022-09-13 02:00 | ED_ITS ---
HPI - Abdominal Pain General: Chief Complaint: Abdominal Pain Stated Complaint: SOB\RT Side Hurts Time Seen by Provider: 09/13/22 02:00 History of Present Illness: 22-year-old lady with history of cerebral palsy and wheelchair dependence presenting to the emergency department due to nausea, vomiting, diarrhea. She also notes right-sided pain and occasional shortness of breath. Symptoms began subacute yesterday without known specific provoking event. Mild to moderate intensity. Course has persisted. No other specific changes in health, exacerbating, or alleviating factors identified. Onset (ago): day(s) Location: Diffuse and RUQ Severity: moderate Radiation: none Migration to: no migration Exacerbating factors: eating Relieving factors: nothing Associated Symptoms: Reports diarrhea, nausea and vomiting; Denies hematemesis Related Data: Date of Last Menstrual Period: 07/02/19 Review of Systems General: Reports: 10 or more systems reviewed and unremarkable except in HPI and below GI: Reports: nausea, vomiting and diarrhea; Denies: hematemesis PFS ED PFSH: Medical History Cerebral palsy Generalized anxiety disorder Major depressive disorder, recurrent, moderate Wheelchair dependence Surgical History History of ankle surgery Social History Smoking and tobacco status: never smoked Second hand smoke exposure: Yes Female Reproductive History: Date of last menstrual period: 07/02/19 Physical Exam Const: COMMON NORMALS: alert GENERAL APPEARANCE: cooperative and well developed HENMT: COMMON NORMALS: normocephalic and atraumatic HEAD & SCALP: normocephalic and atraumatic Eye: COMMON NORMALS: conjunctivae normal CONJUNCTIVA: Yes conjunctivae normal SCLERA: sclerae normal Neck/C-Spine: COMMON NORMALS: supple GENERAL: Yes trachea midline Resp: COMMON NORMALS: clear to auscultation bilaterally EFFORT & INSPECTION: Yes able to speak in complete sentences AUSCULTATION: clear to auscultation bilaterally Cardio: COMMON NORMALS: regular rate and regular rhythm RATE: regular rate RHYTHM: regular rhythm GI: COMMON NORMALS: Soft to palpation PALPATION: Yes Soft to palpation, Yes Tenderness to palpation present (GI), No Guarding due to palpation present (GI) and No Rigid due to palpation Extremity: GENERAL: Yes normal exam except as noted and No edema Neuro: SENSORIUM/ORIENTATION: Yes alert and No Orientation impaired OTHER: Baseline Psych: COMMON NORMALS: mental status grossly normal and Normal thought process present THOUGHT PROCESS: Normal thought process present Course Vital Signs: Vital signs: Vital Signs Temperature 98.1 F 09/13/22 01:40 Pulse Rate 106 H 09/13/22 03:23 Respiratory Rate 16 09/13/22 03:23 Blood Pressure 115/77 09/13/22 03:23 Pulse Oximetry 93 09/13/22 03:23 Oxygen Delivery Me thod 09/13/22 01:40 MDM - Abdominal Pain Medical Decision Making 22-year-old lady with complex history presenting with side pain and GI symptoms. Patient is nontoxic in appearance. Exam as above EKG shows sinus rhythm with normal intervals, normal axis, nonspecific ST segment abnormalities, no STEMI. Labs with leukocytosis, normal hemoglobin. Metabolic panel with perhaps mild evidence of dehydration. No UTI. Rapid viral studies negative. Chest x-ray with no lobar consolidation or pneumothorax. Given persistence and severity of symptoms as well as comorbidities including limited mobility se condary to wheelchair dependence CT imaging is felt to be appropriate. CT imaging notable for no PE or pneumonia. There is gastroenteritis findings. Incidental findings discussed. Patient improved with analgesia, antiemetic. Given severity of symptoms and comorbidities antibiotics will be given for possible infectious enteritis. Most likely etiology of patient's symptoms is gastroenteritis with mild dehydration. The results of ED evaluation were discussed with the patient including prescr iptions and/or symptomatic cares (if applicable) including appropriate and responsible use, followup plan, and return precautions. The patient verbalized understanding and felt safe for discharge. Medical Records I reviewed the patient's medical records. Lab Data I reviewed the patient's lab results. 09/13/22 02:31 09/13/22 02:31 Labs/Radiology: Radiology Impressions Chest X-Ray 09/13/22 02:05 IMPRESSION: 1. Incomplete inspiration. 2. No acute findings. Chest/Abdomen/Pelvis CT 09/13/22 03:19 IMPRESSION: 1. There is no evidence of pulmonary embolus in the visualized large central and segmental pulmonary artery branches. Streak artifact and technical factors limit evaluation of the smaller peripheral branches. 2. No evidence of consolidation or pleural effusion. IMPRESSION: 1. Findings consistent with gastroenteritis. 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 3. Moderate colonic fecal stasis and diarrheal state. 4. Borderline hepatomegaly. 5. Additional non emergent findings as above. Laboratory Results WBC 15.4 10^3/uL (4.0-10.0) H 09/13/22 02:31 RBC 5.19 10^6/uL (4.1-5.3) 09/13/22 02:31 Hgb 15.2 g/dL (11.5-15.3) 09/13/22 02:31 Hct 45.5 % (37.0-47.0) 09/13/22 02:31 MCV 87.7 fl (81-99) 09/13/22 02:31 MCH 29.3 pg (28.0-34.0) 09/13/22 02:31 MCHC 33.4 g/dL (30.0-36.0) 09/13/22 02:31 RDW 13.0 % (12.1-15.1) 09/13/22 02:31 Plt Count 225 10^3/cmm (130-400) 09/13/22 02:31 MPV 9.9 fL (7.4-10.4) 09/13/22 02:31 Neut % (Auto) 89.8 % 09/13/22 02:31 Lymph % (Auto) 3.8 % 09/13/22 02:31 [place] % (Auto) 4.9 % 09/13/22 02:31 Eos % (Auto) 0.9 % 09/13/22 02:31 Baso % (Auto) 0.3 % 09/13/22 02:31 Neut # (Auto) 13.79 10^3/uL (1.8-7.7) H 09/13/22 02:31 Lymph # (Auto) 0.6 10^3/uL (0.8-4.8) L 09/13/22 02:31 [place] # (Auto) 0.8 10^3/uL (0.2-0.9) 09/13/22 02:31 Eos # (Auto) 0.1 10^3/uL (0.0-0.8) 09/13/22 02:31 Baso # (Auto) 0.0 10^3/uL (0.0-0.1) 09/13/22 02:31 Nucleated RBC % (auto) 0 % 09/13/22 02:31 Nucleated RBCs # 0.0 /100WBC 09/13/22 02:31 Sodium 138 mmol/L (136-145) 09/13/22 02:31 Potassium 4.0 mmol/L (3.5-5.1) 09/13/22 02:31 Chloride 105 mmol/L (98-107) 09/13/22 02:31 Carbon Dioxide 19 mmol/L (22-29) L 09/13/22 02:31 Anion Gap 18.0 (5-19) 09/13/22 02:31 BUN 15 mg/dL (6-20) 09/13/22 02:31 Creatinine 0.3 mg/dL (0.5-0.9) L 09/13/22 02:31 GFR Calculation 275.7 mL/min (90-130) H 09/13/22 02:31 Glucose 121 mg/dL (65-115) H 09/13/22 02:31 Calculated Osmolality 288 mOsm/kg (285-295) 09/13/22 02:31 Calcium 9.0 mg/dL (8.5-10.5) 09/13/22 02:31 Total Bilirubin 0.3 mg/dL (0.15-1.2) 09/13/22 02:31 AST 16 U/L (0-32) 09/13/22 02:31 ALT 14 U/L (0-33) 09/13/22 02:31 Alkaline Phosphatase 124 U/L (35-105) H 09/13/22 02:31 Total Protein 7.9 g/dL (6.6-8.7) 09/13/22 02:31 Albumin 4.3 g/dL (3.5-5.2) 09/13/22 02:31 Globulin 3.6 g/dL (1.3-4.6) 09/13/22 02:31 Lipase 24 U/L (13-60) 09/13/22 02:31 Urine Color Yellow (Yellow) 09/13/22 03:17 Urine Appearance Clear (CLEAR) 09/13/22 03:17 Urine pH 5 (5-7) 09/13/22 03:17 Ur Specific Winter 1.025 (1.005-1.030) 09/13/22 03:17 Urine Protein Neg (Negative) 09/13/22 03:17 Urine Glucose (UA) Norm (Normal) 09/13/22 03:17 Urine Ketones 1+ (Negative) H 09/13/22 03:17 Urine Blood Neg (Negative) 09/13/22 03:17 Urine Nitrate Negative (Negative) 09/13/22 03:17 Urine Bilirubin 1+ (Negative) H 09/13/22 03:17 Urine Urobilinogen Norm mg/dL (Negative) 09/13/22 03:17 Ur Leukocyte Esterase Negative (Negative) 09/13/22 03:17 Influenza Type A Ag negative (Negative) 09/13/22 03:27 Influenza Type B Ag negative (Negative) 09/13/22 03:27 SARS-CoV-2 Ag (Rapid) negative (Negative) 09/13/22 03:27 Discharge Plan Discharge Patient Disposition: Home Clinical Impression: Gastroenteritis, Abdominal pain Condition: Stable Prescriptions: New Reglan 10 mg tablet 10 mg PO Q6H PRN (Reason: nausea and vomiting) Qty: 20 0RF amoxicillin-pot clavulanate 875-125 mg tablet 1 tab PO BID Qty: 19 0RF No Action baclofen 10 mg tablet 10 mg PO DAILY clonazepam 0.5 mg tablet 0.5 mg PO BID Rx Instructions: Take one half in AM & one at HS. spironolactone 50 mg tablet 50 mg PO BID folic acid 20 mg Capsule 20 mg PO DAILY propranolol 80 mg capsule,extended release 24 hr 80 mg PO DAILY Advil 200 mg Tablet 200 mg PO Q6H PRN (Reason: Pain) hydroxyzine HCl 10 mg tablet 10 mg PO BID PRN (Reason: Anxiety) bisacodyl 5 mg Tablet 10 mg PO DAILY bupropion HCl 200 mg tablet sustained-release 12 hr 200 mg PO BID escitalopram oxalate 20 mg tablet 20 mg PO DAILY melatonin 5 mg Tablet 5 mg PO BEDTIME PRN (Reason: Sleep) ZzzQuil 50 mg/30 mL Liquid 50 mg PO BEDTIME PRN (Reason: Sleep) Probiotic 15 billion cell Capsule 1 cap PO DAILY gabapentin 600 mg tablet 600 mg PO BID Qty: 60 0RF naproxen 500 mg tablet 500 mg PO Q12H PRN (Reason: pain) Qty: 20 0RF Discharge Orders: Discharge ED (Routine); Ordered 09/13/22 Ordered By: Mansoor Guzmán Referrals: Leatha Mena MD [Primary Care Provider] - Discharge Diet: Advance as tolerated and Clear Liquid Discharge Activity: Increase activity as tolerated Patient Instructions: Dehydration (ED), Gastroenteritis (ED), Abdominal Pain (ED) Activity Restrictions/Additional Instructions: Thank you for visiting the emergency department. You were seen and evaluated for abdominal pain with nausea and vomiting. The most likely cause of your symptoms is gastroenteritis. Given laboratory abnormalities and your clinical history I will prescribe antibiotics. I will also prescribe antinausea medication. Please ensure that you are staying hydrated. I recommend starting with clear liquids and then advancing diet as tolerated. Please follow-up with your primary care provider. Return to the emergency department for uncontrolled symptoms or anything else that you are concerned about a feel needs emergency department evaluation. Coding Level of Care Code ED [employer] for Atif Woodard
--- NOTE | 2022-09-13 02:05 | XRR_ITS ---
PROCEDURE INFORMATION: Exam: XR Chest Exam date and time: 09/13/2022 2:12 AM Age: 22 years old Clinical indication: Shortness of breath; Prior surgery; Surgery type: Ta sujit; Patient HX: C/O SOB TECHNIQUE: Imaging protocol: Radiologic exam of the chest. Views: 1 view. COMPARISON: CR XR chest 1V portable [id number] 04/02/2020 8:51 PM FINDINGS: Lungs: There is incomplete lung expansion and crowding of the vascular markings. There is no evidence of focal pulmonary consolidation. Pleural spaces: No pleural effusion or pneumothorax. Heart/Mediastinum: Normal in size. Bones/joints: There are bilateral Ta rods throughout the thoracic spine, extending caudally into the lumbar spine. XR/XR chest 1V portable [id number] IMPRESSION: 1. Incomplete inspiration. 2. No acute findings.
[2022-09-13] MEDS: ketorolac 30 mg/mL INJ 15 MG IVP (02:34)
[2022-09-13] MEDS: ondansetron 2 mg/ML SDV 2 mL 4 MG IVP (02:34)
[2022-09-13] MEDS: acetaminophen 500 mg Tablet 1000 MG PO (02:34)
[2022-09-13 02:35] LABS: Basophils % 0.3 %; Eosinophils # 0.1 10^3/uL (0.0-0.8); Eosinophils % 0.9 %; Hematocrit 45.5 % (37.0-47.0); Hemoglobin 15.2 g/dL (11.5-15.3); Lymphocytes # 0.6 10^3/uL (0.8-4.8); Lymphocytes % 3.8 %; Mean Corpuscular HGB Conc 33.4 g/dL (30.0-36.0); Mean Corpuscular Hemoglobin 29.3 pg (28.0-34.0); Mean Corpuscular Volume 87.7 fl (81-99); Mean Platelet Volume 9.9 fL (7.4-10.4); Monocytes # 0.8 10^3/uL (0.2-0.9); Monocytes % 4.9 %; Neutrophils # 13.79 10^3/uL (1.8-7.7); Neutrophils % 89.8 %; Nucleated Red Blood Cells % 0 %; Platelet Count 225 10^3/cmm (130-400); Red Blood Count 5.19 10^6/uL (4.1-5.3); White Blood Count 15.4 10^3/uL (4.0-10.0)
--- NOTE | 2022-09-13 02:39 | ECG_ITS ---
[facility] Test Date: 2022-09-13 Pat Name: Maria Esther Rust Department: Room: Gender: Female Clinical Documentation Clerk: : 2000 Requested By: Mansoor Guzmán Order Number: [id number] Milly MD: Maya Mckeon M.D. Measurements Intervals [place] Rate: 102 P: 45 OK: 123 QRS: 53 QRSD: 91 T: -12 QT: 326 QTc: 425 Interpretive Statements SINUS TACHYCARDIA NONSPECIFIC T-WAVE ABNORMALITY Compared to ECG 04/02/2020 23:34:59 No significant changes Electronically Signed On 09-13-2022 16:47:59 CONTRACTS MANAGER by Maya Mckeon M.D. [id number]
[2022-09-13 02:52] LABS: Alanine Aminotransferase 14 U/L (0-33); Albumin Level 4.3 g/dL (3.5-5.2); Alkaline Phosphatase 124 U/L (35-105); Aspartate Amino Transferase 16 U/L (0-32); Blood Urea Nitrogen 15 mg/dL (6-20); Carbon Dioxide 19 mmol/L (22-29); Chloride 105 mmol/L (98-107); Globulin 3.6 g/dL (1.3-4.6); Glomerular Filtration Rate 275.7 mL/min (90-130); Glucose 121 mg/dL (65-115); Lipase 24 U/L (13-60); Osmolality Calculated 288 mOsm/kg (285-295); Sodium 138 mmol/L (136-145); Total Bilirubin 0.3 mg/dL (0.15-1.2); Total Protein 7.9 g/dL (6.6-8.7)
--- NOTE | 2022-09-13 03:19 | CTR_ITS ---
PROCEDURE INFORMATION: Exam: CTA Chest With Contrast Exam date and time: 09/13/2022 3:53 AM Age: 22 years old Clinical indication: Pain and abnormal findings; Abnormal lab test; Nausea and vomiting; Other: N/a; Shortness of breath; Right-sided; Prior surgery; Surgery type: Ta sujit. Arm fixation; Patient HX: RT side chest pain with SOB. Persistent n/v with diarrhea. Elevated wbc. ; Additional info: Cp, SOB, recurrent n/v TECHNIQUE: Imaging protocol: Computed tomographic angiography of the chest with contrast. 3D rendering (Not supervised by radiologist): MIP and/or 3D reconstructed images were created by the technologist. Radiation optimization: All CT scans at this facility use at least one of these dose optimization techniques: automated exposure control; mA and/or kV adjustment per patient size (includes targeted exams where dose is matched to clinical indication); or iterative reconstruction. Contrast material: OMNI 350; Contrast volume: 100 ml; Contrast route: INTRAVENOUS (IV); COMPARISON: CR (CHEST, ) 09/13/2022 2:12 AM RADIATION DOSE METRICS: Total DLP (mGy-cm): 1536.5 FINDINGS: Limitations: Streak artifact from Ta rods limit evaluation. Pulmonary arteries: There is no evidence of pulmonary embolus in the large central and segmental pulmonary arteries. Evaluation of the smaller peripheral branches is limited by streak artifact and technical factors. Aorta: There is no evidence of thoracic aortic aneurysm or dissection. Lungs: There are mild bilateral dependent atelectatic changes of the lower lobes. There is no evidence of focal pulmonary consolidation or ground-glass opacities. Pleural spaces: Unremarkable. No pneumothorax. No pleural effusion. Heart: The heart is normal in size. There are no pericardial fluid collections. Lymph nodes: No enlarged mediastinal or hilar lymph nodes are seen. Bones/joints: There are Ta rods in stable position throughout the thoracic spine extending into the lumbar spine. Soft tissues: Unremarkable. PROCEDURE INFORMATION: Exam: CT Abdomen And Pelvis With Contrast Exam date and time: 09/13/2022 3:53 AM Age: 22 years old Clinical indication: Pain and abnormal findings; Abnormal lab test; Nausea and vomiting; Other: N/a; Shortness of breath; Right-sided; Prior surgery; Surgery type: Ta sujit. Arm fixation; Patient HX: RT side chest pain with SOB. Persistent n/v with diarrhea. Elevated wbc. ; Additional info: Cp, SOB, recurrent n/v TECHNIQUE: Imaging protocol: Computed tomography of the abdomen and pelvis with contrast. Radiation optimization: All CT scans at this facility use at least one of these dose optimization techniques: automated exposure control; mA and/or kV adjustment per patient size (includes targeted exams where dose is matched to clinical indication); or iterative reconstruction. Contrast material: OMNI 350; Contrast volume: 100 ml; Contrast route: INTRAVENOUS (IV); COMPARISON: CT abdomen pelvis w con* [id number] 04/21/2022 1:48 PM RADIATION DOSE METRICS: Total DLP (mGy-cm): 1536.5 FINDINGS: Limitations: Streak artifact from Ta rods limit evaluation. Lungs: The visualized lung horowitz show mild bibasilar atelectasis. Liver: The liver is mildly enlarged, measuring 18.3 cm in length. There are no enhancing liver lesions. Gallbladder and bile ducts: No calcified stones. No ductal dilation. Pancreas: The pancreas is normal. Spleen: The spleen is normal in size and density. Adrenal glands: The adrenal glands are normal. Kidneys and ureters: There is no hydronephrosis. No renal or obstructing ureteral calculi. Stomach and bowel: There is thickening of the gastric wall that may be secondary to gastritis versus underdistension. There are multiple, small bowel loops with thickened rojo consistent with enteritis (axial series 8, image 47; coronal series 24, image 14).There is moderate fecal stasis from the mid transverse colon through the rectosigmoid. Multiple fluid-filled loops of bowel and fluid in the colon are consistent with a diarrheal state. Colonic interposition between the liver and the right hemidiaphragm without obstruction is noted, consistent with Chilaiditi sign. Appendix: No evidence of appendicitis. Intraperitoneal space: No free air. No significant fluid collection. Vasculature: There is no abdominal aortic aneurysm. Lymph nodes: No enlarged retroperitoneal or mesenteric lymph nodes. Urinary bladder: The bladder is mostly decompressed and not fully evaluated. Reproductive: Unremarkable as visualized. Bones/joints: There are Ta rods in stable position extending throughout the thoracic and lumbar spine into the sacrum and upper iliac bones. These appear in stable position. Soft tissues: Normal. CT/CT angio chest w abd pel w con IMPRESSION: 1. There is no evidence of pulmonary embolus in the visualized large central and segmental pulmonary artery branches. Streak artifact and technical factors limit evaluation of the smaller peripheral branches. 2. No evidence of consolidation or pleural effusion. IMPRESSION: 1. Findings consistent with gastroenteritis. 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 3. Moderate colonic fecal stasis and diarrheal state. 4. Borderline hepatomegaly. 5. Additional non emergent findings as above.
[2022-09-13 03:23] VITALS: BP 115/77; PULSE 106; RESP 16; O2SAT 93
[2022-09-13] MEDS: metoclopramide 5 mg/mL SDV 2 mL 10 MG IVP (03:24)
[2022-09-13 03:31] LABS: Add Urine Microscopic? NO; Charge for UA Resulting for Rev
[2022-09-13 03:44] LABS: Bilirubin Urine 1+ (Negative); Blood Urine Neg (Negative); Glucose Urine UA Norm (Normal); Ketones Urine 1+ (Negative); Leukocyte Esterase Urine Negative (Negative); Nitrate Urine Negative (Negative); Protein Urine Neg (Negative); Specific Gravity, Urine 1.025 (1.005-1.030); Urine Appearance Clear (CLEAR); Urine Color Yellow (Yellow); Urobilinogen Urine Norm (Negative); pH Urine 5 (5-7)
[2022-09-13 03:49] LABS: Influenza A by IFA negative (Negative); Influenza B by IFA negative (Negative); SARS Covid-2 Antigen negative (Negative)
[2022-09-13] MEDS: iohexol 350 mg/mL 500 mL Btl (per mL) IV (04:01)
[2022-09-13] MEDS: CLONazepam 0.5 mg Tablet PO (04:49)
[2022-09-13] MEDS: amoxicillin-clav 875-125 mg Tablet 1 TAB PO (05:45)
== END 2022-09-13 05:56 | disposition home or self-care (01) ==
PROVIDERS: Emergency Provider Emergency Medicine; PCP Family Medicine
DX: K52.9 Noninfective gastroenteritis and colitis, unspecified (principal); Z20.822 Contact with and (suspected) exposure to COVID-19; G80.9 Cerebral palsy, unspecified; Z77.22 Contact with and (suspected) exposure to environmental tobacco smoke (acute) (chronic)
CPT/HCPCS: 71045; 71275; 74177; 80053; 81003; 83690; 85025; 87426; 87804; 93005; 96374; 96375; 99285; J1885; J2405; J2765; Q9967

== ENCOUNTER 2022-12-03 17:19 | Emergency (ER) | payer MEDICARE, MEDICAID, SELFPAY ==
[2022-12-03 17:29] VITALS: BP 114/74; PULSE 94; RESP 18; TEMP 36.1; O2SAT 97; BMI 32.8
--- NOTE | 2022-12-03 18:34 | ED_ITS ---
HPI - Neck Pain/Injury General: Chief Complaint: Neck Pain/Injury Stated Complaint: reaction to botox Time Seen by Provider: 12/03/22 18:26 Source: patient Mode of arrival: ambulatory Limitations: no limitations History of Present Illness: 22-year-old female has a history cerebral palsy is wheelchair-bound states she has chronic neck pain she had a Botox injection in her neck last week states that she had some numbness along with some weird feelings with increased pain she is wondering if we could reverse the Botox states she is also had vomiting over the last 2 days seen in urgent care told it was likely a virus she denies any abdominal pain denies any fever she rates her neck pain currently 8 3 out of 10 its not severe in nature Associated symptoms: Reports nausea; Denies headache(s) Review of Systems Const: Denies: fever(s), chills, body aches or change in appetite Eyes: Denies: blurry vision or eye discomfort ENMT: Denies: throat pain or dental pain Card: Denies: chest pain Resp: Denies: dyspnea GI: Reports: nausea and vomiting : Denies: dysuria Musc: Reports: neck pain Skin/Breast: Denies: rash Neuro: Denies: headache(s) Psych: Denies: depression Alan/Lymph: Denies: easy bruising All/Imm: Denies: urticaria PFSH ED PFSH: Medical History Cerebral palsy Generalized anxiety disorder Major depressive disorder, recurrent, moderate Wheelchair dependence Surgical History History of ankle surgery Social History Smoking and tobacco status: never smoked Second hand smoke exposure: Yes Physical Exam Const: COMMON NORMALS: no acute distress, patient oriented x3 and healthy appearing HENMT: COMMON NORMALS: normocephalic and atraumatic HEAD & SCALP: normocephalic and atraumatic Eye: COMMON NORMALS: Equal, round and reactive pupils present and EOMs intact bilaterally PUPIL: Yes Equal, round and reactive pupils present Neck/C-Spine: COMMON NORMALS: full ROM and supple Chest: COMMONS NORMALS: normal inspection of the chest and normal palpation of entire chest wall Resp: COMMON NORMALS: normal respiratory effort, No retractions, No use of accessory muscles and clear to auscultation bilaterally AUSCULTATION: clear to auscultation bilaterally Cardio: COMMON NORMALS: regular rate, regular rhythm and No murmurs present (Cardio) RATE: regular rate RHYTHM: regular rhythm GI: COMMON NORMALS: Normal to inspection, nondistended, normoactive bowel sounds present, Soft to palpation, non-tender and no masses PALPATION: Yes Soft to palpation Extremity: COMMON NORMALS: normal to inspection and full ROM Neuro: COMMON NORMALS: patient oriented x3, moves all extremities and no focal motor deficits Psych: COMMON NORMALS: mental status grossly normal, Normal thought process present and cooperative THOUGHT PROCESS: Normal thought process present Skin: COMMON NORMALS: no rashes or lesions noted and no wounds GENERAL SKIN EXAM: no rashes or lesions noted Course Vital Signs: Vital signs: Vital Signs Temperature 96.9 F L 12/03/22 17:29 Pulse Rate 92 12/03/22 20:25 Respiratory Rate 16 12/03/22 20:25 Blood Pressure 114/74 12/03/22 17:29 Pulse Oximetry 96 12/03/22 20:25 Oxygen Delivery Me thod 12/03/22 17:29 MDM - Neck Pain/Injury Medical Decision Making Patient presents with neck pain is chronic in nature her exam here is benign blood works normal she feels improved she is stable for discharge she is to follow-up with her PCP and return if worsening. Lab Data 12/03/22 19:23 12/03/22 19:23 Laboratory Results WBC 10.1 10^3/uL (4.0-10.0) H 12/03/22 19: RBC 5.21 10^6/uL (4.1-5.3) 12/03/22 19: Hgb 15.0 g/dL (11.5-15.3) 12/03/22 19: Hct 45.6 % (37.0-47.0) 12/03/22 19: MCV 87.5 fl (81-99) 12/03/22 19: MCH 28.8 pg (28.0-34.0) 12/03/22 19: MCHC 32.9 g/dL (30.0-36.0) 12/03/22 19: RDW 13.7 % (12.1-15.1) 12/03/22 19: Plt Count 263 10^3/cmm (130-400) 12/03/22 19: MPV 10.0 fL (7.4-10.4) 12/03/22 19: Neut % (Auto) 71.0 % 12/03/22 19: Lymph % (Auto) 20.9 % 12/03/22 19: [place] % (Auto) 6.6 % 12/03/22 19:23 Eos % (Auto) 0.8 % 12/03/22 19:23 Baso % (Auto) 0.4 % 12/03/22 19: Neut # (Auto) 7.19 10^3/uL (1.8-7.7) 12/03/22 19: Lymph # (Auto) 2.1 10^3/uL (0.8-4.8) 12/03/22 19: [place] # (Auto) 0.7 10^3/uL (0.2-0.9) 12/03/22 19:23 Eos # (Auto) 0.1 10^3/uL (0.0-0.8) 12/03/22 19: Baso # (Auto) 0.0 10^3/uL (0.0-0.1) 12/03/22 19: Nucleated RBC % (auto) 0 % 12/03/22 19: Nucleated RBCs # 0.0 /100WBC 12/03/22 19: Sodium 136 mmol/L (136-145) 12/03/22 19: Potassium 4.3 mmol/L (3.5-5.1) 12/03/22 19: Chloride 102 mmol/L (98-107) 12/03/22 19: Carbon Dioxide 20 mmol/L (22-29) L 12/03/22 19:23 Anion Gap 18.3 (5-19) 12/03/22 19:23 BUN 12 mg/dL (6-20) 12/03/22 19:23 Creatinine 0.4 mg/dL (0.5-0.9) L 12/03/22 19:23 GFR Calculation 197.8 mL/min (90-130) H 12/03/22 19:23 Glucose 85 mg/dL (65-115) 12/03/22 19:23 Calculated Osmolality 281 mOsm/kg (285-295) L 12/03/22 19: Calcium 9.5 mg/dL (8.5-10.5) 12/03/22 19: Total Bilirubin 0.5 mg/dL (0.15-1.2) 12/03/22 19: AST 20 U/L (0-32) 12/03/22 19: ALT 17 U/L (0-33) 12/03/22 19: Alkaline Phosphatase 91 U/L (35-105) 12/03/22 19: Total Protein 7.8 g/dL (6.6-8.7) 12/03/22: Albumin 3.9 g/dL (3.5-5.2) 12/03/22 19: Globulin 3.9 g/dL (1.3-4.6) 12/03/22 19: Discharge Plan Discharge Patient Disposition: Home Clinical Impression: Neck pain Condition: Stable Prescriptions: New Naprosyn 500 mg tablet 500 mg PO BID PRN (Reason: pain) Qty: 20 0RF ondansetron 4 mg tablet,disintegrating 4 mg PO Q6H PRN (Reason: nausea and vomiting) Qty: 14 0RF No Action baclofen 10 mg tablet 10 mg PO DAILY clonazepam 0.5 mg tablet 0.5 mg PO BID Rx Instructions: Take one half in AM & one at HS. spironolactone 50 mg tablet 50 mg PO BID folic acid 20 mg Capsule 20 mg PO DAILY propranolol 80 mg capsule,extended release 24 hr 80 mg PO DAILY Advil 200 mg Tablet 200 mg PO Q6H PRN (Reason: Pain) hydroxyzine HCl 10 mg tablet 10 mg PO BID PRN (Reason: Anxiety) bisacodyl 5 mg Tablet 10 mg PO DAILY bupropion HCl 200 mg tablet sustained-release 12 hr 200 mg PO BID escitalopram oxalate 20 mg tablet 20 mg PO DAILY melatonin 5 mg Tablet 5 mg PO BEDTIME PRN (Reason: Sleep) ZzzQuil 50 mg/30 mL Liquid 50 mg PO BEDTIME PRN (Reason: Sleep) Probiotic 15 billion cell Capsule 1 cap PO DAILY gabapentin 600 mg tablet 600 mg PO BID Qty: 60 0RF naproxen 500 mg tablet 500 mg PO Q12H PRN (Reason: pain) Qty: 20 0RF Reglan 10 mg tablet 10 mg PO Q6H PRN (Reason: nausea and vomiting) Qty: 20 0RF amoxicillin-pot clavulanate 875-125 mg tablet 1 tab PO BID Qty: 19 0RF Discharge Orders: Discharge ED (Routine); Ordered 12/03/22 Ordered By: Radha Das Referrals: Carolyn Rosales, ORGANIC SECTION TECHNICAL LEAD [Primary Care Provider] - 1-3 days Discharge Diet: Advance as tolerated Discharge Activity: Resume usual activity Patient Instructions: Neck Pain (ED) Coding Level of Care Code ED Outdoor Studies Director for Atif Woodard
[2022-12-03] MEDS: HYDROmorphone 1 mg/mL INJ 1 mL 0.5 MG IVP (19:30)
[2022-12-03] MEDS: ondansetron 2 mg/ML SDV 2 mL 4 MG IVP (19:30)
[2022-12-03 19:38] VITALS: RESP 18
[2022-12-03 19:53] LABS: Basophils % 0.4 %; Eosinophils # 0.1 10^3/uL (0.0-0.8); Eosinophils % 0.8 %; Hematocrit 45.6 % (37.0-47.0); Lymphocytes # 2.1 10^3/uL (0.8-4.8); Lymphocytes % 20.9 %; Mean Corpuscular HGB Conc 32.9 g/dL (30.0-36.0); Mean Corpuscular Hemoglobin 28.8 pg (28.0-34.0); Mean Corpuscular Volume 87.5 fl (81-99); Monocytes # 0.7 10^3/uL (0.2-0.9); Monocytes % 6.6 %; Neutrophils # 7.19 10^3/uL (1.8-7.7); Nucleated Red Blood Cells % 0 %; Platelet Count 263 10^3/cmm (130-400); Red Blood Count 5.21 10^6/uL (4.1-5.3); Red Cell Distribution Width 13.7 % (12.1-15.1); White Blood Count 10.1 10^3/uL (4.0-10.0)
[2022-12-03 20:13] LABS: Alanine Aminotransferase 17 U/L (0-33); Albumin Level 3.9 g/dL (3.5-5.2); Alkaline Phosphatase 91 U/L (35-105); Aspartate Amino Transferase 20 U/L (0-32); Blood Urea Nitrogen 12 mg/dL (6-20); Calcium 9.5 mg/dL (8.5-10.5); Carbon Dioxide 20 mmol/L (22-29); Chloride 102 mmol/L (98-107); Globulin 3.9 g/dL (1.3-4.6); Glomerular Filtration Rate 197.8 mL/min (90-130); Glucose 85 mg/dL (65-115); Osmolality Calculated 281 mOsm/kg (285-295); Sodium 136 mmol/L (136-145); Total Bilirubin 0.5 mg/dL (0.15-1.2); Total Protein 7.8 g/dL (6.6-8.7)
[2022-12-03 20:17] LABS: Anion Gap 18.3 (5-19); Potassium 4.3 mmol/L (3.5-5.1)
[2022-12-03 20:25] VITALS: PULSE 92; RESP 16; O2SAT 96
== END 2022-12-03 20:26 | disposition home or self-care (01) ==
PROVIDERS: Emergency Provider Emergency Medicine; PCP Nurse Practitioner
DX: M54.2 Cervicalgia (principal); G80.9 Cerebral palsy, unspecified; Z77.22 Contact with and (suspected) exposure to environmental tobacco smoke (acute) (chronic)
CPT/HCPCS: 80053; 85025; 96374; 96375; 99284; J1170; J2405

== ENCOUNTER 2023-04-16 21:04 | Emergency (ER) | payer MEDICARE, MEDICAID, SELFPAY ==
[2023-04-16 21:18] VITALS: BP 120/67; PULSE 137; RESP 18; TEMP 37.3; O2SAT 96; BMI 34.5
--- NOTE | 2023-04-16 21:41 | XRR_ITS ---
PROCEDURE INFORMATION: Exam: XR Chest Exam date and time: 04/16/2023 9:50 PM Age: 23 years old Clinical indication: Shortness of breath; Prior surgery; Surgery date: 6+ months; Surgery type: Back TECHNIQUE: Imaging protocol: Radiologic exam of the chest. Views: 1 view. COMPARISON: CR XR chest 1V portable [id number] 09/13/2022 2:12 AM FINDINGS: Lungs: Visualized portions of the lungs are clear. Pleural spaces: Unremarkable. No pleural effusion. No pneumothorax. Heart/Mediastinum: Heart is within normal limits of size. Bones/joints: Posterior spinal fusion with metallic rods and pedicle screws at multiple levels again identified not significantly changed. XR/XR chest 1V portable [id number] IMPRESSION: No acute infiltrate.
--- NOTE | 2023-04-16 22:04 | ECG_ITS ---
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 Measurements Intervals [place] Rate: 137 P: 48 MO: 136 QRS: 49 QRSD: 92 T: -6 QT: 330 QTc: 499 Interpretive Statements SINUS TACHYCARDIA NONSPECIFIC T-WAVE ABNORMALITY Compared to ECG 09/13/2022 02:39:00 No significant changes Electronically Signed On 04-17-2023 7:58:06 CDT by Trey Kc M.D. [id number]
--- NOTE | 2023-04-16 22:18 | ED_ITS ---
HPI - SOB/Dyspnea General: Chief Complaint: Shortness of Breath/Dyspnea Stated Complaint: sob Time Seen by Provider: 04/16/23 21:32 History of Present Illness: HPI Narrative: Presents to the ER with complaints of worsening breath. Patient is also complaining of stomach cramping and right upper quadrant abdominal pain. Patient says the started about 8 AM this morning is only gotten worse throughout the day. She thought at first it was just her normal cramps and spasms she gets from being in the wheelchair so long when he did go away and he started getting worse she realized it was something different. Patient has been trying to push fluids all day long but states it hurts to drink hurts to swallow and when hits her stomach and hurts there. Patient also been tachycardic in the 130s and 140s today. She says when she went to her doctor within the last week she was up in the 120s and this is unusual for her. Review of Systems General: Reports: 10 or more systems reviewed and unremarkable except in HPI and below PFSH ED PFSH: Medical History Cerebral palsy Generalized anxiety disorder Major depressive disorder, recurrent, moderate Wheelchair dependence Surgical History History of ankle surgery Family History Denies family history of Colon cancer Ovarian cancer Diabetes Heart disease Hypercholesteremia Breast cancer Hypertension Uterine cancer Thyroid disease Stroke Physical Exam Const: COMMON NORMALS: no acute distress, average body habitus, patient oriented x3, no limitations, healthy appearing, alert and well nourished HENMT: COMMON NORMALS: normocephalic, atraumatic, hearing grossly normal bilaterally, external ears normal, Normal external nose present and moist oral mucous membranes HEAD & SCALP: normocephalic and atraumatic NOSE: Normal external nose present EXTERNAL EAR: Yes external ears normal Eye: COMMON NORMALS: Equal, round and reactive pupils present, EOMs intact bilaterally, conjunctivae normal and no scleral icterus CONJUNCTIVA: Yes conjunctivae normal PUPIL: Yes Equal, round and reactive pupils present Neck/C-Spine: COMMON NORMALS: full ROM, no lymphadenopathy, no meningeal signs, no JVD and Thyroid normal THYROID: Thyroid normal Chest: COMMONS NORMALS: normal inspection of the chest Resp: OTHER: Lungs decreased breath sounds bilaterally clear with no obvious rales rhonchi or wheezes. Cardio: COMMON NORMALS: no JVD, regular rhythm, S1 normal heart sound present, S2 normal heart sound present, No gallops present (Cardio), No clicks present (Cardio), No murmurs present (Cardio) and No rub (Cardio); negative for regular rate (Tachycardic) RATE: abnormal rate (Tachycardic) RHYTHM: regular rhythm HEART SOUNDS: S1 normal heart sound present and S2 normal heart sound present GI: OTHER: Tender to palpate diffusely but worse in the right upper quadrant and epigastric area. No rebound guarding or renomegaly noted. Neuro: COMMON NORMALS: patient oriented x3 SENSORIUM/ORIENTATION: Yes alert MENINGEAL SIGNS: Yes no meningeal signs Course Vital Signs: Vital signs: Vital Signs Temperature 99.2 F 04/17/23 02:53 Pulse Rate 105 H 04/17/23 02:53 Respiratory Rate 16 04/17/23 02:53 Blood Pressure 126/83 04/17/23 02:53 Pulse Oximetry 97 04/17/23 02:53 MDM - SOB/Dyspnea Medical Decision Making Work-up is in progress awaiting lab work to come back. Patient be transferred over to the incoming physician for further work-up and treatment. Differential Diagnosis Unlikely acute exacerbation of chronic obstructive airways disease, congestive heart failure, community acquired pneumonia, asthma with exacerbation or pulm onary embolism Medical Records I reviewed the patient's medical records. Lab Data I reviewed the patient's lab results. 04/16/23 22:18 04/16/23 23:00 Labs/Radiology: Radiology Impressions Chest X-Ray 04/16/23 21:41 IMPRESSION: No acute infiltrate. Abdomen/Pelvis CT 04/17/23 00:00 IMPRESSION: 1. Liver appears slightly larger than on 04/21/2022 2. Findings of constipation 3. Increased small-bowel gas without signs of obstruction 4. Findings of colonic interposition not significantly changed from previous examination. 5. Stable postsurgical changes in the lumbar spine. Laboratory Results WBC 9.3 10^3/uL (4.0-10.0) 04/16/23 22:18 RBC 4.63 10^6/uL (4.1-5.3) 04/16/23 22:18 Hgb 13.3 g/dL (11.5-15.3) 04/16/23 22:18 Hct 40.5 % (37.0-47.0) 04/16/23 22:18 MCV 87.5 fl (81-99) 04/16/23 22:18 MCH 28.7 pg (28.0-34.0) 04/16/23 22:18 MCHC 32.8 g/dL (30.0-36.0) 04/16/23 22:18 RDW 12.8 % (12.1-15.1) 04/16/23 22:18 Plt Count 207 10^3/cmm (130-400) 04/16/23 22:18 MPV 10.4 fL (7.4-10.4) 04/16/23 22:18 Neut % (Auto) 64.5 % 04/16/23 22:18 Lymph % (Auto) 23.5 % 04/16/23 22:18 [place] % (Auto) 10.1 % 04/16/23 22:18 Eos % (Auto) 1.6 % 04/16/23 22:18 Baso % (Auto) 0.2 % 04/16/23:18 Neut # (Auto) 5.97 10^3/uL (1.8-7.7) 04/16/23 22:18 Lymph # (Auto) 2.2 10^3/uL (0.8-4.8) 04/16/23 22:18 [place] # (Auto) 0.9 10^3/uL (0.2-0.9) 04/16/23 22:18 Eos # (Auto) 0.2 10^3/uL (0.0-0.8) 04/16/23 22:18 Baso # (Auto) 0.0 10^3/uL (0.0-0.1) 04/16/23:18 Nucleated RBC % (auto) 0 % 04/16/23:18 Nucleated RBCs # 0.0 /100WBC 04/16/23 22:18 Sodium 139 mmol/L (136-145) 04/16/23 23:00 Potassium 3.8 mmol/L (3.5-5.1) 04/16/23 23:00 Chloride 104 mmol/L (98-107) 04/16/23 23:00 Carbon Dioxide 24 mmol/L (22-29) 04/16/23 23:00 Anion Gap 14.8 (5-19) 04/16/23 23:00 BUN 7 mg/dL (6-20) 04/16/23 23:00 Creatinine 0.5 mg/dL (0.5-0.9) 04/16/23 23:00 GFR Calculation 151.6 mL/min (90-130) H 04/16/23 23:00 Glucose 92 mg/dL (65-115) 04/16/23 23:00 Calculated Osmolality 286 mOsm/kg (285-295) 04/16/23 23:00 Calcium 8.9 mg/dL (8.5-10.5) 04/16/23 23:00 Magnesium 2.2 mg/dL (1.7-2.3) 04/16/23 23:00 Total Bilirubin 0.3 mg/dL (0.15-1.2) 04/16/23 23:00 AST 12 U/L (0-32) 04/16/23 23:00 ALT 13 U/L (0-33) 04/16/23 23:00 Alkaline Phosphatase 102 U/L (35-105) 04/16/23 23:00 Troponin T Baseline 8 ng/L (0-10) 04/16/23 23:00 Troponin T 120 Minute 7.83 ng/L (0-10) 04/17/23 00:35 Delta Troponin T -0.17 ABS# (0-10) L 04/17/23 00:35 Total Protein 7.4 g/dL (6.6-8.7) 04/16/23 23:00 Albumin 4.1 g/dL (3.5-5.2) 04/16/23 23:00 Globulin 3.3 g/dL (1.3-4.6) 04/16/23 23:00 Lipase 32 U/L (13-60) 04/16/23 23:00 TSH 2.64 uIU/mL (0.27-4.20) 04/16/23 23:00 EKG Data EKG 1: I personally reviewed and interpreted this EKG as follows: EKG Interpretation Date: 04/16/23 EKG interpretation time: 21:27 Prior EKG tracings: not available for review Interpretation: EKG shows ventricular rate 131 bpm, GA interval 120, QRS duration 96, QTc of 410, sinus tachycardia with nonspecific T wave abnormalities. Discharge Plan Discharge Patient Disposition: Home Clinical Impression: Abdominal pain, Constipation, Atrial tachycardia Condition: Stable Prescriptions: New Miralax 17 gram powder in packet 17 g PO DAILY 4 Days Qty: 30 0RF No Action baclofen 10 mg tablet 10 mg PO DAILY clonazepam 0.5 mg tablet 0.5 mg PO BID Rx Instructions: Take one half in AM & one at HS. spironolactone 50 mg tablet 50 mg PO BID levonorgestrel-ethinyl estrad [Aviane] 0.1-20 mg-mcg tablet 1 tab PO DAILY Qty: 28 12RF folic acid 20 mg Capsule 20 mg PO DAILY propranolol 80 mg capsule,extended release 24 hr 80 mg PO DAILY Advil 200 mg Tablet 200 mg PO Q6H PRN (Reason: Pain) hydroxyzine HCl 10 mg tablet 10 mg PO BID PRN (Reason: Anxiety) bisacodyl 5 mg Tablet 10 mg PO DAILY escitalopram oxalate 20 mg tablet 20 mg PO DAILY melatonin 5 mg Tablet 5 mg PO BEDTIME PRN (Reason: Sleep) ZzzQuil 50 mg/30 mL Liquid 50 mg PO BEDTIME PRN (Reason: Sleep) Probiotic 15 billion cell Capsule 1 cap PO DAILY gabapentin 600 mg tablet 600 mg PO BID Qty: 60 0RF Reglan 10 mg tablet 10 mg PO Q6H PRN (Reason: nausea and vomiting) Qty: 20 0RF Naprosyn 500 mg tablet 500 mg PO BID PRN (Reason: pain) Qty: 20 0RF ondansetron 4 mg tablet,disintegrating 4 mg PO Q6H PRN (Reason: nausea and vomiting) Qty: 14 0RF Discharge Orders: Discharge ED (Routine); Ordered 04/17/23 Ordered By: Jayna Magallon Referrals: Carolyn Rosales FNP [Primary Care Provider] - Patient Instructions: Abdominal Pain (ED), Opioid Safety, Pain Management Coding Level of Care Code ED Parking Station Attendant for Cruzg Yamilet
[2023-04-16] MEDS: sodium chloride 0.9% 1,000 ML 999 ML IV (22:19)
[2023-04-16 22:22] LABS: Basophils % 0.2 %; Eosinophils # 0.2 10^3/uL (0.0-0.8); Eosinophils % 1.6 %; Hematocrit 40.5 % (37.0-47.0); Hemoglobin 13.3 g/dL (11.5-15.3); Lymphocytes # 2.2 10^3/uL (0.8-4.8); Lymphocytes % 23.5 %; Mean Corpuscular HGB Conc 32.8 g/dL (30.0-36.0); Mean Corpuscular Hemoglobin 28.7 pg (28.0-34.0); Mean Corpuscular Volume 87.5 fl (81-99); Mean Platelet Volume 10.4 fL (7.4-10.4); Monocytes # 0.9 10^3/uL (0.2-0.9); Monocytes % 10.1 %; Neutrophils # 5.97 10^3/uL (1.8-7.7); Neutrophils % 64.5 %; Nucleated Red Blood Cells % 0 %; Platelet Count 207 10^3/cmm (130-400); Red Blood Count 4.63 10^6/uL (4.1-5.3); Red Cell Distribution Width 12.8 % (12.1-15.1); White Blood Count 9.3 10^3/uL (4.0-10.0)
[2023-04-16] MEDS: ketorolac 60 mg/2 mL INJ 30 MG IVP (23:38)
[2023-04-16 23:40] VITALS: BP 125/101; PULSE 111; RESP 16; O2SAT 98
[2023-04-16 23:40] LABS: Troponin(5th) Baseline 8 ng/L (0-10)
--- NOTE | 2023-04-16 23:43 | ECG_ITS ---
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 Measurements Intervals [place] Rate: 131 P: 44 [place]: 120 QRS: 54 QRSD: 96 T: -20 QT: 333 QTc: 493 Interpretive Statements SINUS TACHYCARDIA NONSPECIFIC T-WAVE ABNORMALITY Compared to ECG 09/13/2022 02:39:00 No significant changes Electronically Signed On 04-17-2023 7:59:45 CDT by Trey Kc M.D. [id number]
[2023-04-16 23:48] LABS: Alanine Aminotransferase 13 U/L (0-33); Albumin Level 4.1 g/dL (3.5-5.2); Alkaline Phosphatase 102 U/L (35-105); Anion Gap 14.8 (5-19); Aspartate Amino Transferase 12 U/L (0-32); Blood Urea Nitrogen 7 mg/dL (6-20); Calcium 8.9 mg/dL (8.5-10.5); Carbon Dioxide 24 mmol/L (22-29); Chloride 104 mmol/L (98-107); Globulin 3.3 g/dL (1.3-4.6); Glomerular Filtration Rate 151.6 mL/min (90-130); Glucose 92 mg/dL (65-115); Lipase 32 U/L (13-60); Magnesium 2.2 mg/dL (1.7-2.3); Osmolality Calculated 286 mOsm/kg (285-295); Potassium 3.8 mmol/L (3.5-5.1); Sodium 139 mmol/L (136-145); Thyroid Stimulating Hormone 2.64 uIU/mL (0.27-4.20); Total Bilirubin 0.3 mg/dL (0.15-1.2); Total Protein 7.4 g/dL (6.6-8.7)
--- NOTE | 2023-04-17 | CTR_ITS ---
PROCEDURE INFORMATION: Exam: CT Abdomen And Pelvis Without Contrast Exam date and time: 04/17/2023 1:05 AM Age: 23 years old Clinical indication: Abdominal tenderness and bloating; Prior surgery; Surgery date: 6+ months; Surgery type: Ta sujit; Patient HX: Cerebral palsy; Additional info: Abd pain TECHNIQUE: Imaging protocol: Computed tomography of the abdomen and pelvis without contrast. Radiation optimization: All CT scans at this facility use at least one of these dose optimization techniques: automated exposure control; mA and/or kV adjustment per patient size (includes targeted exams where dose is matched to clinical indication); or iterative reconstruction. REPORTING DATA: Count of CT and Cardiac NM exams in prior 12 months: This patient has received 3 known CTs and 0 known cardiac nuclear medicine studies in the 12 months prior to the current study. COMPARISON: 1. CT abdomen pelvis w con* [id number] 04/21/2022 1:[address] angio chest w abd pel w con 09/13/2022 3:53 AM RADIATION DOSE METRICS: Total DLP (mGy-cm): 1059.95 FINDINGS: Limitations: Study somewhat limited due to streak artifact created by the patient being scanned with the arms at the sides. Extensive metallic hardware in the lumbar spine and lower thoracic spine cause significant streak artifact on this examination. The absence of intravenous contrast lessens the sensitivity of this study for solid organ abnormalities. Liver: Allowing for streak artifact liver is unremarkable. Liver is mildly enlarged and larger than on 04/21/2024. Liver now measures 22 cm in height Gallbladder and bile ducts: Normal. No calcified stones. No ductal dilation. Pancreas: Pancreas is unremarkable. Spleen: Allowing for streak artifact no splenic abnormality is identified. Adrenal glands: Normal. No mass. Kidneys and ureters: Allowing for extensive streak artifact kidneys are unremarkable. There is no hydronephrosis. Stomach and bowel: There is a large amount of feces through the colon which could represent constipation. There is mild gaseous distention of small bowel loops which could represent ileus. There is no transition point or other finding to suggest obstruction. Appendix: Appendix is not identified Intraperitoneal space: Unremarkable. No free air. No significant fluid collection. Vasculature: Unremarkable. No abdominal aortic aneurysm. Lymph nodes: Unremarkable. No enlarged lymph nodes. Urinary bladder: There is contrast excretion by the kidneys in there is a small amount of contrast within the urinary bladder. This is presumably due to different examination. Please correlate with the patient's history. Urinary bladder is moderately distended but otherwise unremarkable. Reproductive: Unremarkable as visualized. Bones/joints: There are extensive postsurgical changes in the thoracic and lumbar spine with bilateral Ta rods and numerous pedicle screws. The findings are stable compared with 04/21/2022. No acute fracture is identified. Soft tissues: Unremarkable. CT/CT abdomen pelvis wo con [id number] IMPRESSION: 1. Liver appears slightly larger than on 04/21/2022 2. Findings of constipation 3. Increased small-bowel gas without signs of obstruction 4. Findings of colonic interposition not significantly changed from previous examination. 5. Stable postsurgical changes in the lumbar spine.
[2023-04-17 00:46] VITALS: BP 126/83; PULSE 105; RESP 16; O2SAT 97
[2023-04-17 01:10] LABS: Troponin 5 2HR 7.83 ng/L (0-10); Troponin 5 2HR Delta -0.17 ABS# (0-10)
--- NOTE | 2023-04-17 02:34 | ED_ITS ---
Documented by User: Jayna Magallon MD 06/16/23 20:27 HPI - SOB/Dyspnea General: Chief Complaint: Shortness of Breath/Dyspnea Stated Complaint: sob Time Seen by Provider: 04/16/23 21:32 History of Present Illness: HPI Narrative: took over care pending labs. Ct scan was ordered and reviewed by me. PFS ED PFSH: Medical History Cerebral palsy Generalized anxiety disorder Major depressive disorder, recurrent, moderate Wheelchair dependence Surgical History History of ankle surgery Family History Denies family history of Colon cancer Ovarian cancer Diabetes Heart disease Hypercholesteremia Breast cancer Hypertension Uterine cancer Thyroid disease Stroke Course Reevaluation(s): Reevaluation #1: stable. no acute distress. Heart rate on the monitor is 90 Vital Signs: Vital signs: Vital Signs Temperature 99.2 F 04/17/23 02:53 Pulse Rate 105 H 04/17/23 02:53 Respiratory Rate 16 04/17/23 02:53 Blood Pressure 126/83 04/17/23 02:53 Pulse Oximetry 97 04/17/23 02:53 MDM - SOB/Dyspnea Lab Data 04/16/23 22:18 04/16/23 23:00 Labs/Radiology: Radiology Impressions Chest X-Ray 04/16/23 21:41 IMPRESSION: No acute infiltrate. Abdomen/Pelvis CT 04/17/23 00:00 IMPRESSION: 1. Liver appears slightly larger than on 04/21/2022 2. Findings of constipation 3. Increased small-bowel gas without signs of obstruction 4. Findings of colonic interposition not significantly changed from previous examination. 5. Stable postsurgical changes in the lumbar spine. Laboratory Results WBC 9.3 10^3/uL (4.0-10.0) 04/16/23 22:18 RBC 4.63 10^6/uL (4.1-5.3) 04/16/23 22:18 Hgb 13.3 g/dL (11.5-15.3) 04/16/23 22:18 Hct 40.5 % (37.0-47.0) 04/16/23 22:18 MCV 87.5 fl (81-99) 04/16/23 22:18 MCH 28.7 pg (28.0-34.0) 04/16/23 22:18 MCHC 32.8 g/dL (30.0-36.0) 04/16/23 22:18 RDW 12.8 % (12.1-15.1) 04/16/23 22:18 Plt Count 207 10^3/cmm (130-400) 04/16/23 22:18 MPV 10.4 fL (7.4-10.4) 04/16/23 22:18 Neut % (Auto) 64.5 % 04/16/23 22:18 Lymph % (Auto) 23.5 % 04/16/23 22:18 [place] % (Auto) 10.1 % 04/16/23 22:18 Eos % (Auto) 1.6 % 04/16/23 22:18 Baso % (Auto) 0.2 % 04/16/23 22:18 Neut # (Auto) 5.97 10^3/uL (1.8-7.7) 04/16/23 22:18 Lymph # (Auto) 2.2 10^3/uL (0.8-4.8) 04/16/23 22:18 [place] # (Auto) 0.9 10^3/uL (0.2-0.9) 04/16/23 22:18 Eos # (Auto) 0.2 10^3/uL (0.0-0.8) 04/16/23 22:18 Baso # (Auto) 0.0 10^3/uL (0.0-0.1) 04/16/23 22:18 Nucleated RBC % (auto) 0 % 04/16/23:18 Nucleated RBCs # 0.0 /100WBC 04/16/23 22:18 Sodium 139 mmol/L (136-145) 04/16/23 23:00 Potassium 3.8 mmol/L (3.5-5.1) 04/16/23 23:00 Chloride 104 mmol/L (98-107) 04/16/23 23:00 Carbon Dioxide 24 mmol/L (22-29) 04/16/23 23:00 Anion Gap 14.8 (5-19) 04/16/23 23:00 BUN 7 mg/dL (6-20) 04/16/23 23:00 Creatinine 0.5 mg/dL (0.5-0.9) 04/16/23 23:00 GFR Calculation 151.6 mL/min (90-130) H 04/16/23 23:00 Glucose 92 mg/dL (65-115) 04/16/23 23:00 Calculated Osmolality 286 mOsm/kg (285-295) 04/16/23 23:00 Calcium 8.9 mg/dL (8.5-10.5) 04/16/23 23:00 Magnesium 2.2 mg/dL (1.7-2.3) 04/16/23 23:00 Total Bilirubin 0.3 mg/dL (0.15-1.2) 04/16/23 23:00 AST 12 U/L (0-32) 04/16/23 23:00 ALT 13 U/L (0-33) 04/16/23 23:00 Alkaline Phosphatase 102 U/L (35-105) 04/16/23 23:00 Troponin T Baseline 8 ng/L (0-10) 04/16/23 23:00 Troponin T 120 Minute 7.83 ng/L (0-10) 04/17/23 00:35 Delta Troponin T -0.17 ABS# (0-10) L 04/17/23 00:35 Total Protein 7.4 g/dL (6.6-8.7) 04/16/23 23:00 Albumin 4.1 g/dL (3.5-5.2) 04/16/23 23:00 Globulin 3.3 g/dL (1.3-4.6) 04/16/23 23:00 Lipase 32 U/L (13-60) 04/16/23 23:00 TSH 2.64 uIU/mL (0.27-4.20) 04/16/23 23:00 Discharge Plan Discharge Patient Disposition: Home Clinical Impression: Abdominal pain, Constipation, Atrial tachycardia Condition: Stable Prescriptions: No Action baclofen 10 mg tablet 10 mg PO DAILY clonazepam 0.5 mg tablet 0.5 mg PO BID Rx Instructions: Take one half in AM & one at HS. spironolactone 50 mg tablet 50 mg PO BID levonorgestrel-ethinyl estrad [Aviane] 0.1-20 mg-mcg tablet 1 tab PO DAILY Qty: 28 12RF folic acid 20 mg Capsule 20 mg PO DAILY propranolol 80 mg capsule,extended release 24 hr 80 mg PO DAILY Advil 200 mg Tablet 200 mg PO Q6H PRN (Reason: Pain) hydroxyzine HCl 10 mg tablet 10 mg PO BID PRN (Reason: Anxiety) bisacodyl 5 mg Tablet 10 mg PO DAILY escitalopram oxalate 20 mg tablet 20 mg PO DAILY melatonin 5 mg Tablet 5 mg PO BEDTIME PRN (Reason: Sleep) ZzzQuil 50 mg/30 mL Liquid 50 mg PO BEDTIME PRN (Reason: Sleep) Probiotic 15 billion cell Capsule 1 cap PO DAILY gabapentin 600 mg tablet 600 mg PO BID Qty: 60 0RF Reglan 10 mg tablet 10 mg PO Q6H PRN (Reason: nausea and vomiting) Qty: 20 0RF Naprosyn 500 mg tablet 500 mg PO BID PRN (Reason: pain) Qty: 20 0RF ondansetron 4 mg tablet,disintegrating 4 mg PO Q6H PRN (Reason: nausea and vomiting) Qty: 14 0RF Discharge Orders: Discharge ED (Routine); Ordered 04/17/23 Ordered By: Jayna Magallon Referrals: Carolyn Rosales FNP [Primary Care Provider] - Patient Instructions: Abdominal Pain (ED), Opioid Safety, Pain Management Coding Level of Care Code ED Office Equipment Technician for Chg Fwd Documented by User: Zeb Ramirez DO 04/18/23 20:40 HPI - SOB/Dyspnea General: Chief Complaint: Shortness of Breath/Dyspnea Stated Complaint: sob Time Seen by Provider: 04/16/23 21:32 PFSH ED PFSH: Medical History Cerebral palsy Generalized anxiety disorder Major depressive disorder, recurrent, moderate Wheelchair dependence Surgical History History of ankle surgery Family History Denies family history of Colon cancer Ovarian cancer Diabetes Heart disease Hypercholesteremia Breast cancer Hypertension Uterine cancer Thyroid disease Stroke Course Vital Signs: Vital signs: Vital Signs Temperature 99.2 F 04/17/23 02:53 Pulse Rate 105 H 04/17/23 02:53 Respiratory Rate 16 04/17/23 02:53 Blood Pressure 126/83 04/17/23 02:53 Pulse Oximetry 97 04/17/23 02:53 MDM - SOB/Dyspnea Medical Decision Making Work-up is in progress waiting for results to come back patient will be transfe rred over to the incoming physician for further work-up and treatment. Lab Data 04/16/23 22:18 04/16/23 23:00 Labs/Radiology: Radiology Impressions Chest X-Ray 04/16/23 21:41 IMPRESSION: No acute infiltrate. Abdomen/Pelvis CT 04/17/23 00:00 IMPRESSION: 1. Liver appears slightly larger than on 04/21/2022 2. Findings of constipation 3. Increased small-bowel gas without signs of obstruction 4. Findings of colonic interposition not significantly changed from previous examination. 5. Stable postsurgical changes in the lumbar spine. Laboratory Results WBC 9.3 10^3/uL (4.0-10.0) 04/16/23 22:18 RBC 4.63 10^6/uL (4.1-5.3) 04/16/23 22:18 Hgb 13.3 g/dL (11.5-15.3) 04/16/23 22:18 Hct 40.5 % (37.0-47.0) 04/16/23 22:18 MCV 87.5 fl (81-99) 04/16/23 22:18 MCH 28.7 pg (28.0-34.0) 04/16/23 22:18 MCHC 32.8 g/dL (30.0-36.0) 04/16/23 22:18 RDW 12.8 % (12.1-15.1) 04/16/23 22:18 Plt Count 207 10^3/cmm (130-400) 04/16/23 22:18 MPV 10.4 fL (7.4-10.4) 04/16/23 22:18 Neut % (Auto) 64.5 % 04/16/23 22:18 Lymph % (Auto) 23.5 % 04/16/23 22:18 [place] % (Auto) 10.1 % 04/16/23 22:18 Eos % (Auto) 1.6 % 04/16/23 22:18 Baso % (Auto) 0.2 % 04/16/23 22:18 Neut # (Auto) 5.97 10^3/uL (1.8-7.7) 04/16/23 22:18 Lymph # (Auto) 2.2 10^3/uL (0.8-4.8) 04/16/23 22:18 [place] # (Auto) 0.9 10^3/uL (0.2-0.9) 04/16/23 22:18 Eos # (Auto) 0.2 10^3/uL (0.0-0.8) 04/16/23 22:18 Baso # (Auto) 0.0 10^3/uL (0.0-0.1) 04/16/23 22:18 Nucleated RBC % (auto) 0 % 04/16/23 22:18 Nucleated RBCs # 0.0 /100WBC 04/16/23 22:18 Sodium 139 mmol/L (136-145) 04/16/23 23:00 Potassium 3.8 mmol/L (3.5-5.1) 04/16/23 23:00 Chloride 104 mmol/L (98-107) 04/16/23 23:00 Carbon Dioxide 24 mmol/L (22-29) 04/16/23 23:00 Anion Gap 14.8 (5-19) 04/16/23 23:00 BUN 7 mg/dL (6-20) 04/16/23 23:00 Creatinine 0.5 mg/dL (0.5-0.9) 04/16/23 23:00 GFR Calculation 151.6 mL/min (90-130) H 04/16/23 23:00 Glucose 92 mg/dL (65-115) 04/16/23 23:00 Calculated Osmolality 286 mOsm/kg (285-295) 04/16/23 23:00 Calcium 8.9 mg/dL (8.5-10.5) 04/16/23 23:00 Magnesium 2.2 mg/dL (1.7-2.3) 04/16/23 23:00 Total Bilirubin 0.3 mg/dL (0.15-1.2) 04/16/23 23:00 AST 12 U/L (0-32) 04/16/23 23:00 ALT 13 U/L (0-33) 04/16/23 23:00 Alkaline Phosphatase 102 U/L (35-105) 04/16/23 23:00 Troponin T Baseline 8 ng/L (0-10) 04/16/23 23:00 Troponin T 120 Minute 7.83 ng/L (0-10) 04/17/23 00:35 Delta Troponin T -0.17 ABS# (0-10) L 04/17/23 00:35 Total Protein 7.4 g/dL (6.6-8.7) 04/16/23 23:00 Albumin 4.1 g/dL (3.5-5.2) 04/16/23 23:00 Globulin 3.3 g/dL (1.3-4.6) 04/16/23 23:00 Lipase 32 U/L (13-60) 04/16/23 23:00 TSH 2.64 uIU/mL (0.27-4.20) 04/16/23 23:00 Discharge Plan Discharge Patient Disposition: Home Clinical Impression: Abdominal pain, Constipation, Atrial tachycardia Condition: Stable Prescriptions: No Action baclofen 10 mg tablet 10 mg PO DAILY clonazepam 0.5 mg tablet 0.5 mg PO BID Rx Instructions: Take one half in AM & one at HS. spironolactone 50 mg tablet 50 mg PO BID levonorgestrel-ethinyl estrad [Aviane] 0.1-20 mg-mcg tablet 1 tab PO DAILY Qty: 28 12RF folic acid 20 mg Capsule 20 mg PO DAILY propranolol 80 mg capsule,extended release 24 hr 80 mg PO DAILY Advil 200 mg Tablet 200 mg PO Q6H PRN (Reason: Pain) hydroxyzine HCl 10 mg tablet 10 mg PO BID PRN (Reason: Anxiety) bisacodyl 5 mg Tablet 10 mg PO DAILY escitalopram oxalate 20 mg tablet 20 mg PO DAILY melatonin 5 mg Tablet 5 mg PO BEDTIME PRN (Reason: Sleep) ZzzQuil 50 mg/30 mL Liquid 50 mg PO BEDTIME PRN (Reason: Sleep) Probiotic 15 billion cell Capsule 1 cap PO DAILY gabapentin 600 mg tablet 600 mg PO BID Qty: 60 0RF Reglan 10 mg tablet 10 mg PO Q6H PRN (Reason: nausea and vomiting) Qty: 20 0RF Naprosyn 500 mg tablet 500 mg PO BID PRN (Reason: pain) Qty: 20 0RF ondansetron 4 mg tablet,disintegrating 4 mg PO Q6H PRN (Reason: nausea and vomiting) Qty: 14 0RF Discharge Orders: Discharge ED (Routine); Ordered 04/17/23 Ordered By: Jayna Magallon Referrals: Carolyn Rosales, [employer] [Primary Care Provider] - Patient Instructions: Abdominal Pain (ED), Opioid Safety, Pain Management Coding Level of Care Code ED Office Equipment Technician for Atif Woodard
[2023-04-17 02:53] VITALS: BP 126/83; PULSE 105; RESP 16; TEMP 37.3; O2SAT 97
== END 2023-04-17 02:56 | disposition home or self-care (01) ==
PROVIDERS: Emergency Provider Emergency Medicine; PCP Nurse Practitioner
DX: K59.00 Constipation, unspecified (principal); R10.11 Right upper quadrant pain; I47.1 Supraventricular tachycardia; G80.9 Cerebral palsy, unspecified; Z99.3 Dependence on wheelchair
CPT/HCPCS: 36415; 71045; 74176; 80053; 83690; 83735; 84443; 84484; 85025; 93005; 96361; 96374; 99285; J1885; J7030; Q9967

== ENCOUNTER → 2023-04-21 15:50 | Outpatient (BNVA) | payer MEDICARE, MEDICAID, SELFPAY | PROVIDERS: PCP Nurse Practitioner; Visit Provider Nurse Practitioner Women's Health | DX: N93.9 Abnormal uterine and vaginal bleeding, unspecified (principal) | CPT/HCPCS: 76830; 88175 ==

== ENCOUNTER → 2023-06-17 08:57 | Outpatient (BNVA) | payer MEDICARE, MEDICAID, SELFPAY | PROVIDERS: PCP Nurse Practitioner; Referring Provider Nurse Practitioner; Visit Provider Internal Medicine Cardiovascular Disease | DX: R07.9 Chest pain, unspecified (principal) | CPT/HCPCS: 93242 ==

== ENCOUNTER → 2023-07-08 12:32 | Outpatient (BNVA) | payer MEDICARE, MEDICAID, SELFPAY | PROVIDERS: PCP Nurse Practitioner; Referring Provider Nurse Practitioner; Visit Provider Internal Medicine | DX: R07.9 Chest pain, unspecified (principal); R00.2 Palpitations; G80.9 Cerebral palsy, unspecified; F33.1 Major depressive disorder, recurrent, moderate | CPT/HCPCS: 93005; 99203; 99204 ==

== ENCOUNTER 2023-09-09 13:16 | Outpatient (CLI) | payer MEDICARE, MEDICAID, SELFPAY ==
--- NOTE | 2023-09-09 | USCV_ITS ---
Dobutamine Stress Echo Maria Esther Rust Age: 23 Gender: F : 2000 Exam Date: 09/09/2023 13:53 Ordering Phys: Bert Gaines MD ([email or web address]) Technologist: Imtiaz Haskins Exam Location: [facility] [place] Indication: Chest pain Rhythm: Sinus Patient History: Cerebral Palsy, Anxiety Disorder Cardiac Medications: Spironolactone 50mg BID Medications in past 24 hours: None Contrast: Total Dose (mL): Stress Results Protocol: Pharmacologic Peak Dose (???g/kg/min): Duration (min:sec): 11:56 Atropine:(mg) Target HR: 167 Double Product: [id number] Resting HR: 79 Resting BP: 121 / 97 Peak HR: 167 Peak BP: 196 / 97 Max Predicted HR: 196 85 % Max Predicted HR Stress Summary: The hemodynamic response to stress was normal. The patient's target heart rate was achieved. BP Response: Normal Reason for Termination: The patients target heart rate was achieved Cardiac Symptoms: CP at peak HR. Resolved when HR returned to normal ECG Analysis Resting EKG: Please see separate report Stress EKG: Please see separate report Arrhythmia: Please see separate report MEASUREMENTS (Male/Female) Normal Values FINDINGS The baseline echocardiogram with normal LV size and ejection fraction, based on the parasternal views. Mild concentric left hypertrophy. No St Yang wall motion normalities were noted. With the low and the peak dobutamine infusion, there was good augmentation of all the segments with no significant wall motion normalities. During the recovery phase, there were no new changes. No apical views were obtained since the patient's because of the patient's body habitus CONCLUSIONS Normal echocardiographic response to dobutamine infusion The study quality is compromised because of the lack of apical views Possibly no significant coronary ischemia, based on the above findings Dr Bert Gaines MD FAC (Electronically Signed) Final Date: 12 September 2023 19:16 S
[2023-09-09 13:20] VITALS: BMI 34.3
--- NOTE | 2023-09-09 13:21 | ECG_ITS ---
[facility] Test Date: 2023-09-09 Pat Name: Maria Esther Rust Department: Room: Gender: Female Forging Operator: Eileen Hartmann : 2000 Requested By: Bert Gaines Order Number: [id number] Milly MD: Bert Gaines M.D. Interpretive Statements NAME OF STUDY: DOBUTAMINE STRESS ECHOCARDIOGRAM INDICATION: Chest Pain, PROCEDURE: At the baseline, the blood pressure was 121/97 with a heart rate of 80. The electrocardiogram showed normal sinus rhythm with a normal ST Ts.. The dobutamine was infused over a period of 11 minutes and 56 seconds. The maximum heart rate obtained was 167 (85% of the maximum predicted heart rate). The blood pressure at that time was 154/78 mmHg. The patient did not have any chest pain or any significant electrocardiogram changes with the dobutamine infusion. The physical examination remained unchanged. No arrhythmias were seen on the monitor. During the recovery phase, the patient did not have any specific symptoms. The blood pressure at the end of the recovery phase was 140/89 with a heart rate of 99 per minute. CONCLUSION: 1. Normal EKG response to dobutamine infusion 2. No dobutamine induced chest pain or cardiac arrhythmia 3. Normal blood pressure and heart rate response to dobutamine infusion 4. Echocardiographic pictures were taken at the baseline, low-dose infusion, peak dose infusion and during the recovery phase. Please see separate report Electronically Signed On 09-12-2023 18:28:58 SOFTWARE ARCHITECT by Bert Gaines M.D. [id number]
[2023-09-09] MEDS: DOBUTtamine 200 MG in sodium chloride 0.9% 34 ML 13.61 MG IV (14:04)
[2023-09-09] MEDS: ondansetron 2 mg/ML SDV 2 mL 4 MG IVP (14:23)
[2023-09-09 14:48] VITALS: BP 140/89; PULSE 93
== END 2023-09-09 13:17 | disposition home or self-care (01) ==
LOC: CDL 13:16
PROVIDERS: PCP Nurse Practitioner; Visit Provider Internal Medicine Cardiovascular Disease
DX: R07.9 Chest pain, unspecified (principal)
CPT/HCPCS: 36415; 93017; 93350; 96374; 96375; J1250; J2405; J7050

== ENCOUNTER 2024-01-21 13:50 | Outpatient (CLI) | payer MEDICARE, MEDICAID, OTHER, SELFPAY ==
[2024-01-21 14:35] LABS: Alanine Aminotransferase 9 U/L (0-33); Albumin Level 4.3 g/dL (3.5-5.2); Alkaline Phosphatase 132 U/L (35-105); Blood Urea Nitrogen 11 mg/dL (6-20); Calcium 9.4 mg/dL (8.5-10.5); Carbon Dioxide 25 mmol/L (22-29); Chloride 102 mmol/L (98-107); Globulin 3.3 g/dL (1.3-4.6); Glomerular Filtration Rate 196.1 mL/min (90-130); Glucose 86 mg/dL (65-115); Osmolality Calculated 281 mOsm/kg (285-295); Sodium 136 mmol/L (136-145); Total Bilirubin 0.4 mg/dL (0.15-1.2); Total Protein 7.6 g/dL (6.6-8.7)
[2024-01-21 14:38] LABS: Anion Gap 13.3 (5-19); Aspartate Amino Transferase 18 U/L (0-32); Potassium 4.3 mmol/L (3.5-5.1)
== END 2024-01-21 13:51 | disposition home or self-care (01) ==
PROVIDERS: PCP Nurse Practitioner; Visit Provider Nurse Practitioner Family
DX: L70.0 Acne vulgaris (principal); L21.8 Other seborrheic dermatitis; L23.9 Allergic contact dermatitis, unspecified cause
CPT/HCPCS: 36415; 80053; 99204

== ENCOUNTER → 2024-03-11 10:26 | Outpatient (BNVA) | payer MEDICARE, MEDICAID, OTHER, SELFPAY | PROVIDERS: PCP Nurse Practitioner; Visit Provider Nurse Practitioner Family | DX: R00.2 Palpitations (principal) | CPT/HCPCS: 99213 ==

== ENCOUNTER → 2024-04-01 09:16 | Outpatient (BNVA) | payer MEDICARE, OTHER, MEDICAID, SELFPAY | PROVIDERS: PCP Nurse Practitioner; Visit Provider Thoracic Surgery (Cardiothoracic Vascular Surgery) | DX: I96 Gangrene, not elsewhere classified (principal); L89.322 Pressure ulcer of left buttock, stage 2 | CPT/HCPCS: 97597; 99213; A6210; A6212 ==

== ENCOUNTER → 2024-04-09 13:53 | Outpatient (BNVA) | payer MEDICARE, OTHER, MEDICAID, SELFPAY | PROVIDERS: PCP Nurse Practitioner; Visit Provider Thoracic Surgery (Cardiothoracic Vascular Surgery) | DX: Z09 Encounter for follow-up examination after completed treatment for conditions other than malignant neoplasm (principal); Z87.2 Personal history of diseases of the skin and subcutaneous tissue | CPT/HCPCS: 99212 ==

== ENCOUNTER → 2024-04-27 10:26 | Outpatient (BNVA) | payer MEDICARE, OTHER, MEDICAID, SELFPAY | PROVIDERS: PCP Nurse Practitioner; Visit Provider Thoracic Surgery (Cardiothoracic Vascular Surgery) | DX: Z09 Encounter for follow-up examination after completed treatment for conditions other than malignant neoplasm (principal); Z87.2 Personal history of diseases of the skin and subcutaneous tissue | CPT/HCPCS: 99212; A6213 ==

== ENCOUNTER 2024-05-06 11:33 | Outpatient (CLI) | payer MEDICARE, OTHER, MEDICAID, SELFPAY ==
[2024-05-06 13:06] LABS: Alanine Aminotransferase 10 U/L (0-33); Albumin Level 4.6 g/dL (3.5-5.2); Alkaline Phosphatase 137 U/L (35-105); Aspartate Amino Transferase 17 U/L (0-32); Blood Urea Nitrogen 11 mg/dL (6-20); Calcium 9.7 mg/dL (8.5-10.5); Carbon Dioxide 22 mmol/L (22-29); Chloride 103 mmol/L (98-107); Globulin 2.8 g/dL (1.3-4.6); Glomerular Filtration Rate 194.5 mL/min (90-130); Glucose 84 mg/dL (65-115); Osmolality Calculated 291 mOsm/kg (285-295); Sodium 141 mmol/L (136-145); Total Bilirubin 0.4 mg/dL (0.15-1.2); Total Protein 7.4 g/dL (6.6-8.7)
[2024-05-06 13:13] LABS: Anion Gap 20.4 (5-19); Potassium 4.4 mmol/L (3.5-5.1)
== END 2024-05-06 11:34 | disposition home or self-care (01) ==
LOC: LAB 11:37
PROVIDERS: PCP Nurse Practitioner; Visit Provider Nurse Practitioner Family
DX: L70.0 Acne vulgaris (principal); L21.8 Other seborrheic dermatitis; L23.9 Allergic contact dermatitis, unspecified cause
CPT/HCPCS: 36415; 80053

== ENCOUNTER 2024-06-03 14:28 | Observation (INO) | payer MEDICARE, MEDICAID, SELFPAY ==
[2024-06-03] VITALS (10 sets, daily range): BP systolic 105–163; BP diastolic 69–106; PULSE 108–124; RESP 16–18; TEMP 36.8–37.6; O2SAT 94–100
--- NOTE | 2024-06-03 15:13 | CTR_ITS ---
PROCEDURE INFORMATION: Exam: CT Abdomen And Pelvis With Contrast Exam date and time: 06/03/2024 4:35 PM Age: 24 years old Clinical indication: Abdominal pain; Prior surgery; Surgery date: 6+ months; Surgery type: Back; Additional info: Abd pain TECHNIQUE: Imaging protocol: Computed tomography of the abdomen and pelvis with contrast. Radiation optimization: All CT scans at this facility use at least one of these dose optimization techniques: automated exposure control; mA and/or kV adjustment per patient size (includes targeted exams where dose is matched to clinical indication); or iterative reconstruction. Contrast material: OMNI 350; Contrast volume: 100 ml; Contrast route: INTRAVENOUS (IV); COMPARISON: CT abdomen pelvis wo con [id number] 04/17/2023 1:05 AM RADIATION DOSE METRICS: Total DLP (mGy-cm): 928 FINDINGS: Tubes, catheters and devices: Ta rods and screws in place. Pelvic fixation hardware in place. Lungs: The visualized portions of the lungs are unremarkable. Liver: The liver is unremarkable. Gallbladder and biliary ducts: The gallbladder is unremarkable. No biliary dilation. Pancreas: The pancreas is unremarkable. Spleen: The spleen is unremarkable. Adrenal glands: The adrenal glands are unremarkable. Kidneys and ureters: The kidneys are unremarkable. Stomach and bowel: Large rectal and colonic stool load with rectal distension. There is no bowel wall thickening. No bowel obstruction. Appendix: Appendix is not identified. No findings to suggest acute appendicitis. Intraperitoneal space: No significant peritoneal free fluid. No free peritoneal air. Vasculature: The vasculature is unremarkable. No aneurysm. Lymph nodes: No enlarged lymph nodes by size criteria. Urinary bladder: The bladder is unremarkable. Reproductive: Uterus is unremarkable. No suspicious adnexal lesion seen. Bones/joints: Mild lumbar levocurvature. Soft tissues: There is a small fat-containing umbilical hernia. CT/CT abdomen pelvis w con* [id number] IMPRESSION: 1. Large rectal and colonic stool load with rectal distension, correlate for constipation. 2. Otherwise, no acute findings.
--- NOTE | 2024-06-03 15:14 | ED_ITS ---
HPI - Abdominal Pain 2 General: Chief Complaint: Abdominal Pain Stated Complaint: bowl obstruction Time Seen by Provider: 06/03/24 15:09 Source: patient Mode of arrival: ambulatory Limitations: no limitations History of Present Illness: 24-year-old female history of cerebral p alsy states she has been having abdominal pains been increasing last 3 to 4 days. States she been having some vomiting states she goes back and forth between constipation and diarrhea she is seen at [facility] and x-ray is concerning for possible bowel obstruction. She denies any fevers denies any worsening improving factors. Associated Symptoms: Reports diarrhea, nausea and vomiting; Denies chills, dysuria and fever(s) Related Data Home Medications Medication Instructions Recorded Confirmed baclofen 10 mg tablet 10 mg PO DAILY 01/16/21 06/03/24 clonazepam 0.5 mg tablet 0.5 mg PO BID 01/16/21 06/03/24 spironolactone 50 mg tablet 50 mg PO BID 01/16/21 06/03/24 Lactobacillus acidophilus and 1 cap PO DAILY 06/28/22 06/03/24 rhamnosus 15 billion cell capsule (Probiotic) bisacodyl 5 mg tablet 10 mg PO DAILY PRN Constipation 06/28/22 06/03/24 diphenhydramine HCl 50 mg/30 mL 50 mg PO BEDTIME PRN Sleep 06/28/22 06/03/24 oral liquid (ZzzQuil) escitalopram oxalate 20 mg tablet 20 mg PO DAILY 06/28/22 06/03/24 folic acid 20 mg capsule 20 mg PO DAILY 06/28/22 06/03/24 hydroxyzine HCl 10 mg tablet 10 mg PO BID PRN Anxiety 06/28/22 06/03/24 ibuprofen 200 mg tablet (Advil) 200 mg PO Q6H PRN Pain 06/28/22 06/03/24 melatonin 5 mg tablet 5 mg PO BEDTIME PRN Sleep 06/28/22 06/03/24 Previous Rx's Medication Instructions Recorded gabapentin 600 mg tablet 600 mg PO BID #60 tabs 06/28/22 naproxen 500 mg tablet (Naprosyn) 500 mg PO BID PRN pain #20 tabs 12/03/22 ondansetron 4 mg disintegrating 4 mg PO Q6H PRN nausea and 12/03/22 tablet vomiting #14 tabs Allergies Allergy/AdvReac Type Severity Reaction Status Date / Time adhesive tape Allergy Intermediate ALGY-Rash Verified 03/11/24 10:35 Sulfa (Sulfonamide Allergy Intermediate ALGY-Hives Verified 03/11/24 10:35 Antibiotics) bacitracin Allergy ALGY-Rash Verified 03/11/24 10:35 [From Neosporin ([id number])] neomycin Allergy ALGY-Rash Verified 03/11/24 10:35 [From Neosporin ([id number])] polymyxin B Allergy ALGY-Rash Verified 03/11/24 10:35 [From Neosporin ([id number])] Review of Systems 2 Const: Denies: fever(s), chills, body aches or change in appetite ENMT: Denies: throat pain or dental pain Card: Denies: chest pain Resp: Denies: dyspnea GI: Reports: abdominal pain, nausea, vomiting and diarrhea : Denies: dysuria Musc: Denies: neck pain or back pain Skin/Breast: Denies: rash Neuro: Denies: headache(s) PFSH ED 2 PFSH: Medical History Wheelchair dependence Cerebral palsy Generalized anxiety disorder Major depressive disorder, recurrent, moderate Surgical History History of ankle surgery Family History Denies family history of Colon cancer Ovarian cancer Diabetes Heart disease Hypercholesteremia Breast cancer Hypertension Uterine cancer Thyroid disease Stroke Social History Smoking and tobacco/nicotine status: never used tobacco/nicotine Physical Exam 2 Const: COMMON NORMALS: patient oriented x3 HENMT: COMMON NORMALS: normocephalic and atraumatic HEAD & SCALP: n ormocephalic and atraumatic Eye: COMMON NORMALS: conjunctivae normal CONJUNCTIVA: Yes conjunctivae normal Neck/C-Spine: COMMON NORMALS: full ROM and supple Chest: COMMONS NORMALS: normal inspection of the chest Resp: COMMON NORMALS: normal respiratory effort, No retractions, No use of accessory muscles and clear to auscultation bilaterally AUSCULTATION: clear to auscultation bilaterally Cardio: COMMON NORMALS: regular rate, regular rhythm and No murmurs present (Cardio) RATE: regular rate RHYTHM: regular rhythm GI: COMMON NORMALS: Soft to palpation and no masses PALPATION: Yes Soft to palpation OTHER: Slightly distended abdomen with diffuse tenderness Extremity: COMMON NORMALS: normal to inspection and full ROM Neuro: COMMON NORMALS: patient oriented x3, moves all extremities and no focal motor deficits Psych: COMMON NORMALS: mental status grossly normal, Normal thought process present and cooperative THOUGHT PROCESS: Normal thought process present Skin: COMMON NORMALS: no rashes or lesions noted and no wounds GENERAL SKIN EXAM: no rashes or lesions noted Course 2 Vital Signs: Vital signs: Vital Signs Temperature 99.6 F 06/03/24 14:45 Pulse Rate 121 H 06/03/24 18:31 Respiratory Rate 18 06/03/24 18:31 Blood Pressure 129/96 06/03/24 18:31 Pulse Oximetry 96 06/03/24 18:31 Oxygen Delivery Me thod Room Air 06/03/24 18:31 MDM - Abdominal Pain Medical Decision Making Patient presents here with abdominal pain CT showed a constipation she has been using MiraLAX and milk of mag at home with no success will admit at this time for enemas spoke to the hospitalist. Medical Records I reviewed the patient's medical records. Lab Data I reviewed the patient's lab results. 06/03/24 15:40 06/03/24 15:40 Labs/Radiology: Radiology Impressions Abdomen/Pelvis CT 06/03/24 15:13 IMPRESSION: 1. Large rectal and colonic stool load with rectal distension, correlate for constipation. 2. Otherwise, no acute findings. Laboratory Results WBC 6.97 10^3/uL (3.29-11.43) 06/03/24 15:40 RBC 4.96 10^6/uL (3.85-5.65) 06/03/24 15:40 Hgb 14.50 g/dL (11.27-16.99) 06/03/24 15:40 Hct 43.2 % (36-47) 06/03/24 15:40 MCV 87.1 fl (85-98) 06/03/24 15:40 MCH 29.2 pg (27-33) 06/03/24 15:40 MCHC 33.6 g/dL (30-55) 06/03/24 15:40 RDW 13.3 % (12.1-15.1) 06/03/24 15:40 Plt Count 195 10^3/cmm (157-399) 06/03/24 15:40 MPV 10.3 fL (7.4-10.4) 06/03/24 15:40 Neut % (Auto) 65.5 % 06/03/24 15:40 Lymph % (Auto) 26.5 % 06/03/24 15:40 [place] % (Auto) 6.2 % 06/03/24 15:40 Eos % (Auto) 0.9 % 06/03/24 15:40 Baso % (Auto) 0.6 % 06/03/24 15:40 Neut # (Auto) 4.57 10^3/uL (1.8-7.7) 06/03/24 15:40 Lymph # (Auto) 1.9 10^3/uL (0.8-4.8) 06/03/24 15:40 [place] # (Auto) 0.4 10^3/uL (0.2-0.9) 06/03/24 15:40 Eos # (Auto) 0.1 10^3/uL (0.0-0.8) 06/03/24 15:40 Baso # (Auto) 0.0 10^3/uL (0.0-0.1) 06/03/24 15:40 Nucleated RBC % (auto) 0 % 06/03/24 15:40 Nucleated RBCs # 0.0 /100WBC 06/03/24 15:40 Sodium 141 mmol/L (136-145) 06/03/24 15:40 Potassium 4.0 mmol/L (3.5-5.1) 06/03/24 15:40 Chloride 105 mmol/L (98-107) 06/03/24 15:40 Carbon Dioxide 21 mmol/L (22-29) L 06/03/24 15:40 Anion Gap 19.0 (5-19) 06/03/24 15:40 BUN 10 mg/dL (6-20) 06/03/24 15:40 Creatinine 0.5 mg/dL (0.5-0.9) 06/03/24 15:40 GFR Calculation 150.3 mL/min (90-130) H 06/03/24 15:40 Glucose 79 mg/dL (65-115) 06/03/24 15:40 Calculated Osmolality 290 mOsm/kg (285-295) 06/03/24 15:40 Lactic Acid 1.1 mmol/L (0.5-2.2) 06/03/24 15:40 Calcium 9.6 mg/dL (8.5-10.5) 06/03/24 15:40 Total Bilirubin 0.4 mg/dL (0.15-1.2) 06/03/24 15:40 AST 17 U/L (0-32) 06/03/24 15:40 ALT 10 U/L (0-33) 06/03/24 15:40 Alkaline Phosphatase 136 U/L (35-105) H 06/03/24 15:40 Total Protein 8.0 g/dL (6.6-8.7) 06/03/24 15:40 Albumin 4.6 g/dL (3.5-5.2) 06/03/24 15:40 Globulin 3.4 g/dL (1.3-4.6) 06/03/24 15:40 Lipase 35 U/L (13-60) 06/03/24 15:40 HCG, Qual Negative (Negative) 06/03/24 15:40 All radiology interpretation(s) finalized by discharge Discharge Plan Discharge Patient Disposition: Admitted As Inpatient Clinical Impression: Abdominal pain, Constipation Condition: Stable Prescriptions: No Action baclofen 10 mg tablet 10 mg PO DAILY clonazepam 0.5 mg tablet 0.5 mg PO BID Rx Instructions: Take one half in AM & one at HS. spironolactone 50 mg tablet 50 mg PO BID folic acid 20 mg Capsule 20 mg PO DAILY ibuprofen [Advil] 200 mg Tablet 200 mg PO Q6H PRN (Reason: Pain) hydroxyzine HCl 10 mg tablet 10 mg PO BID PRN (Reason: Anxiety) bisacodyl 5 mg Tablet 10 mg PO DAILY PRN (Reason: Constipation) escitalopram oxalate 20 mg tablet 20 mg PO DAILY melatonin 5 mg Tablet 5 mg PO BEDTIME PRN (Reason: Sleep) ZzzQuil 50 mg/30 mL Liquid 50 mg PO BEDTIME PRN (Reason: Sleep) Probiotic 15 billion cell Capsule 1 cap PO DAILY gabapentin 600 mg tablet 600 mg PO BID Qty: 60 0RF naproxen [Naprosyn] 500 mg tablet 500 mg PO BID PRN (Reason: pain) Qty: 20 0RF ondansetron 4 mg tablet,disintegrating 4 mg PO Q6H PRN (Reason: nausea and vomiting) Qty: 14 0RF Referrals: Carolyn Rosales, DATA COLLECTION SPECIALIST [Primary Care Provider] - 4-7 days Patient Instructions: Constipation (ED), Abdominal Pain (ED) Coding Level of Care Code ED Category Development Analyst for Atif Woodard
[2024-06-03] MEDS: morphine 4 mg/mL SDV 1 mL IVP ×2 (15:44→18:13)
[2024-06-03] MEDS: sodium chloride 0.9% 1,000 ML 999 ML IV (15:45)
[2024-06-03] MEDS: ondansetron 2 mg/ML SDV 2 mL 4 MG IVP (15:46)
[2024-06-03 16:07] LABS: Basophils % 0.6 %; Eosinophils # 0.1 10^3/uL (0.0-0.8); Eosinophils % 0.9 %; Hematocrit 43.2 % (36-47); Lymphocytes # 1.9 10^3/uL (0.8-4.8); Lymphocytes % 26.5 %; Mean Corpuscular HGB Conc 33.6 g/dL (30-55); Mean Corpuscular Hemoglobin 29.2 pg (27-33); Mean Corpuscular Volume 87.1 fl (85-98); Mean Platelet Volume 10.3 fL (7.4-10.4); Monocytes # 0.4 10^3/uL (0.2-0.9); Monocytes % 6.2 %; Neutrophils # 4.57 10^3/uL (1.8-7.7); Neutrophils % 65.5 %; Nucleated Red Blood Cells % 0 %; Platelet Count 195 10^3/cmm (157-399); Red Blood Count 4.96 10^6/uL (3.85-5.65); Red Cell Distribution Width 13.3 % (12.1-15.1); White Blood Count 6.97 10^3/uL (3.29-11.43)
[2024-06-03 16:15] LABS: HCG, Serum Qual Negative (Negative)
[2024-06-03 16:20] LABS: Alanine Aminotransferase 10 U/L (0-33); Albumin Level 4.6 g/dL (3.5-5.2); Alkaline Phosphatase 136 U/L (35-105); Aspartate Amino Transferase 17 U/L (0-32); Blood Urea Nitrogen 10 mg/dL (6-20); Calcium 9.6 mg/dL (8.5-10.5); Carbon Dioxide 21 mmol/L (22-29); Chloride 105 mmol/L (98-107); Creatinine Clr Calc Pharmacy 197.4984; Globulin 3.4 g/dL (1.3-4.6); Glomerular Filtration Rate 150.3 mL/min (90-130); Glucose 79 mg/dL (65-115); Lipase 35 U/L (13-60); Osmolality Calculated 290 mOsm/kg (285-295); Sodium 141 mmol/L (136-145); Total Bilirubin 0.4 mg/dL (0.15-1.2)
[2024-06-03 16:21] LABS: Lactic Sepsis W/Reflex 1.1 mmol/L (0.5-2.2)
[2024-06-03] MEDS: iohexol 350 mg/mL 500 mL Btl (per mL) IV (16:53)
[2024-06-03] MEDS: LORazepam 2 mg/mL INJ 1 mL 1 MG IVP (18:29)
--- NOTE | 2024-06-03 18:42 | PC.NURSE ---
PATIENT IS IN PAIN. PATIENT BECOMES UPSET AND STATES THAT SHE DOESN'T WANT TO SEEM LIKE A DRAMA RUSSO. PATIENT STATES THAT SHE WANTS TO BE CLEANED OUT. PATIENT GIVEN THE OPTION OF DIGITAL REMOVAL OR ADMITTED AND PATIENT STATES THAT SHE WOULD LIKE TO BE ADMITTED IF POSSIBLE. PATIENT STATES THAT SHE IS VERY ANXIOUS. PROVIDER NOTIFIED OF PATIENT WISHES.
[2024-06-03] MEDS: Fleet Enema 133 mL Enema PR (19:44)
[2024-06-03] MEDS: lactulose oral liq 20 gm/30 mL UDC 30 GM PO (19:44)
[2024-06-04] VITALS (9 sets, daily range): BP systolic 94–136; BP diastolic 58–86; PULSE 80–109; RESP 16–18; TEMP 36.6–36.8; O2SAT 96–99
[2024-06-04] MEDS: naproxen 500 mg Tablet PO ×2 (00:14→21:08)
[2024-06-04] MEDS: CLONazepam 1 mg Tablet PO (01:09)
--- NOTE | 2024-06-04 01:48 | P.HP_ITS ---
Providers/Chief Complaint 2 Admitting Physician: Ronak Bain MD Primary Care Provider: BOZENA Gaitan Chief Complaint: bowl obstruction History of Present Illness Maria Esther Rust is a 24 year old female history of cerebral palsy, anxiety disorder and depressive illness and chronic constipation. Patient states that she takes MiraLAX Dulcolax and lactulose daily, however in spite of these laxatives she has been feeling constipated for the past 2 days. She has had difficulty passing bowel movements and as a result feels she has abdominal pain. She is able to pass flatus. She had 1 episode of vomiting today. No fever or chills. She was seen at [facility] recently where x-ray was concerning for possible bowel obstruction. CT of the abdomen and pelvis taken today shows large rectal and colonic stool load with rectal distention. No signs of small bowel obstruction noted. Review of Systems 2 General: Reports: 10 or more systems reviewed and unremarkable except in HPI and below Const: Denies: fever(s), chills or body aches Eyes: Denies: change in vision, blurry vision or photophobia ENMT: Reports: hoarseness; Denies: throat pain, enlarged tonsils, odynophagia or nasal congestion Card: Denies: chest pain, palpitations, irregular heart rhythm, edema, swelling of feet/ankles, lightheadedness, pre-syncope, dyspnea on exertion or orthopnea Resp: Denies: dyspnea, productive cough, non-productive cough, wheezing, stridor, pain on inspiration, change in phlegm color, hemoptysis or chest congestion GI: Denies: abdominal pain, nausea, vomiting, hematemesis, coffee ground emesis, dysphagia, heartburn, diarrhea, constipation, GI cramping, change in stool character, hematochezia or melena : Denies: flank pain, difficulty voiding, dysuria, urinary frequency, urinary urgency, urinary hesitancy or hematuria Musc: Denies: neck pain, back pain, extremity pain, joint swelling, joint warmth or deformity Neuro: Denies: headache(s), numbness in extremities, weakness in extremities, sensory changes, difficulty walking, frequent falls, dizziness, vertigo, behavioral changes, Slurred speech present or seizure-like activity Psych: Denies: anxiety, depression, suicidal ideation or homicidal ideation Endo: Denies: polyuria, polydipsia, tired all the time, cold intolerance or hot flashes Alan/Lymph: Denies: easy bruising or easy bleeding Medications/Allergies Home Medications Medication Instructions Recorded Confirmed Last Taken Type baclofen 10 mg tablet 10 mg PO DAILY 01/16/21 06/03/24 06/02/24 History clonazepam 0.5 mg tablet 0.5 mg PO BID 01/16/21 06/03/24 06/03/24 History spironolactone 50 mg tablet 50 mg PO BID 01/16/21 06/03/24 06/03/24 History Lactobacillus acidophilus and 1 cap PO DAILY 06/28/22 06/03/24 06/03/24 History rhamnosus 15 billion cell capsule (Probiotic) bisacodyl 5 mg tablet 10 mg PO DAILY PRN Constipation 06/28/22 06/03/24 06/28/22 History diphenhydramine HCl 50 mg/30 mL 50 mg PO BEDTIME PRN Sleep 06/28/22 06/03/24 Unknown History oral liquid (ZzzQuil) escitalopram oxalate 20 mg tablet 20 mg PO DAILY 06/28/22 06/03/24 06/03/24 History folic acid 20 mg capsule 20 mg PO DAILY 06/28/22 06/03/24 06/03/24 History gabapentin 600 mg tablet 600 mg PO BID #60 tabs 06/28/22 06/03/24 06/03/24 Rx hydroxyzine HCl 10 mg tablet 10 mg PO BID PRN Anxiety 06/28/22 06/03/24 Unknown History ibuprofen 200 mg tablet (Advil) 200 mg PO Q6H PRN Pain 06/28/22 06/03/24 Unknown History melatonin 5 mg tablet 5 mg PO BEDTIME PRN Sleep 06/28/22 06/03/24 Unknown History naproxen 500 mg tablet (Naprosyn) 500 mg PO BID PRN pain #20 tabs 12/03/22 06/03/24 Unknown Rx ondansetron 4 mg disintegrating 4 mg PO Q6H PRN nausea and 12/03/22 06/03/24 Unknown Rx tablet vomiting #14 tabs Allergies Allergy/AdvReac Type Severity Reaction Status Date / Time adhesive tape Allergy Intermediate ALGY-Rash Verified 03/11/24 10:35 Sulfa (Sulfonamide Allergy Intermediate ALGY-Hives Verified 03/11/24 10:35 Antibiotics) bacitracin Allergy ALGY-Rash Verified 03/11/24 10:35 [From Neosporin ([id number])] neomycin Allergy ALGY-Rash Verified 03/11/24 10:35 [From Neosporin ([id number])] polymyxin B Allergy ALGY-Rash Verified 03/11/24 10:35 [From Neosporin ([id number])] PFSH Acute 2 PFSH: Medical History Wheelchair dependence Cerebral palsy Generalized anxiety disorder Major depressive disorder, recurrent, moderate Surgical History History of ankle surgery Family History Denies family history of Colon cancer Ovarian cancer Diabetes Heart disease Hypercholesteremia Breast cancer Hypertension Uterine cancer Thyroid disease Stroke Social History Smoking and tobacco/nicotine status: never used tobacco/nicotine Vitals/I&O/Wt Last Vital Signs Temp 98.2 F 06/03/24 22:37 Pulse 109 H 06/04/24 01:00 Resp 18 06/03/24 22:37 BP 94/58 06/04/24 01:00 Pulse Ox 100 06/03/24 22:37 O2 Del Method Room Air 06/03/24 22:37 06/03/24 06/03/24 06/04/24 14:59 22:59 06:59 Intake Total 1000 / 1000 Balance 1000 / 1000 Weight last 48 hrs Weight 76.204 kg Weight 99.79 kg Physical Exam 2 Narrative: General: No acute distress, AO x3 HEENT: PERRLA, pupils bilaterally equal and reactive, pallors not present Chest: Normal vesicular breath sounds, no added sounds, equal good air entry bilaterally CVS: S1-S2 regular, no murmurs, no tachycardia, no gallops, no rubs Abdomen: Soft, mildly tender LUQ, bowel sounds present Data 06/03/24 15:40 06/03/24 15:40 Other Labs: [employer] [address] [place] [id number] Scan Report Signed Patient: Maria Esther Rust Unit #: [id number] : 2000 Age/Sex: 24 / F ADM Date: 06/03/24 Loc: ER Room/Bed: Attending Dr: Ordering Provider/Ordering MD: Radha Das MD Date of Service: 06/03/24 Procedure(s): CT abdomen pelvis w con* [id number] Accession Number(s): [id number] Report Number: [id number] PROCEDURE INFORMATION: Exam: CT Abdomen And Pelvis With Contrast Exam date and time: 06/03/2024 4:35 PM Age: 24 years old Clinical indication: Abdominal pain; Prior surgery; Surgery date: 6+ months; Surgery type: Back; Additional info: Abd pain TECHNIQUE: Imaging protocol: Computed tomography of the abdomen and pelvis with contrast. Radiation optimization: All CT scans at this facility use at least one of these dose optimization techniques: automated exposure control; mA and/or kV adjustment per patient size (includes targeted exams where dose is matched to clinical indication); or iterative reconstruction. Contrast material: OMNI 350; Contrast volume: 100 ml; Contrast route: INTRAVENOUS (IV); COMPARISON: CT abdomen pelvis wo con [id number] 04/17/2023 1:05 AM RADIATION DOSE METRICS: Total DLP (mGy-cm): 928 FINDINGS: Tubes, catheters and devices: Ta rods and screws in place. Pelvic fixation hardware in place. Lungs: The visualized portions of the lungs are unremarkable. Liver: The liver is unremarkable. Gallbladder and biliary ducts: The gallbladder is unremarkable. No biliary dilation. Pancreas: The pancreas is unremarkable. Spleen: The spleen is unremarkable. Adrenal glands: The adrenal glands are unremarkable. Kidneys and ureters: The kidneys are unremarkable. Stomach and bowel: Large rectal and colonic stool load with rectal distension. There is no bowel wall thickening. No bowel obstruction. Appendix: Appendix is not identified. No findings to suggest acute appendicitis. Intraperitoneal space: No significant peritoneal free fluid. No free peritoneal air. Vasculature: The vasculature is unremarkable. No aneurysm. Lymph nodes: No enlarged lymph nodes by size criteria. Urinary bladder: The bladder is unremarkable. Reproductive: Uterus is unremarkable. No suspicious adnexal lesion seen. Bones/joints: Mild lumbar levocurvature. Soft tissues: There is a small fat-containing umbilical hernia. CT/CT abdomen pelvis w con* [id number] IMPRESSION: 1. Large rectal and colonic stool load with rectal distension, correlate for constipation. 2. Otherwise, no acute findings. A&P Assessment and plan (1) Constipation: (2) Abdominal pain: (3) Cerebral palsy: (4) Wheelchair dependence: Plan 24-year-old lady with cerebral palsy, chronic wheelchair dependence, has issues with chronic constipation, was brought in to the emergency room today with complaints of vomiting, abdominal pain constipation. Initially as outpatient some concern for small bowel obstruction. CT of the abdomen and pelvis performed here does not show any small bowel obstruction. There is large rectal and colonic stool load with rectal distention. Patient is quite distressed about constipation. States she is able to intermittently pass flatus but does not have feeling of complete evacuation. Will admit in observation, Fleet enema given in the emergency room, will await bowel movements Start lactulose 20 g every 6 hours, titrate to 2-3 bowel movements per day. Continue home doses of baclofen, escitalopram, gabapentin Attestations 2 Medical Necessity Statement*: less than 2 midnight stay is anticipated Coding Level of Care Code Acute Code for Chg Fwd Straight Forward/Low MDM includes number and complexity of problems actively addressed during encounter, amount and/or complexity of data reviewed/ordered and described risk of complication, morbidity or mortality of management as documented Diagnoses Constipation K59.00 Abdominal pain R10.9 Cerebral palsy G80.9 Wheelchair dependence Z99.3
[2024-06-04] MEDS: enoxaparin 40 mg/0.4 mL Syringe SUBCUT (02:32)
[2024-06-04] MEDS: diphenhydrAMINE 12.5 mg/5 mL UDC 10 mL 50 MG PO ×2 (02:42→21:08)
[2024-06-04] MEDS: magnesium citrate Btl 296 mL 150 ML PO (06:26)
[2024-06-04] MEDS: gabapentin 300 mg Capsule 600 MG PO ×2 (09:01→17:22)
[2024-06-04] MEDS: escitalopram 10 mg Tablet 20 MG PO (09:01)
[2024-06-04] MEDS: lactobacillus 1 Tablet 1 TAB PO (09:01)
[2024-06-04] MEDS: pantoprazole DR 40 mg Tablet PO (09:01)
[2024-06-04] MEDS: CLONazepam 0.5 mg Tablet PO ×2 (09:01→17:23)
[2024-06-04] MEDS: ibuprofen 200 mg Tablet PO (09:07)
--- NOTE | 2024-06-04 09:57 | PC.CHAP ---
Pastoral Care Encounter/Spiritual Assessment Type of Contact [] Declined secretary receptionist visit [] Patient/Family/Request visit [] Outpatient visit [] Follow-up visit [] Physician referral [] Code/Alert [x] Routine visit [] Staff referral [] Actively dying [] Patient sleeping [] Family support [] [] Out of room [] Palliative care [] [] Receiving care in room [] Pre-surgical visit [] Trauma [] Long length of stay [] ICU visit [] Other: Relational/Emotional Strength [] Patient feels connected with others/family/visitors/staff [] Distress [] Loneliness/isolation [] Abandonment Spirituality of Patient [] Person of Cheryle [] Attends Uatsdin of their Cheryle [x] Believes in Prayer [] Reads Bible or Yazidi materials [] There are Spiritual issues to be addressed Auto Polisher Interventions [x] Prayer [x] Active listening [x] Non-anxious presence [] Spiritual/emotional support [] Crisis/trauma care [] Spiritual counseling [] Bereavement support [] Provided bereavement packet [] Provided Bible/devotional materials [] Provided toy/stuffed animal, coloring book to patient or family member [] Provided Communion [] Anointing/[place] [] Salvation [] Completed spiritual assessment [] Other: Impact on Illness or Injury [] Angry [] Fearful [] Anxious [] Often cries [] Exhaustion [] Unable to work [] Unable to attend restorationism [] Unable to walk/stand [] Unable to read [] Unable to drive [] Unable to eat/drink [] Unable to sleep [] Unable to be with family [] Patient intubated [] Other: Summary Time spent with patient 10 Min
[2024-06-04] MEDS: lactulose oral liq 20 gm/30 mL UDC PO (10:46)
--- NOTE | 2024-06-04 11:42 | P.PN_ITS ---
Subjective 2 Subjective: No acute overnight events noted. Seen her at bedside this morning, was complaining of abdominal pain earlier and received 1 dose of p.o. Motrin. She reports not being able to empty her bowels completely in spite of taking p.o. lactulose, Dulcolax, MiraLAX. Medications: Reviewed: Yes Vitals/I&O/Wt Last Vital Signs Temp 98.3 F 06/04/24 11:20 Pulse 96 06/04/24 11:20 Resp 16 06/04/24 11:20 BP 136/86 06/04/24 11:20 Pulse Ox 96 06/04/24 11:20 O2 Del Method Room Air 06/04/24 11:20 06/03/24 06/04/24 06/04/24 22:59 06:59 14:59 Intake Total 1000 / 1000 Balance 1000 / 1000 Weight last 48 hrs Weight 76.294 kg Weight 76.204 kg Weight 99.79 kg Physical Exam 2 Narrative: General: No acute distress, AO x3 HEENT: PERRLA, pupils bilaterally equal and reactive, pallors not present Chest: Normal vesicular breath sounds, no added sounds, equal good air entry bilaterally CVS: S1-S2 regular, no murmurs, no tachycardia, no gallops, no rubs Abdomen: Soft, mildly tender LUQ, bowel sounds present Data 06/03/24 15:40 06/03/24 15:40 A&P Assessment and plan (1) Constipation: (2) Abdominal pain: (3) Cerebral palsy: (4) Wheelchair dependence: Plan 24-year-old lady with cerebral palsy, chronic wheelchair dependence, has issues with chronic constipation, was brought in to the emergency room today with complaints of vomiting, abdominal pain constipation. Initially as outpatient some concern for small bowel obstruction. CT of the abdomen and pelvis performed here does not show any small bowel obstruction. There is large rectal and colonic stool load with rectal distention. Patient is quite distressed about constipation. States she is able to intermittently pass flatus but does not have feeling of complete evacuation. Will admit in observation, Fleet enema given in the emergency room, will await bowel movements Start lactulose 20 g every 6 hours, titrate to 2-3 bowel movements per day. Continue home doses of baclofen, escitalopram, gabapentin 06/04--had only small amount of stools post Fleet enema in ER. Will start lactulose this morning and monitor for bowel movements, if not we will need another dose of enema given. Admission labs reviewed and are acceptable. Attestations 2 Medical Necessity Statement*: Needs hospitalization anticipating crossing 2 midnights for severe constipation causing rectal distention. Time Spent in Patient Care: 15 minutes Coding Level of Care Code Acute Code for Chg Fwd Diagnoses Constipation K59.00 Abdominal pain R10.9 Cerebral palsy G80.9 Wheelchair dependence Z99.3 Time Spent (min) 15
[2024-06-04] MEDS: baclofen 10 mg Tablet PO (17:23)
[2024-06-05] VITALS: BP 110/72; PULSE 83; RESP 17; TEMP 37.1; O2SAT 95
[2024-06-05] MEDS: ibuprofen 200 mg Tablet PO (00:38)
[2024-06-05] MEDS: enoxaparin 40 mg/0.4 mL Syringe SUBCUT (01:43)
[2024-06-05 03:41] LABS: Basophils % 0.5 %; Eosinophils # 0.1 10^3/uL (0.0-0.8); Eosinophils % 2.1 %; Lymphocytes # 2.7 10^3/uL (0.8-4.8); Lymphocytes % 43.2 %; Mean Corpuscular HGB Conc 32.5 g/dL (30-55); Mean Corpuscular Hemoglobin 28.7 pg (27-33); Mean Corpuscular Volume 88.2 fl (85-98); Mean Platelet Volume 10.6 fL (7.4-10.4); Monocytes # 0.5 10^3/uL (0.2-0.9); Monocytes % 7.2 %; Neutrophils # 2.91 10^3/uL (1.8-7.7); Neutrophils % 46.8 %; Nucleated Red Blood Cells % 0 %; Platelet Count 161 10^3/cmm (157-399); Red Blood Count 4.08 10^6/uL (3.85-5.65); Red Cell Distribution Width 13.2 % (12.1-15.1); White Blood Count 6.21 10^3/uL (3.29-11.43)
[2024-06-05 04:00] LABS: Alanine Aminotransferase 8 U/L (0-33); Albumin Level 3.9 g/dL (3.5-5.2); Alkaline Phosphatase 107 U/L (35-105); Anion Gap 15.9 (5-19); Aspartate Amino Transferase 16 U/L (0-32); Blood Urea Nitrogen 5 mg/dL (6-20); Calcium 8.7 mg/dL (8.5-10.5); Carbon Dioxide 22 mmol/L (22-29); Chloride 104 mmol/L (98-107); Globulin 2.6 g/dL (1.3-4.6); Glomerular Filtration Rate 194.5 mL/min (90-130); Glucose 65 mg/dL (65-115); Osmolality Calculated 281 mOsm/kg (285-295); Potassium 3.9 mmol/L (3.5-5.1); Sodium 138 mmol/L (136-145); Total Bilirubin 0.5 mg/dL (0.15-1.2); Total Protein 6.5 g/dL (6.6-8.7)
[2024-06-05 05:04] VITALS: PULSE 78
[2024-06-05 08:00] VITALS: BP 118/75; PULSE 78; PULSE 90; RESP 16; TEMP 36.4; O2SAT 94; O2SAT 98
[2024-06-05] MEDS: lactobacillus 1 Tablet 1 TAB PO (09:45)
[2024-06-05] MEDS: CLONazepam 0.5 mg Tablet PO (09:45)
[2024-06-05] MEDS: gabapentin 300 mg Capsule 600 MG PO (09:45)
[2024-06-05] MEDS: escitalopram 10 mg Tablet 20 MG PO (09:45)
[2024-06-05] MEDS: baclofen 10 mg Tablet PO (09:45)
[2024-06-05] MEDS: pantoprazole DR 40 mg Tablet PO (09:46)
--- NOTE | 2024-06-05 10:25 | P.DS_ITS ---
Discharge Providers Date of Admission: 06/03/24 20:30 Date of Discharge: June 05, 2024 Attending Provider at Admission: Ronak Bain MD Attending Provider at Discharge: Yodit Ackerman MD Primary Care Provider: BOZENA Gaitan Diagnoses at Discharge Discharge Diagnosis (1) Constipation: Status: Acute (2) Abdominal pain: Status: Acute (3) Cerebral palsy: Status: Acute (4) Wheelchair dependence: Status: Acute Reason for Visit Reason for Visit: bowl obstruction Brief History: Maria Esther Rsut is a 24 year old female history of cerebral palsy, anxiety disorder and depressive illness and chronic constipation. Patient states that she takes MiraLAX Dulcolax and lactulose daily, however in spite of these laxatives she has been feeling constipated for the past 2 days. She has had difficulty passing bowel movements and as a result feels she has abdominal pain. She is able to pass flatus. She had 1 episode of vomiting today. No fever or chills. She was seen at [facility] recently where x-ray was concerning for possible bowel obstruction. CT of the abdomen and pelvis taken today shows large rectal and colonic stool load with rectal distention. No signs of small bowel obstruction noted. Hospital Course Hospital Course 24-year-old lady with cerebral palsy, chronic wheelchair dependence, has issues with chronic constipation, was brought in to the emergency room today with complaints of vomiting, abdominal pain constipation. Initially as outpatient some concern for small bowel obstruction. CT of the abdomen and pelvis performed here does not show any small bowel obstruction. There is large rectal and colonic stool load with rectal distention. Patient is quite distressed about constipation. States she is able to intermittently pass flatus but does not have feeling of complete evacuation. Will admit in observation, Fleet enema given in the emergency room, will await bowel movements Start lactulose 20 g every 6 hours, titrate to 2-3 bowel movements per day. Continue home doses of baclofen, escitalopram, gabapentin 06/04--had only small amount of stools post Fleet enema in ER. Will start lactulose this morning and monitor for bowel movements, if not we will need another dose of enema given. Admission labs reviewed and are acceptable. 06/05-She had multiple bowel movements overnight with po lactulose. She feels better and denies any abdominal pain. will d/c her today with bowel regimen. Physical Exam Narrative: General: No acute distress, AO x3 HEENT: PERRLA, pupils bilaterally equal and reactive, pallors not present Chest: Normal vesicular breath sounds, no added sounds, equal good air entry bilaterally CVS: S1-S2 regular, no murmurs, no tachycardia, no gallops, no rubs Abdomen: Soft, mildly tender LUQ, bowel sounds present Discharge Data Studies Completed and Pending Completed Studies During Hospitalization Category Date Time Status CT abdomen pelvis w con* [id number] Stat Cat Scan 06/03/24 15:13 Completed Radiology Impressions Abdomen/Pelvis CT 06/03/24 15:13 IMPRESSION: 1. Large rectal and colonic stool load with rectal distension, correlate for constipation. 2. Otherwise, no acute findings. Laboratory Results WBC 6.21 10^3/uL (3.29-11.43) 06/05/24 03:04 RBC 4.08 10^6/uL (3.85-5.65) 06/05/24 03:04 Hgb 11.70 g/dL (11.27-16.99) 06/05/24 03:04 Hct 36.0 % (36-47) 06/05/24 03:04 MCV 88.2 fl (85-98) 06/05/24 03:04 MCH 28.7 pg (27-33) 06/05/24 03:04 MCHC 32.5 g/dL (30-55) 06/05/24 03:04 RDW 13.2 % (12.1-15.1) 06/05/24 03:04 Plt Count 161 10^3/cmm (157-399) 06/05/24 03:04 MPV 10.6 fL (7.4-10.4) H 06/05/24 03:04 Neut % (Auto) 46.8 % 06/05/24 03:04 Lymph % (Auto) 43.2 % 06/05/24 03:04 Mineral % (Auto) 7.2 % 06/05/24 03:04 Eos % (Auto) 2.1 % 06/05/24 03:04 Baso % (Auto) 0.5 % 06/05/24 03:04 Neut # (Auto) 2.91 10^3/uL (1.8-7.7) 06/05/24 03:04 Lymph # (Auto) 2.7 10^3/uL (0.8-4.8) 06/05/24 03:04 Mineral # (Auto) 0.5 10^3/uL (0.2-0.9) 06/05/24 03:04 Eos # (Auto) 0.1 10^3/uL (0.0-0.8) 06/05/24 03:04 Baso # (Auto) 0.0 10^3/uL (0.0-0.1) 06/05/24 03:04 Nucleated RBC % (auto) 0 % 06/05/24 03:04 Nucleated RBCs # 0.0 /100WBC 06/05/24 03:04 Sodium 138 mmol/L (136-145) 06/05/24 03:04 Potassium 3.9 mmol/L (3.5-5.1) 06/05/24 03:04 Chloride 104 mmol/L (98-107) 06/05/24 03:04 Carbon Dioxide 22 mmol/L (22-29) 06/05/24 03:04 Anion Gap 15.9 (5-19) 06/05/24 03:04 BUN 5 mg/dL (6-20) L 06/05/24 03:04 Creatinine 0.4 mg/dL (0.5-0.9) L 06/05/24 03:04 GFR Calculation 194.5 mL/min (90-130) H 06/05/24 03:04 Glucose 65 mg/dL (65-115) 06/05/24 03:04 Calculated Osmolality 281 mOsm/kg (285-295) L 06/05/24 03:04 Lactic Acid 1.1 mmol/L (0.5-2.2) 06/03/24 15:40 Calcium 8.7 mg/dL (8.5-10.5) 06/05/24 03:04 Total Bilirubin 0.5 mg/dL (0.15-1.2) 06/05/24 03:04 AST 16 U/L (0-32) 06/05/24 03:04 ALT 8 U/L (0-33) 06/05/24 03:04 Alkaline Phosphatase 107 U/L (35-105) H 06/05/24 03:04 Total Protein 6.5 g/dL (6.6-8.7) L 06/05/24 03:04 Albumin 3.9 g/dL (3.5-5.2) 06/05/24 03:04 Globulin 2.6 g/dL (1.3-4.6) 06/05/24 03:04 Lipase 35 U/L (13-60) 06/03/24 15:40 HCG, Qual Negative (Negative) 06/03/24 15:40 Vitals Last Vital Signs Temp 97.5 F L 06/05/24 08:00 Pulse 90 06/05/24 08:00 Resp 16 06/05/24 08:00 BP 118/75 06/05/24 08:00 Pulse Ox 94 06/05/24 08:00 O2 Del Method Room Air 06/05/24 08:00 Discharge Plan Discharge Patient Disposition: Home Condition: Stable Prescriptions: New pantoprazole 40 mg Tablet,Delayed Release (Dr/Ec) 40 mg PO DAILY 30 Days Qty: 30 0RF lactulose 20 gram/30 mL Solution 20 g PO 2XD 7 Days Qty: 280 0RF polyethylene glycol 3350 [Miralax] 17 gram powder in packet 17 g PO BID Qty: 14 0RF Continued baclofen 10 mg tablet 10 mg PO DAILY clonazepam 0.5 mg tablet 0.5 mg PO BID Rx Instructions: Take one half in AM & one at HS. spironolactone 50 mg tablet 50 mg PO BID folic acid 20 mg Capsule 20 mg PO DAILY ibuprofen [Advil] 200 mg Tablet 200 mg PO Q6H PRN (Reason: Pain) hydroxyzine HCl 10 mg tablet 10 mg PO BID PRN (Reason: Anxiety) bisacodyl 5 mg Tablet 10 mg PO DAILY PRN (Reason: Constipation) escitalopram oxalate 20 mg tablet 20 mg PO DAILY melatonin 5 mg Tablet 5 mg PO BEDTIME PRN (Reason: Sleep) ZzzQuil 50 mg/30 mL Liquid 50 mg PO BEDTIME PRN (Reason: Sleep) Probiotic 15 billion cell Capsule 1 cap PO DAILY gabapentin 600 mg tablet 600 mg PO BID Qty: 60 0RF naproxen [Naprosyn] 500 mg tablet 500 mg PO BID PRN (Reason: pain) Qty: 20 0RF ondansetron 4 mg tablet,disintegrating 4 mg PO Q6H PRN (Reason: nausea and vomiting) Qty: 14 0RF Discharge Orders: Discharge Order (Routine); Ordered 06/05/24 Ordered By: Yodit Ackerman Referrals: Carolyn Rosales FNP [Primary Care Provider] - 4-7 days Discharge Diet: Regular Discharge Activity: Increase activity as tolerated Patient Instructions: Constipation (ED), Abdominal Pain (ED), Opioid Safety Discharge Attestations Time Spent in Discharge Care*: less than 30 min Quality Metrics Clinical Quality Measures [ No reported AMI, CVA or VTE this stay] Coding Level of Care Code Acute Code for Chg Fwd Diagnoses Constipation K59.00 Abdominal pain R10.9 Cerebral palsy G80.9 Wheelchair dependence Z99.3 Time Spent (min) 15
[2024-06-05 13:51] VITALS: BP 118/75; PULSE 90; RESP 16; TEMP 36.4; O2SAT 94
== END 2024-06-05 13:52 | disposition home or self-care (01) ==
LOC: ER 19:33 → MEDSURG 20:30
PROVIDERS: Student in an Organized Health Care Education/Training Program; Admitting Provider Student in an Organized Health Care Education/Training Program; Emergency Provider Emergency Medicine; PCP Nurse Practitioner; Visit Provider Internal Medicine
DX: K59.09 Other constipation (principal); G80.9 Cerebral palsy, unspecified; Z79.899 Other long term (current) drug therapy; Z88.1 Allergy status to other antibiotic agents; Z88.2 Allergy status to sulfonamides; Z99.3 Dependence on wheelchair; F41.1 Generalized anxiety disorder; F33.9 Major depressive disorder, recurrent, unspecified
CPT/HCPCS: 36415; 74177; 80053; 83605; 83690; 84703; 85025; 96372; 96374; 96375; 96376; 99285; G0378; J1650; J2060; J2270; J2405; J7030

== ENCOUNTER 2024-06-24 10:19 | Outpatient (CLI) | payer MEDICARE, MEDICAID, SELFPAY ==
--- NOTE | 2024-06-24 10:32 | XR_ITS ---
WS: [id number] Exam: XR abdomen min 2V [id number] Date/Time of Exam: 06/24/2024 10:40 AM Reason For Exam: lower abdominal pain, other constipation No bowel obstruction or free air. Mild ileus. Moderate amount of stool retention in the LEFT colon. N o sign of organ enlargement. Extensive thoracolumbar fusion hardware in place. Hardware also noted in the RIGHT and LEFT pelvis. XR/XR abdomen min 2V [id number] IMPRESSION: 1. Mild ileus. No acute abdominal process. 2. Extensive hardware in the thoracic, lumbar and sacral spine. Hardware also n oted in the pelvis.
== END 2024-06-24 10:20 | disposition home or self-care (01) ==
LOC: RAD 10:22
PROVIDERS: PCP Nurse Practitioner; Visit Provider Nurse Practitioner
DX: K59.00 Constipation, unspecified (principal); R10.30 Lower abdominal pain, unspecified; M43.25 Fusion of spine, thoracolumbar region
CPT/HCPCS: 74019

== ENCOUNTER 2024-08-12 19:26 | Emergency (ER) | payer MEDICARE, MEDICAID, SELFPAY ==
--- NOTE | 2024-08-12 19:33 | ECG_ITS ---
[email or web address] Test Date: 2024-08-12 Pat Name: Maria Esther Rust Department: Room: Gender: Female Jack Setter: : 2000 Requested By: Zeb Ramirez Order Number: [id number] Atkins MD: Trey Kc M.D. Measurements Intervals [place] Rate: 109 P: 63 CA: 113 QRS: 59 QRSD: 90 T: 1 QT: 322 QTc: 434 Interpretive Statements SINUS TACHYCARDIA WITH SHORT CA INTERVAL NONSPECIFIC ST & T-WAVE ABNORMALITY Compared to ECG 07/08/2023 12:40:35 Short CA interval now present T-wave abnormality now present Sinus rhythm no longer present Electronically Signed On 08-13-2024 09:30:42 [employer] by Trey Kc M.D. [id number]
[2024-08-12 19:39] VITALS: BP 130/92; PULSE 101; RESP 20; O2SAT 97; BMI 29.4
--- NOTE | 2024-08-12 19:43 | XRR_ITS ---
PROCEDURE INFORMATION: Exam: XR Chest Exam date and time: 08/12/2024 8:15 PM Age: 24 years old Clinical indication: Pain; Chest pressure; Prior surgery; Surgery date: 6+ months; Surgery type: Spinal fusions; Additional info: Chest pain TECHNIQUE: Imaging protocol: Radiologic exam of the chest. Views: 1 view. COMPARISON: CR XR chest 1V portable [id number] 04/16/2023 9:50 PM FINDINGS: Lungs: Generalized decreased inspiration with low lung volumes. No infiltrate or consolidation. Pulmonary vascularity is within normal limits. Pleural spaces: No pleural effusion or pneumothorax. Heart/Mediastinum: No cardiomegaly. Bones/joints: Ta rods within the thoracic and visualized lumbar spine, as noted with prior exam. Gastrointestinal tract: Mild nonspecific increased bowel gas within the visualized abdomen. XR/XR chest 1V portable [id number] IMPRESSION: Decreased inspiration, without acute cardiopulmonary abnormality.
[2024-08-12 20:43] VITALS: BP 129/94; PULSE 142; RESP 16; O2SAT 99
--- NOTE | 2024-08-12 20:48 | XRR_ITS ---
PROCEDURE INFORMATION: Exam: XR Abdomen Exam date and time: 08/12/2024 9:27 PM Age: 24 years old Clinical indication: Bloating and constipation; Prior surgery; Surgery date: 6+ months; Surgery type: Back; Additional info: Abd pain, constipation, HX of sbo TECHNIQUE: Imaging protocol: Radiologic exam of the abdomen. Views: Frontal supine view of the abdomen. 1 View. COMPARISON: CR XR abdomen min 2V [id number] 06/24/2024 10:41 AM FINDINGS: Gastrointestinal tract: Nonspecific generalized increased bowel gas without significant small bowel dilatation. Gas is seen within the rectum. Mild scattered stool in the colon. Appearance suggestive of ileus type pattern. No findings to indicate obstruction. Intraperitoneal space: No indication of free air. No abnormal calcifications are seen. Bones/joints: Ta rods noted within the visualized thoracic and lumbosacral spine as well as postsurgical hardware with screws SI joint level bilaterally. XR/XR abdomen 1V* [id number] IMPRESSION: Nonspecific generalized increased bowel gas. No small bowel dilatation or obstruction. Appearance suggest ileus type pattern. Postsurgical hardware visualized thoracic and lumbosacral spine, as well as upper pelvis.
[2024-08-12 21:01] LABS: Troponin(5th) Baseline < 6 ng/L (0-10)
[2024-08-12 21:28] LABS: Basophils % 0.3 %; Eosinophils # 0.1 10^3/uL (0.0-0.8); Eosinophils % 0.8 %; Hematocrit 42.8 % (36-47); Lymphocytes # 1.8 10^3/uL (0.8-4.8); Lymphocytes % 19.8 %; Mean Corpuscular HGB Conc 32.2 g/dL (30-55); Mean Corpuscular Hemoglobin 29.1 pg (27-33); Mean Corpuscular Volume 90.1 fl (85-98); Mean Platelet Volume 10.4 fL (7.4-10.4); Monocytes # 0.5 10^3/uL (0.2-0.9); Neutrophils # 6.59 10^3/uL (1.8-7.7); Neutrophils % 73.8 %; Nucleated Red Blood Cells % 0 %; Platelet Count 201 10^3/cmm (157-399); Red Blood Count 4.75 10^6/uL (3.85-5.65); Red Cell Distribution Width 13.1 % (12.1-15.1); White Blood Count 8.94 10^3/uL (3.29-11.43)
--- NOTE | 2024-08-12 21:42 | ECG_ITS ---
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 Measurements Intervals [place] Rate: 98 P: 58 KS: 108 QRS: 55 QRSD: 94 T: 27 QT: 347 QTc: 444 Interpretive Statements SINUS RHYTHM WITH SHORT KS INTERVAL Compared to ECG 07/08/2023 12:40:35 Short KS interval now present Electronically Signed On 08-13-2024 22:07:57 LOADER [employer] by Trey Kc M.D. [id number]
--- NOTE | 2024-08-12 21:46 | ED_ITS ---
HPI - Chest Pain 2 General: Chief Complaint: Chest Pain Stated Complaint: chest pain Time Seen by Provider: 08/12/24 20:04 History of Present Illness: Patient presents to the ER with complaints of abdominal pain due to chronic constipation and chest pain. Patient says she is feels like she is not having bowel movements as normal. She did go multiple days without a bowel movement but has been having bowel movements last several days but just not enough. She feels that she is backed up and is causing her chest pain. Patient does have a history of a small bowel obstruction and was in the hospital not too long ago for this. Patient has extensive cerebral palsy but is alert oriented coherent. Patient told nursing that she is on multiple bowel regiment medicines but has not been taking them routinely secondary to insurance not paying for them here recently. Related Data Home Medications Medication Instructions Recorded Confirmed baclofen 10 mg tablet 10 mg PO DAILY 01/16/21 06/03/24 clonazepam 0.5 mg tablet 0.5 mg PO BID 01/16/21 06/03/24 spironolactone 50 mg tablet 50 mg PO BID 01/16/21 06/03/24 Lactobacillus acidophilus and 1 cap PO DAILY 06/28/22 06/03/24 rhamnosus 15 billion cell capsule (Probiotic) bisacodyl 5 mg tablet 10 mg PO DAILY PRN Constipation 06/28/22 06/03/24 diphenhydramine HCl 50 mg/30 mL 50 mg PO BEDTIME PRN Sleep 06/28/22 06/03/24 oral liquid (ZzzQuil) escitalopram oxalate 20 mg tablet 20 mg PO DAILY 06/28/22 06/03/24 folic acid 20 mg capsule 20 mg PO DAILY 06/28/22 06/03/24 hydroxyzine HCl 10 mg tablet 10 mg PO BID PRN Anxiety 06/28/22 06/03/24 ibuprofen 200 mg tablet (Advil) 200 mg PO Q6H PRN Pain 06/28/22 06/03/24 melatonin 5 mg tablet 5 mg PO BEDTIME PRN Sleep 06/28/22 06/03/24 Previous Rx's Medication Instructions Recorded gabapentin 600 mg tablet 600 mg PO BID #60 tabs 06/28/22 naproxen 500 mg tablet (Naprosyn) 500 mg PO BID PRN pain #20 tabs 12/03/22 ondansetron 4 mg disintegrating 4 mg PO Q6H PRN nausea and 12/03/22 tablet vomiting #14 tabs polyethylene glycol 3350 17 gram 17 g PO BID #14 ea 06/05/24 oral powder packet (Miralax) Allergies Allergy/AdvReac Type Severity Reaction Status Date / Time adhesive tape Allergy Intermediate ALGY-Rash Verified 03/11/24 10:35 Sulfa (Sulfonamide Allergy Intermediate ALGY-Hives Verified 03/11/24 10:35 Antibiotics) bacitracin Allergy ALGY-Rash Verified 03/11/24 10:35 [From Neosporin ([id number])] neomycin Allergy ALGY-Rash Verified 03/11/24 10:35 [From Neosporin ([id number])] polymyxin B Allergy ALGY-Rash Verified 03/11/24 10:35 [From Neosporin ([id number])] Review of Systems 2 General: Reports: 10 or more systems reviewed and unremarkable except in HPI and below PFSH ED 2 PFSH: Medical History Wheelchair dependence Cerebral palsy Generalized anxiety disorder Major depressive disorder, recurrent, moderate Surgical History History of ankle surgery Family History Denies family history of Colon cancer Ovarian cancer Diabetes Heart disease Hypercholesteremia Breast cancer Hypertension Uterine cancer Thyroid disease Stroke Social History Smoking and tobacco/nicotine status: never used tobacco/nicotine Physical Exam 2 Const: COMMON NORMALS: no acute distress, average body habitus, patient oriented x3, no limitations, healthy appearing, alert and well nourished Neck/C-Spine: COMMON NORMALS: no JVD Chest: COMMONS NORMALS: normal inspection of the chest and normal palpation of entire chest wall Resp: COMMON NORMALS: normal respiratory effort, No retractions, No use of accessory muscles and clear to auscultation bilaterally AUSCULTATION: clear to auscultation bilaterally Cardio: COMMON NORMALS: no JVD, regular rate, regular rhythm, S1 normal heart sound present, S2 normal heart sound present, No gallops present (Cardio), No clicks present (Cardio) and No murmurs present (Cardio) RATE: regular rate RHYTHM: regular rhythm HEART SOUNDS: S1 normal heart sound present and S2 normal heart sound present GI: COMMON NORMALS: Normal to inspection, nondistended, normoactive bowel sounds present, Soft to palpation, No hepatosplenomegaly present and no masses; negative for non-tender (Mildly diffusely tender) PALPATION: Yes Soft to palpation and Yes No hepatosplenomegaly present Neuro: COMMON NORMALS: patient oriented x3 SENSORIUM/ORIENTATION: Yes alert Course 2 Vital Signs: Vital signs: Vital Signs Temperature 97.3 F L 08/12/24 22:08 Pulse Rate 101 H 08/12/24 22:08 Respiratory Rate 18 08/12/24 22:08 Blood Pressure 128/80 08/12/24 22:08 Pulse Oximetry 98 08/12/24 22:08 Oxygen Delivery Me thod Room Air 08/12/24 22:08 MDM - Chest Pain Medical Decision Making Lab work was unremarkable, chest x-ray and abdominal x-ray unremarkable did not show any evidence of bowel obstruction. Patient is given a soapsuds enema with results. Patient be discharged home to increase her bowel prep regimen. Medical Records I reviewed the patient's medical records. Lab Data I reviewed the patient's lab results. 08/12/24 21:02 08/12/24 21:20 Radiology Impressions Chest X-Ray 08/12/24 19:43 IMPRESSION: Decreased inspiration, without acute cardiopulmonary abnormality. Abdomen X-Ray 08/12/24 20:48 IMPRESSION: Nonspecific generalized increased bowel gas. No small bowel dilatation or obstruction. Appearance suggest ileus type pattern. Postsurgical hardware visualized thoracic and lumbosacral spine, as well as upper pelvis. Laboratory Results WBC 8.94 10^3/uL (3.29-11.43) 08/12/24 21:02 RBC 4.75 10^6/uL (3.85-5.65) 08/12/24 21:02 Hgb 13.80 g/dL (11.27-16.99) 08/12/24 21:02 Hct 42.8 % (36-47) 08/12/24 21: MCV 90.1 fl (85-98) 08/12/24 21: MCH 29.1 pg (27-33) 08/12/24 21:02 MCHC 32.2 g/dL (30-55) 08/12/24 21:02 RDW 13.1 % (12.1-15.1) 08/12/24 21:02 Plt Count 201 10^3/cmm (157-399) 08/12/24 21:02 MPV 10.4 fL (7.4-10.4) 08/12/24 21:02 Neut % (Auto) 73.8 % 08/12/24 21:02 Lymph % (Auto) 19.8 % 08/12/24 21:02 [place] % (Auto) 5.0 % 08/12/24 21:02 Eos % (Auto) 0.8 % 08/12/24 21:02 Baso % (Auto) 0.3 % 08/12/24 21:02 Neut # (Auto) 6.59 10^3/uL (1.8-7.7) 08/12/24 21:02 Lymph # (Auto) 1.8 10^3/uL (0.8-4.8) 08/12/24 21:02 [place] # (Auto) 0.5 10^3/uL (0.2-0.9) 08/12/24 21:02 Eos # (Auto) 0.1 10^3/uL (0.0-0.8) 08/12/24 21:02 Baso # (Auto) 0.0 10^3/uL (0.0-0.1) 08/12/24 21:02 Nucleated RBC % (auto) 0 % 08/12/24 21:02 Nucleated RBCs # 0.0 /100WBC 08/12/24 21:02 Sodium 137 mmol/L (136-145) 08/12/24 21:20 Potassium 4.5 mmol/L (3.5-5.1) 08/12/24 21:20 Chloride 102 mmol/L (98-107) 08/12/24 21:20 Carbon Dioxide 21 mmol/L (22-29) L 08/12/24 21:20 Anion Gap 18.5 (5-19) 08/12/24 21:20 BUN 6 mg/dL (6-20) 08/12/24 21:20 Creatinine 0.4 mg/dL (0.5-0.9) L 12/12/24 21:20 GFR Calculation 194.5 mL/min (90-130) H 08/12/24 21:20 Glucose 96 mg/dL (65-115) 08/12/24 21:20 Calculated Osmolality 281 mOsm/kg (285-295) L 08/12/24 21:20 Calcium 9.6 mg/dL (8.5-10.5) 08/12/24 21:20 Total Bilirubin 0.4 mg/dL (0.15-1.2) 08/12/24 21:20 AST 15 U/L (0-32) 08/12/24 21:20 ALT 11 U/L (0-33) 08/12/24 21:20 Alkaline Phosphatase 150 U/L (35-105) H 08/12/24 21:20 Troponin T Baseline < 6 ng/L (0-10) 08/12/24 20:27 Troponin T 120 Minute 6.00 ng/L (0-10) 08/12/24 22:34 Delta Troponin T 0.61288 ABS# (0-10) 08/12/24 22:34 Total Protein 7.6 g/dL (6.6-8.7) 08/12/24 21:20 Albumin 4.2 g/dL (3.5-5.2) 08/12/24 21:20 Globulin 3.4 g/dL (1.3-4.6) 08/12/24 21:20 All radiology interpretation(s) finalized by discharge Discharge Plan Discharge Patient Disposition: Home Clinical Impression: Constipation Qualifiers: Constipation type: unspecified constipation type Qualified Code(s): K59.00 - Constipation, unspecified Condition: Stable Prescriptions: No Action baclofen 10 mg tablet 10 mg PO DAILY clonazepam 0.5 mg tablet 0.5 mg PO BID Rx Instructions: Take one half in AM & one at HS. spironolactone 50 mg tablet 50 mg PO BID folic acid 20 mg Capsule 20 mg PO DAILY ibuprofen [Advil] 200 mg Tablet 200 mg PO Q6H PRN (Reason: Pain) hydroxyzine HCl 10 mg tablet 10 mg PO BID PRN (Reason: Anxiety) bisacodyl 5 mg Tablet 10 mg PO DAILY PRN (Reason: Constipation) escitalopram oxalate 20 mg tablet 20 mg PO DAILY melatonin 5 mg Tablet 5 mg PO BEDTIME PRN (Reason: Sleep) ZzzQuil 50 mg/30 mL Liquid 50 mg PO BEDTIME PRN (Reason: Sleep) Probiotic 15 billion cell Capsule 1 cap PO DAILY gabapentin 600 mg tablet 600 mg PO BID Qty: 60 0RF polyethylene glycol 3350 [Miralax] 17 gram powder in packet 17 g PO BID Qty: 14 0RF naproxen [Naprosyn] 500 mg tablet 500 mg PO BID PRN (Reason: pain) Qty: 20 0RF ondansetron 4 mg tablet,disintegrating 4 mg PO Q6H PRN (Reason: nausea and vomiting) Qty: 14 0RF Discharge Orders: Discharge ED (Routine); Ordered 08/12/24 Ordered By: Zeb Ramirez Referrals: Carolyn Rosales FNP [Primary Care Provider] - 1 week Patient Instructions: Constipation (ED) Activity Restrictions/Additional Instructions: Please increase your bowel medicine regimen and use it daily as directed. This will help prevent your constipation. Your evaluation in the ER was unremarkable and included lab work, x-rays, EKG, please follow-up with your family proximal physician in the next 7 days for further evaluation treatment as needed. Coding Level of Care Code ED Pbx Supervisor for Atif Woodard
[2024-08-12 21:59] LABS: Alanine Aminotransferase 11 U/L (0-33); Albumin Level 4.2 g/dL (3.5-5.2); Aspartate Amino Transferase 15 U/L (0-32); Blood Urea Nitrogen 6 mg/dL (6-20); Calcium 9.6 mg/dL (8.5-10.5); Chloride 102 mmol/L (98-107); Creatinine Clr Calc Pharmacy 208.9352; Globulin 3.4 g/dL (1.3-4.6); Glomerular Filtration Rate 194.5 mL/min (90-130); Glucose 96 mg/dL (65-115); Osmolality Calculated 281 mOsm/kg (285-295); Potassium 4.5 mmol/L (3.5-5.1); Sodium 137 mmol/L (136-145); Total Bilirubin 0.4 mg/dL (0.15-1.2); Total Protein 7.6 g/dL (6.6-8.7)
[2024-08-12] MEDS: propranolol 20 mg Tablet 60 MG PO (22:02)
[2024-08-12] MEDS: baclofen 10 mg Tablet PO (22:03)
[2024-08-12] MEDS: CLONazepam 0.5 mg Tablet PO (22:03)
[2024-08-12 22:08] VITALS: BP 128/80; PULSE 101; RESP 18; TEMP 36.3; O2SAT 98
[2024-08-12 23:08] LABS: Alkaline Phosphatase 150 U/L (35-105); Anion Gap 18.5 (5-19); Carbon Dioxide 21 mmol/L (22-29)
[2024-08-12 23:09] LABS: Troponin 5 2HR Delta 0.00001 ABS# (0-10)
[2024-08-12 23:30] VITALS: BP 146/87; PULSE 106; O2SAT 97
[2024-08-13 01:35] VITALS: BP 103/51; PULSE 90; RESP 18; O2SAT 100
== END 2024-08-13 01:37 | disposition home or self-care (01) ==
PROVIDERS: Emergency Provider Emergency Medicine; PCP Nurse Practitioner
DX: K59.00 Constipation, unspecified (principal)
CPT/HCPCS: 36415; 71045; 74018; 80053; 84484; 85025; 93005; 99285

== ENCOUNTER 2024-08-31 20:38 | Emergency (ER) | payer MEDICARE, MEDICAID, SELFPAY ==
[2024-08-31 20:47] VITALS: BP 151/119; PULSE 114; RESP 18; TEMP 36.4; O2SAT 96
--- NOTE | 2024-08-31 21:10 | ED_ITS ---
HPI - Abdominal Pain 2 General: Chief Complaint: Abdominal Pain Stated Complaint: abd pain, diarrhea Time Seen by Provider: 08/31/24 20:47 Source: patient and other (care staff) Mode of arrival: wheelchair Limitations: no limitations History of Present Illness: Patient is a 24-year-old female with a history of cerebral palsy and is wheelchair-bound here for complaints of abdominal pain and diarrhea. She is accompanied by two of her care staff. Patient has a history of constipation. She is on daily bowel preps for this including lactulose and miralax and she uses dulcolax prn. Patient has been seen here at our facility a few times related to the constipation. She does report she had her lactulose recently increased. Patient is concerned as she is having large-volume looser stool. She describes it as diarrhea however her care staff states it is formed mushy stool. Patient states she is having some stool leakage. She is reporting diffuse abdominal pain. She fears it could be her gallbladder or appendix. She is not running fevers. She states she has appointment with GI in [place] scheduled within the next 1-2 weeks but might have to reschedule due to a conflicting appointment. MD elicited complaint: abdominal pain Pertinent past history: constipation Onset (ago): day(s) Pain Consistency: constant Location: Diffuse Severity: moderate Radiation: none Migration to: no migration Exacerbating factors: nothing Associated Symptoms: Reports bloating, constipation, GI cramping, diarrhea and fecal incontinence; Denies belching, chills, dysuria, fever(s), hematochezia, melena, nausea and vomiting Related Data Home Medications Medication Instructions Recorded Confirmed baclofen 10 mg tablet 10 mg PO DAILY 01/16/21 06/03/24 clonazepam 0.5 mg tablet 0.5 mg PO BID 01/16/21 06/03/24 spironolactone 50 mg tablet 50 mg PO BID 01/16/21 06/03/24 Lactobacillus acidophilus and 1 cap PO DAILY 06/28/22 06/03/24 rhamnosus 15 billion cell capsule (Probiotic) bisacodyl 5 mg tablet 10 mg PO DAILY PRN Constipation 06/28/22 06/03/24 diphenhydramine HCl 50 mg/30 mL 50 mg PO BEDTIME PRN Sleep 06/28/22 06/03/24 oral liquid (ZzzQuil) escitalopram oxalate 20 mg tablet 20 mg PO DAILY 06/28/22 06/03/24 folic acid 20 mg capsule 20 mg PO DAILY 06/28/22 06/03/24 hydroxyzine HCl 10 mg tablet 10 mg PO BID PRN Anxiety 06/28/22 06/03/24 ibuprofen 200 mg tablet (Advil) 200 mg PO Q6H PRN Pain 06/28/22 06/03/24 melatonin 5 mg tablet 5 mg PO BEDTIME PRN Sleep 06/28/22 06/03/24 Previous Rx's Medication Instructions Recorded gabapentin 600 mg tablet 600 mg PO BID #60 tabs 06/28/22 naproxen 500 mg tablet (Naprosyn) 500 mg PO BID PRN pain #20 tabs 12/03/22 ondansetron 4 mg disintegrating 4 mg PO Q6H PRN nausea and 12/03/22 tablet vomiting #14 tabs polyethylene glycol 3350 17 gram 17 g PO BID #14 ea 06/05/24 oral powder packet (Miralax) Allergies Allergy/AdvReac Type Severity Reaction Status Date / Time adhesive tape Allergy Intermediate ALGY-Rash Verified 03/11/24 10:35 Sulfa (Sulfonamide Allergy Intermediate ALGY-Hives Verified 03/11/24 10:35 Antibiotics) bacitracin Allergy ALGY-Rash Verified 03/11/24 10:35 [From Neosporin ([id number])] neomycin Allergy ALGY-Rash Verified 03/11/24 10:35 [From Neosporin ([id number])] polymyxin B Allergy ALGY-Rash Verified 03/11/24 10:35 [From Neosporin ([id number])] Review of Systems 2 Const: Denies: fever(s), chills, body aches, fatigue or malaise Card: Denies: chest pain Resp: Denies: dyspnea GI: Reports: abdominal pain, diarrhea, constipation, bloating, GI cramping and fecal incontinence; Denies: nausea, vomiting, early satiety, belching, rectal pain, hematochezia, melena, mucus in stool or white/light colored stool : Denies: flank pain or dysuria Musc: Denies: neck pain, back pain, extremity pain, joint pain or joint swelling Skin/Breast: Denies: rash Neuro: Denies: headache(s) or dizziness PFSH ED 2 PFSH: Medical History Wheelchair dependence Cerebral palsy Generalized anxiety disorder Major depressive disorder, recurrent, moderate Surgical History History of ankle surgery Family History Denies family history of Colon cancer Ovarian cancer Diabetes Heart disease Hypercholesteremia Breast cancer Hypertension Uterine cancer Thyroid disease Stroke Social History Smoking and tobacco/nicotine status: never used tobacco/nicotine Physical Exam 2 Const: COMMON NORMALS: no acute distress, no limitations, alert and well nourished GENERAL APPEARANCE: cooperative Eye: COMMON NORMALS: no scleral icterus Resp: COMMON NORMALS: normal respiratory effort and clear to auscultation bilaterally AUSCULTATION: clear to auscultation bilaterally Cardio: COMMON NORMALS: regular rate and regular rhythm RATE: regular rate RHYTHM: regular rhythm GI: COMMON NORMALS: Normal to inspection, nondistended, normoactive bowel sounds present, No hepatosplenomegaly present and no masses INSPECTION: Yes normal to inspection AUSCULTATION: Yes normoactive bowel sounds PALPATION: Yes Tenderness to palpation present (GI) (diffuse) and Yes No hepatosplenomegaly present RECTAL EXAM: other (fecal smearing in brief and gluteal clefts) : COMMON NORMALS: Yes no CVA tenderness BLADDER/KIDNEY EXAM: Yes no CVA tenderness Back/Pelvis: COMMON NORMALS: no CVA tenderness Extremity: NARRATIVE EXTREMITY EXAM: chronic atrophy/contracture consistent with her known CP GENERAL: Yes normal exam except as noted Neuro: SENSORIUM/ORIENTATION: Yes alert Course 2 Vital Signs: Vital signs: Vital Signs Temperature 97.6 F 08/31/24 20:47 Pulse Rate 75 08/31/24 23:21 Respiratory Rate 16 08/31/24 23:21 Blood Pressure 117/87 08/31/24 23:21 Pulse Oximetry 99 08/31/24 23:21 Oxygen Delivery Me thod Room Air 08/31/24 23:21 MDM - Abdominal Pain Medical Decision Making Patient is a 24-year-old female here with complaints of abdominal pain. She has a history of cerebral palsy. Chronic history of constipation. Vital signs stable or here. She clinically appears in no acute distress. Blood work and UA are unremarkable. CT scan showing no acute process. She does have diffuse moderate constipation as well as a rectal stool ball. Patient was provided milk of molasses enema here at her request and did have bowel movement. She is reporting relief.. She will continue with bowel prep medications at home- discussed additional options of milk of mag and/or mag citrate if needed. We did discuss additional suppository options for home use as well. Return to ED precautions given. Differential Diagnosis Likely abdominal pain, constipation and small bowel obstruction Medical Records I reviewed the patient's medical records. Lab Data I reviewed the patient's lab results. 08/31/24 21:44 08/31/24 22:24 Labs/Radiology: Radiology Impressions Abdomen/Pelvis CT 08/31/24 21:10 IMPRESSION: 1. No definite acute intra-abdominal or intrapelvic process. 2. Rectal stool ball and moderate constipation. Laboratory Results WBC 8.04 10^3/uL (3.29-11.43) 08/31/24 21:44 RBC 4.20 10^6/uL (3.85-5.65) 08/31/24 21:44 Hgb 12.30 g/dL (11.27-16.99) 08/31/24 21:44 Hct 37.3 % (36-47) 08/31/24 21:44 MCV 88.8 fl (85-98) 08/31/24 21:44 MCH 29.3 pg (27-33) 08/31/24 21:44 MCHC 33.0 g/dL (30-55) 08/31/24 21:44 RDW 12.8 % (12.1-15.1) 08/31/24 21:44 Plt Count 211 10^3/cmm (157-399) 08/31/24 21:44 MPV 10.4 fL (7.4-10.4) 08/31/24 21:44 Neut % (Auto) 61.1 % 08/31/24 21:44 Lymph % (Auto) 30.7 % 08/31/24 21:44 [place] % (Auto) 6.0 % 08/31/24 21:44 Eos % (Auto) 1.5 % 08/31/24 21:44 Baso % (Auto) 0.5 % 08/31/24 21:44 Neut # (Auto) 4.91 10^3/uL (1.8-7.7) 08/31/24 21:44 Lymph # (Auto) 2.5 10^3/uL (0.8-4.8) 08/31/24 21:44 [place] # (Auto) 0.5 10^3/uL (0.2-0.9) 08/31/24 21:44 Eos # (Auto) 0.1 10^3/uL (0.0-0.8) 08/31/24 21:44 Baso # (Auto) 0.0 10^3/uL (0.0-0.1) 08/31/24 21:44 Nucleated RBC % (auto) 0 % 08/31/24 21:44 Nucleated RBCs # 0.0 /100WBC 08/31/24 21:44 Sodium 137 mmol/L (136-145) 08/31/24 22:24 Potassium 4.0 mmol/L (3.5-5.1) 08/31/24 22:24 Chloride 101 mmol/L (98-107) 08/31/24 22:24 Carbon Dioxide 25 mmol/L (22-29) 08/31/24 22:24 Anion Gap 15.0 (5-19) 08/31/24 22:24 BUN 7 mg/dL (6-20) 08/31/24 22:24 Creatinine 0.4 mg/dL (0.5-0.9) L 08/31/24 22:24 GFR Calculation 194.5 mL/min (90-130) H 08/31/24 22:24 Glucose 94 mg/dL (65-115) 08/31/24 22:24 Calculated Osmolality 282 mOsm/kg (285-295) L 08/31/24 22:24 Calcium 9.2 mg/dL (8.5-10.5) 08/31/24 22:24 Total Bilirubin 0.3 mg/dL (0.15-1.2) 08/31/24 22:24 AST 16 U/L (0-32) 08/31/24 22:24 ALT 10 U/L (0-33) 08/31/24 22:24 Alkaline Phosphatase 124 U/L (35-105) H 08/31/24 22:24 Total Protein 6.9 g/dL (6.6-8.7) 08/31/24 22:24 Albumin 4.0 g/dL (3.5-5.2) 08/31/24 22:24 Globulin 2.9 g/dL (1.3-4.6) 08/31/24 22:24 Lipase 38 U/L (13-60) 08/31/24 22:24 HCG, Qual Negative (Negative) 08/31/24 21:44 Urine Color Yellow (Yellow) 08/31/24 22:21 Urine Appearance Clear (CLEAR) 08/31/24 22:21 Urine pH 7.0 (5-7) 08/31/24 22:21 Ur Specific [place] 1.015 (1.005-1.030) 08/31/24 22:21 Urine Protein Negative (Negative) 08/31/24 22:21 Urine Glucose (UA) Negative (Normal) 08/31/24 22:21 Urine Ketones Negative (Negative) 08/31/24 22:21 Urine Blood Negative (Negative) 08/31/24 22:21 Urine Nitrate Negative (Negative) 08/31/24 22:21 Urine Bilirubin Negative (Negative) 08/31/24 22:21 Urine Urobilinogen 1.0 mg/dL (Negative) 08/31/24 22:21 Ur Leukocyte Esterase Negative (Negative) 08/31/24 22:21 Urine RBC 0-2 /hpf (0-2) 08/31/24 22:21 Urine WBC 0-5 /hpf (0-5) 08/31/24 22:21 Ur Squamous Epith Cells 0-5 /hpf (0-5) 08/31/24 22:21 Amorphous Sediment Not Reportable 08/31/24 22:21 Urine Bacteria None seen /hpf (NONE) 08/31/24 22:21 Hyaline Casts 0-4 /lpf H 08/31/24 22:21 All radiology interpretation(s) finalized by discharge Discharge Plan Discharge Patient Disposition: Home Clinical Impression: Constipation Qualifiers: Constipation type: unspecified constipation type Qualified Code(s): K59.00 - Constipation, unspecified Condition: Stable Prescriptions: No Action baclofen 10 mg tablet 10 mg PO DAILY clonazepam 0.5 mg tablet 0.5 mg PO BID Rx Instructions: Take one half in AM & one at HS. spironolactone 50 mg tablet 50 mg PO BID folic acid 20 mg Capsule 20 mg PO DAILY ibuprofen [Advil] 200 mg Tablet 200 mg PO Q6H PRN (Reason: Pain) hydroxyzine HCl 10 mg tablet 10 mg PO BID PRN (Reason: Anxiety) bisacodyl 5 mg Tablet 10 mg PO DAILY PRN (Reason: Constipation) escitalopram oxalate 20 mg tablet 20 mg PO DAILY melatonin 5 mg Tablet 5 mg PO BEDTIME PRN (Reason: Sleep) ZzzQuil 50 mg/30 mL Liquid 50 mg PO BEDTIME PRN (Reason: Sleep) Probiotic 15 billion cell Capsule 1 cap PO DAILY gabapentin 600 mg tablet 600 mg PO BID Qty: 60 0RF polyethylene glycol 3350 [Miralax] 17 gram powder in packet 17 g PO BID Qty: 14 0RF naproxen [Naprosyn] 500 mg tablet 500 mg PO BID PRN (Reason: pain) Qty: 20 0RF ondansetron 4 mg tablet,disintegrating 4 mg PO Q6H PRN (Reason: nausea and vomiting) Qty: 14 0RF Discharge Orders: Discharge ED (Routine); Ordered 09/01/24 Ordered By: Marichuy Peterson Referrals: Carolyn Rosales, TELEMETRY TECH [Primary Care Provider] - Patient Instructions: Constipation (DC) Activity Restrictions/Additional Instructions: As we discussed, continue your Lactulose and MiraLAX twice daily. You may also use your Dulcolax. We also spoke about other options including milk of magnesia and/or mag citrate. There are several [id number] options for suppositories/enemas you may try over the next several days to help continue to evacuate. May follow-up with primary care later this week/next week for further evaluation. Coding Level of Care Code ED [employer] for Atif Woodard
--- NOTE | 2024-08-31 21:10 | CTR_ITS ---
PROCEDURE INFORMATION: Exam: CT Abdomen And Pelvis With Contrast Exam date and time: 08/31/2024 9:52 PM Age: 24 years old Clinical indication: Abdominal pain; Additional info: Abdominal pain, fecal incontinence TECHNIQUE: Imaging protocol: Computed tomography of the abdomen and pelvis with contrast. Radiation optimization: All CT scans at this facility use at least one of these dose optimization techniques: automated exposure control; mA and/or kV adjustment per patient size (includes targeted exams where dose is matched to clinical indication); or iterative reconstruction. Contrast material: OMNI 350; Contrast volume: 100 ml; Contrast route: INTRAVENOUS (IV); COMPARISON: CT abdomen pelvis w con* [id number] 06/03/2024 4:35 PM RADIATION DOSE METRICS: Total DLP (mGy-cm): 814.91 FINDINGS: Diaphragm: Left hemidiaphragm eventration. Liver: Normal. No mass. Gallbladder and biliary ducts: Normal. No calcified stones. No ductal dilation. Pancreas: Normal. No ductal dilation. Spleen: Normal. No splenomegaly. Adrenal glands: Normal. No mass. Kidneys and ureters: Normal. No hydronephrosis. Stomach and bowel: Large amount retained stool in the colon from constipation. Moderately sized rectal stool ball. Appendix: No evidence of appendicitis. Intraperitoneal space: Unremarkable. No free air. No significant fluid collection. Vasculature: Unremarkable. No abdominal aortic aneurysm. Lymph nodes: Unremarkable. No enlarged lymph nodes. Urinary bladder: Unremarkable as visualized. Reproductive: Unremarkable as visualized. Bones/joints: Postsurgical changes of the spine with hardware that appears intact. Soft tissues: Unremarkable. CT/CT abdomen pelvis w con* [id number] IMPRESSION: 1. No definite acute intra-abdominal or intrapelvic process. 2. Rectal stool ball and moderate constipation.
[2024-08-31 21:48] LABS: Basophils % 0.5 %; Eosinophils # 0.1 10^3/uL (0.0-0.8); Eosinophils % 1.5 %; Hematocrit 37.3 % (36-47); Lymphocytes # 2.5 10^3/uL (0.8-4.8); Lymphocytes % 30.7 %; Mean Corpuscular Hemoglobin 29.3 pg (27-33); Mean Corpuscular Volume 88.8 fl (85-98); Mean Platelet Volume 10.4 fL (7.4-10.4); Monocytes # 0.5 10^3/uL (0.2-0.9); Neutrophils # 4.91 10^3/uL (1.8-7.7); Neutrophils % 61.1 %; Nucleated Red Blood Cells % 0 %; Platelet Count 211 10^3/cmm (157-399); Red Cell Distribution Width 12.8 % (12.1-15.1); White Blood Count 8.04 10^3/uL (3.29-11.43)
[2024-08-31] MEDS: iohexol 350 mg/mL 500 mL Btl (per mL) IV (21:54)
[2024-08-31 22:01] LABS: HCG, Serum Qual Negative (Negative)
[2024-08-31 22:27] LABS: Bilirubin Urine Negative (Negative); Blood Urine Negative (Negative); Glucose Urine UA Negative (Normal); Ketones Urine Negative (Negative); Leukocyte Esterase Urine Negative (Negative); Nitrate Urine Negative (Negative); Protein Urine Negative (Negative); Specific Gravity, Urine 1.015 (1.005-1.030); Urine Appearance Clear (CLEAR); Urine Color Yellow (Yellow)
[2024-08-31 22:32] LABS: Add Urine Microscopic? YES; Bacteria Urine None Seen /hpf; Hyaline Casts Urine 0-4 /lpf; RBC Urine 0-2 /hpf (0-2); Squamous Epithelial Cell Urine 0-5 /hpf (0-5); WBC Urine 0-5 /hpf (0-5)
[2024-08-31 22:41] VITALS: BP 102/63; PULSE 94; O2SAT 100
[2024-08-31 22:58] LABS: Alanine Aminotransferase 10 U/L (0-33); Alkaline Phosphatase 124 U/L (35-105); Aspartate Amino Transferase 16 U/L (0-32); Blood Urea Nitrogen 7 mg/dL (6-20); Calcium 9.2 mg/dL (8.5-10.5); Carbon Dioxide 25 mmol/L (22-29); Chloride 101 mmol/L (98-107); Creatinine Clr Calc Pharmacy 208.3202; Globulin 2.9 g/dL (1.3-4.6); Glomerular Filtration Rate 194.5 mL/min (90-130); Glucose 94 mg/dL (65-115); Lipase 38 U/L (13-60); Osmolality Calculated 282 mOsm/kg (285-295); Sodium 137 mmol/L (136-145); Total Bilirubin 0.3 mg/dL (0.15-1.2); Total Protein 6.9 g/dL (6.6-8.7)
[2024-08-31] MEDS: ketorolac 30 mg/mL INJ IVP (23:16)
[2024-08-31] MEDS: ondansetron 2 mg/ML SDV 2 mL 4 MG IVP (23:16)
[2024-08-31 23:21] VITALS: BP 117/87; PULSE 75; RESP 16; O2SAT 99
[2024-09-01 01:19] VITALS: BP 96/69; PULSE 81; RESP 16; O2SAT 95
[2024-09-01 01:29] VITALS: BP 100/69; PULSE 86; RESP 16; O2SAT 100
== END 2024-09-01 02:08 | disposition home or self-care (01) ==
PROVIDERS: Emergency Provider Physician Assistant; PCP Nurse Practitioner
DX: K59.00 Constipation, unspecified (principal)
CPT/HCPCS: 36415; 74177; 80053; 81001; 83690; 84703; 85025; 96374; 96375; 99285; J1885; J2405

== ENCOUNTER → 2024-10-05 16:16 | Outpatient (BNVA) | payer MEDICARE, OTHER, MEDICAID, SELFPAY | PROVIDERS: PCP Nurse Practitioner; Visit Provider Internal Medicine Cardiovascular Disease | DX: R00.2 Palpitations (principal); R07.89 Other chest pain; Z87.891 Personal history of nicotine dependence | CPT/HCPCS: 99213 ==

== ENCOUNTER → 2024-11-22 14:17 | Outpatient (BNVA) | payer MEDICARE, OTHER, MEDICAID, SELFPAY | PROVIDERS: PCP Nurse Practitioner; Visit Provider Nurse Practitioner Family | DX: L70.0 Acne vulgaris (principal); L21.8 Other seborrheic dermatitis; D22.5 Melanocytic nevi of trunk | CPT/HCPCS: 99214 ==

== ENCOUNTER 2024-11-23 12:43 | Outpatient (CLI) | payer MEDICARE, OTHER, MEDICAID, SELFPAY ==
[2024-11-23 13:52] LABS: Alanine Aminotransferase 11 U/L (0-33); Albumin Level 4.1 g/dL (3.5-5.2); Alkaline Phosphatase 116 U/L (35-105); Blood Urea Nitrogen 10 mg/dL (6-20); Calcium 9.1 mg/dL (8.5-10.5); Carbon Dioxide 26 mmol/L (22-29); Chloride 104 mmol/L (98-107); Globulin 2.8 g/dL (1.3-4.6); Glomerular Filtration Rate 194.5 mL/min (90-130); Glucose 88 mg/dL (65-115); Osmolality Calculated 286 mOsm/kg (285-295); Sodium 139 mmol/L (136-145); Total Bilirubin 0.4 mg/dL (0.15-1.2); Total Protein 6.9 g/dL (6.6-8.7)
[2024-11-23 13:54] LABS: Anion Gap 13.2 (5-19); Aspartate Amino Transferase 18 U/L (0-32); Potassium 4.2 mmol/L (3.5-5.1)
== END 2024-11-23 12:44 | disposition home or self-care (01) ==
LOC: LAB 12:45
PROVIDERS: PCP Nurse Practitioner; Visit Provider Nurse Practitioner Family
DX: L70.0 Acne vulgaris (principal)
CPT/HCPCS: 80053

== ENCOUNTER 2024-12-09 13:58 | Outpatient (CLI) | payer MEDICARE, OTHER, MEDICAID, SELFPAY ==
[2024-12-09 14:27] LABS: Bacteria Urine 4+ /hpf; RBC Urine >100 /hpf (0-2); Squamous Epithelial Cell Urine 0-5 /hpf (0-5); WBC Urine 51-100 /hpf (0-5)
[2024-12-09 14:35] LABS: Urine Appearance Cloudy (CLEAR); Urine Color Dark Yellow (Yellow); pH Urine 6 (5-7)
[2024-12-09 14:37] LABS: Glucose Urine UA Norm (Normal); Ketones Urine 1+ (Negative); Protein Urine 1+ (Negative)
[2024-12-09 14:38] LABS: Add Urine Culture? Yes; Add Urine Microscopic? YES; Bilirubin Urine Neg (Negative); Blood Urine 3+ (Negative); Leukocyte Esterase Urine 2+ (Negative); Nitrate Urine Positive (Negative); Urobilinogen Urine Norm (Negative)
== END 2024-12-09 13:59 | disposition home or self-care (01) ==
LOC: LAB 14:01
PROVIDERS: PCP Nurse Practitioner; Visit Provider Nurse Practitioner
DX: R82.90 Unspecified abnormal findings in urine (principal)
CPT/HCPCS: 81001; 87086

== ENCOUNTER → 2024-12-29 15:17 | Outpatient (BNVA) | payer MEDICARE, OTHER, MEDICAID, SELFPAY | PROVIDERS: PCP Nurse Practitioner; Visit Provider Nurse Practitioner | DX: N39.0 Urinary tract infection, site not specified (principal); R39.9 Unspecified symptoms and signs involving the genitourinary system | CPT/HCPCS: 81000; 87077; 87086; 87184 ==

== ENCOUNTER → 2025-01-06 10:02 | Outpatient (BNVA) | payer MEDICARE, OTHER, MEDICAID, SELFPAY | PROVIDERS: PCP Nurse Practitioner; Visit Provider Nurse Practitioner Women's Health | DX: N92.6 Irregular menstruation, unspecified (principal); Z01.419 Encounter for gynecological examination (general) (routine) without abnormal findings; Z11.3 Encounter for screening for infections with a predominantly sexual mode of transmission | CPT/HCPCS: 82670; 83001; 83002; 83036; 83525; 84402; 84403; 84443; 86705; 86706; 86709; 86803; 87340; 87491; 87591; 87661; 87806 ==

== ENCOUNTER 2025-02-21 06:34 | Outpatient (CLI) | payer OTHER, MEDICARE, MEDICAID, SELFPAY ==
--- NOTE | 2025-02-21 06:42 | US_ITS ---
WS: [id number] RIGHT UPPER QUADRANT ULTRASOUND HISTORY: Nausea COMPARISON: 05/21/2022 Liver: 13.0 cm in length. Normal size liver and echogenicity. No bile duct dilatation or mass. Portal Vein: Normal hepatopetal flow with monophasic waveform. Gallbladder: Normally distended gallbladder with no stones or wall thickening. CBD: 0.5 cm Pancreas: Not visualized. Right kidney: 7.9 cm in length. Normal size and echogenicity. No hydronephrosis or mass. Aorta and IVC: Unremarkable abdominal aorta and IVC. No ascites. US/US gall bladder [id number] IMPRESSION: 1. RIGHT upper quadrant Limited by body habitus. 2. Negative gallbladder. 3. Negative liver. No bile duct dilatation.
== END 2025-02-21 06:35 | disposition home or self-care (01) ==
PROVIDERS: PCP Nurse Practitioner; Visit Provider Nurse Practitioner
DX: R11.0 Nausea (principal)
CPT/HCPCS: 76705

== ENCOUNTER 2025-02-23 22:26 | Emergency (ER) | payer OTHER, MEDICARE, MEDICAID, SELFPAY ==
--- OUTSIDE RECORDS SUMMARY | 2024-12-09 03:50 | XMS_ITS ---
Author Organization [facility] Address [address] [address] Care Team Providers Care Can Feeder Name Role Phone Carolyn Rosales Unavailable [phone] Allergies Allergen (clinical drug ingredient) Drug/Non Drug Allergy documented on EMR Reaction Allergy Type Onset Date Status Neosporin AF rash Drug Allergy Acti ve bacitracin / polymyxin B Polysporin rash Drug Allergy Active Substance with sulfonamide structure and antibacterial mechanism of action (substance) Sulfa Antibiotics rash, itching Drug Allergy Active REASON FOR VISIT 6 month f/u; CCA Medications Medication SIG (Take, Route, Frequency, Duration) Notes Start Date End Date Status Vienva 0.1-20 MG-MCG 1 tablet Orally Onc e a day 12/30/2022 Not-Taking Ondansetron HCl 4 MG TAKE 1 TABLET BY MOUTH THREE TIMES DAILY NEEDED Oral; Duration: 4 Days Not-Taking Albuterol Sulfate HFA 108 (90 Base) MCG/ACT INHALE 2 PUFFS EVERY 4 HOURS NEEDED FOR COUGH Inhalation; Duration: 16 Days Not-Taking Famotidine 20 MG Oral; Duration: 30 Days otc Not-Taking Propranolol HCl ER 80 MG Oral; Duration: 90 Days Not-Taking Escitalopram Oxalate 10 MG TAKE 1 TABLET BY MOUTH EVERY DAY; Duration: 90 Active Zofran ODT Not-Takin g Gabapentin 600 MG TAKE 1 TABLET BY MOUTH TWICE DAILY; Duration: 90 Active clonazePAM 0.5 MG TAKE 1/2 TABLET BY MOUTH EVERY MORNING AND 1 TABLET BY MOUTH EVERY NIGHT AT BEDTIME.; Duration: 30 days 11/12/2024 Active MiraLax Mix-In [place] 17 GM 1 packet mixed with 8 ounces of fluid Orally Once a day; Duration: 30 days 09/26/2024 2025 Active Ondansetron HCl 4 MG 1 tablet as needed for nausea/vomiting Orally three times daily 09/13/2023 Active Pantoprazole Sodium 40 MG 1 tablet 1/2 t o 1 hour before morning meal Orally Once a day; Duration: 30 days 12/09/2024 Active Baclofen 10 MG 1 tablet as needed Oral Once a day; Duration: 90 days 10mg at bedtime Active Propranolol HCl ER 60 MG TAKE 1 CAPSULE BY MOUTH EVERY DAY; Duration: 90 days Active Lactulose 10 GM/15ML 30 mL Orally twice a day Active MiraLax 17 GM/SCOOP 1 scoop mixed with 8 ounces of fluid. can adjust dose as needed Orally daily Active Spironolactone 50 MG 1 tablet Oral Once a day; Duration: 30 days Active hydrOXYzine HCl 25 MG TAKE 1 TABLET BY MOUTH TWICE DAILY NEEDED FOR ANXIETY OR PANIC; Duration: 90 days Active Probiotic 11/08/2022 Active Naproxen 500 MG TAKE 1 TABLET BY MOUTH EVERY 12 HOURS NEEDED FOR PAIN Oral; Duration: 10 Days prn Active Stool Softener Activ e Social History Sex Assigned At : Social History Observation Description Sex Assigned At Female Problems Problem Type SNOMED Code ICD Code Onset Dates Problem Status W/U Status Risk Notes Problem Anxiety disorder, unspecified type (F41.9) Active confirmed Vital Signs Temperature 98.3 degrees Fahrenheit 12/10/19 25 Blood pressure systolic 130 mm Hg 12/10/19 25 Blood pressure diastolic 72 mm Hg 025 Heart Rate 72 /min 12/09/2024 Height 63 in 12/09/2024 Weight 169 lbs 12/09/2024 BMI 29.93 kg/m2 12/09/2024 Oximetry 96 % 12/09/2024 Height-cm 160.02 cm 12/09/2024 Weight-kg 76.66 kg 12/09/2024 Encounters Encounter Location Date Provider Diagnosis [address] [address] 12/09/2024 Carolyn Rosales Gastroesophageal ref lux disease, unspecified whether esophagitis present K21.9 ; Cerebral palsy with level 4 of gross motor function classification system (GMFCS) G80.9 ; Dependence on wheelchair Z99.3 ; Intermittent constipation K59.09 ; Depression with anxiety F41.8 ; Chronic constipation K59.09 ; 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 ; Frequent headaches R51.9 ; Anxiety disorder, unspecified type F41.9 and Malodorous urine R82.90 Assessments Encounter Date Diagnosis (ICD Code) Assessment Notes Treatment Notes Treatment Clinical Notes Section Notes 12/09/2024 Gastroesophageal reflux disease, unspecified whether esophagitis present (ICD-10 - K21.9) 12/09/2024 Cerebral palsy with level 4 of gross motor function classification system (GMFCS) (ICD-10 - G80.9) Follow-up [facility] 12/09/2024 Dependence on wheelchair (ICD-10 - Z99.3) Continue wheelchair 12/09/2024 Intermittent constipation (ICD-10 - K59.09) 12/09/2024 Depression with anxiety (ICD-10 - F41.8) Lexapro 12/09/2024 Chronic constipation (ICD-10 - K59.09) 12/09/2024 Spastic quadriplegic cerebral palsy (ICD-10 - 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 She will drop off specimen at the hospital [facility] 12/09/2024 Other Care Coordination Assessment completed, signed and dated by provider during visit. Plan Of Treatment Medication Medication Name Sig Start Date Stop Date Notes Pantoprazole Sodium 40 MG 1 tablet 1/2 t o 1 hour before morning meal Orally Once a day; Duration: 30 days 12/09/2024 Pantoprazole Sodium 20 MG TAKE 1 TABLET BY MOUTH DAILY IN THE MORNING ON AN EMPTY STOMACH Treatment Notes Assessment Notes Cerebral palsy with level 4 of gross motor function classification system (GMFCS) Follow-up [facility] Dependence on wheelchair Continue wheelc hair Depression with anxiety Lexapro Spastic quadriplegic cerebral palsy Foll ow-up [facility] Anxiety disorder, unspecified type [place] xyzine Malodorous urine Order sent with verito ent for UA and culture. She will drop off specimen at the hospital was [facility]. Other Care Coordination As sessment completed, signed and dated by provider during visit. Next Appt Details Provider Name:Carolyn Rosales , 05/23/2025 10:00:00 AM, [address] [place] [address], [phone], Progress Notes * Maria Esther [place] WDOB:1999 (24 yo F)Acc No.[id number]:12/09/2024 Patient: Beverly LEANNDavidia W Provider: Sergio Rosales :2000 A ge:24 Y S ex:Female Date:12/09/2024 Address:[address] [place], [place] [id number] Subjective: * Chief Complaints: * 1 . 6 month f/u; CCA. * HPI: D epression screening: she had colonoscopy and EGD. GI recommended increase her pantropazole to 40mg qd -- she reports she was seen at [facility] Dr Pino no med rf. f/u 1yr. I have not received those records. PHQ-9 L ittle interest or pleasure in doing things?Not at all F eeling down, depressed, or hopeless S everal days T rouble falling or staying asleep, or sleeping too much S everal days F eeling tired or having little energy N ot at all P oor appetite or overeating N ot at all F eeling bad about yourself or that you are a failure, or have let yourself or your family down S everal days T rouble concentrating on things, such as reading the newspaper or watching television N ot at all M oving or speaking so slowly that other people could have noticed; or the opposite, being so fidgety or restless that you have been moving around a lot more than usual N ot at all T houghts that you would be better off or of hurting yourself in some way N ot at all T otal Score 3 I nterpretation M inimal Depression T ransition of Care: Here for 6 month f/u needs refills on several meds Bowels are improved-using Miralax daily-using Lactulose as needed C/O urine odor-she noticed last night She has been taking AZO Asking for control-she does have an appt with [facility] 01/06/25 she is asking for Norethindrone .35 (Mylan generic) is in a relationship. * Medical History: S pastic quadriplegic cerebral palsy, [place], Chronic kidney infections. * Medications: T aking Stool Softener , Taking Naproxen 500 MG Tablet TAKE 1 TABLET BY MOUTH EVERY 12 HOURS NEEDED FOR PAIN Oral , Notes to Pharmacist: prn, Taking Probiotic , Taking Spironolactone 50 MG Tablet 1 tablet Oral Once a day , Taking hydrOXYzine HCl 25 MG Tablet TAKE 1 TABLET BY MOUTH TWICE DAILY NEEDED FOR ANXIETY OR PANIC , Taking MiraLax 17 GM/SCOOP Powder 1 scoop mixed with 8 ounces of fluid. can adjust dose as needed Orally daily , Taking Ondansetron HCl 4 MG Tablet 1 tablet as needed for nausea/vomiting Orally three times daily , Notes: VOcl/mw, Taking Lactulose 10 GM/15ML Solution 30 mL Orally twice a day , Taking Baclofen 10 MG Tablet 1 tablet as needed Oral Once a day 10mg at bedtime, Taking Propranolol HCl ER 60 MG Capsule Extended Release 24 Hour TAKE 1 CAPSULE BY MOUTH EVERY DAY , Taking Pantoprazole Sodium 20 MG Tablet Delayed Release TAKE 1 TABLET BY MOUTH DAILY IN THE MORNING ON AN EMPTY STOMACH , Taking MiraLax Mix-In [place] 17 GM Packet 1 packet mixed with 8 ounces of fluid Orally Once a day , stop date 2025, Taking Gabapentin 600 MG Tablet TAKE 1 TABLET BY MOUTH TWICE DAILY , Taking clonazePAM 0.5 MG Tablet TAKE 1/2 TABLET BY MOUTH EVERY MORNING AND 1 TABLET BY MOUTH EVERY NIGHT AT BEDTIME. , Taking Escitalopram Oxalate 10 MG Tablet TAKE 1 TABLET BY MOUTH EVERY DAY , Not-Taking Zofran ODT , Not-Taking Vienva 0.1-20 MG-MCG Tablet 1 tablet Orally Once a day , Not-Taking Famotidine 20 MG Tablet Oral , Notes to Pharmacist: otc, Not-Taking Propranolol HCl ER 80 MG Capsule Extended Release 24 Hour Oral , Not-Taking Ondansetron HCl 4 MG Tablet TAKE 1 TABLET BY MOUTH THREE TIMES DAILY NEEDED Oral , Not-Taking Albuterol Sulfate HFA 108 (90 Base) MCG/ACT Aerosol Solution INHALE 2 PUFFS EVERY 4 HOURS NEEDED FOR COUGH Inhalation , Medication List reviewed and reconciled with the patient * Allergies: S ulfa Antibiotics: rash, itching, Neosporin AF: rash, Polysporin: rash. Objective: * Vitals: B P:130/72mm Hg, HR:72/min, Temp:98.3F, Oxygen sat %:96%, Wt:169lbs, Wt-k.66 kg, Ht: 63 in, Ht-cm: 160.02 cm, BMI:29.93Index, Body Surface Area: 1.84. Assessment: * Assessment: 1. G astroesophageal reflux disease, unspecified whether esophagitis present - K21.9 (Primary)? 2. C erebral palsy with level 4 of gross motor function classification system (GMFCS) - G80.9 3 . D ependence on wheelchair - Z99.3 4 . I ntermittent constipation - K59.09 5 . D epression with anxiety - F41.8 6 . C hronic constipation - K59.09 7 . S pastic quadriplegic cerebral palsy - G80.0 8 . F requent headaches - R51.9 9 . A nxiety disorder, unspecified type - F41.9 1 0. M alodorous urine - R82.90 ? Plan: * Treatment: 2. C erebral palsy with level 4 of gross motor function classification system (GMFCS) Notes: Follow-up [facility] 3. D ependence on wheelchair Notes: Continue wheelchair 4. D epression with anxiety Notes: Lexapro 5. S pastic quadriplegic cerebral palsy Notes: Follow-up [facility] 6. A nxiety disorder, unspecified type Notes: Hydroxyzine 7. M alodorous urine Notes: Order sent with patient for UA and culture. She will drop off specimen at the hospital was [facility]. 8. O thers Notes: Care Coordination Assessment completed, signed and dated by provider during visit. ? * Billing Information: * Visit Code: * Procedure Codes: Images * CCA 2024 * Electronic signature of Corona Rosales , [email or web address] on 02/23/2025 at 10:40 PM CDT Sign off status: Pending * Provider: Sergio Rosales Date: 0 12/09/2024 Generated for Lucita arenas/Angelo/Luba on: 0 02/23/2025 10:40 PM CDT History and Physical Notes * HPI (History of Present Illness) Category Sub-Category Detail Notes Category Not es Transition of Care Here for 6 month f/u needs refills on several meds Bowels are improved-using Miralax daily-using Lactulose as needed C/O urine odor-she noticed last night She has been taking AZO Asking for control-she does have an appt with [facility] 01/06/25 she is asking for Norethindrone .35 (Mylan generic) is in a relationship Depression screening PHQ-9 Little interest or pleasure in doing things: Not at all Feeling down, depressed, or hopeless: Se veral days Trouble falling or staying asleep, or sl eeping too much: Several days Feeling tired or having little energy: N ot at all Poor appetite or overeating: Not at all Feeling bad about yourself o r that you are a failure, or have let yourself or your family down: Several days Trouble concentrating on thi ngs, such as reading the newspaper or watching television: Not at all Moving or speaking so slowly that other people could have noticed; or the opposite, being so fidgety or restless that you have been moving around a lot more than usual: Not at all Thoughts that you would be b jocelyn off or of hurting yourself in some way: Not at all Total Score: 3 Interpretation: Minimal Depression
--- OUTSIDE RECORDS SUMMARY | 2025-02-23 22:40 | XMS_ITS | Clinical Summary ---
Author Organization [facility] Based Address [address] [place] [phone] Care Team Providers Care White Lead Filterer Name Role Phone Unavailable Primary Care Provider Unavailabl e Social History Tobacco Use Types Packs/Day Years Used Date Smoking Tobacco: Never Assessed Comments Unknown Sex and Gender Information Value Date Recorded Sex Assigned at Not on file Legal Sex Female 8:44 AM CDT Gender Identity Not on file Sexual Orientation Not on file Plan of Treatment Health Maintenance Due Date Last Done Comments HPV VACCINES (1 - 3-dose series) 2014 DTAP/TDAP/TD VACCINES (1 - Tdap) 2018 HEPATITIS B VACCINES (1 of 3 - 19+ 3-dose series) 03/02 CERVICAL CANCER SCREENING 2020 HPV/Cotest (21-29) 2020 PAP SMEAR 2020 INFLUENZA VACCINE (#1) 2024
--- OUTSIDE RECORDS SUMMARY | 2025-02-23 22:40 | XMS_ITS | Patient Health Record ---
Author Organization [facility] Address [address] [place] [address] Support Name Relationship Address Phone Stephen Morfin Emergency Contact [phone] [employer] [id number] Ari Morfin Guarantor Unknown Unavailab le Allergies Allergen (clinical drug ingredient) Drug/Non Drug Allergy documented on EMR Reaction Allergy Type Onset Date Status sulfacetamide Sulfacetamide Sodium hives Drug Allergy Active Reason For Referral No Information Medications Medication SIG (Take, Route, Frequency, Duration) Notes Start Date End Date Status Pantoprazole Sodium *please revi ew for potential update for e-prescription and drug interaction check* Active Gabapentin *please review f or potential update for e-prescription and drug interaction check* Active Escitalopram Oxalate *please rev iew for potential update for e-prescription and drug interaction check* Active Azithromycin 250 MG 2 tablets on the first day, then 1 tablet daily for 4 days Orally Once a day for 5 day(s) 09/24/2017 Active Baclofen *please review f or potential update for e-prescription and drug interaction check* Active clonazePAM *please review f or potential update for e-prescription and drug interaction check* Active predniSONE 5 MG (21) as directed Orally for 6 days 09/24/2017 Active Amethia *please review f or potential update for e-prescription and drug interaction check* Active Plan Of Treatment No Information Medical (General) History Medical History History ICD Code Spinal fusion Other Othro corrections Anxiety GERD Depression Wheelchair bound from cerebral palsy
--- OUTSIDE RECORDS SUMMARY | 2025-02-23 22:41 | XMS_ITS | Data Portability ---
Author Organization PORSHA Kwame Costello [facility], [facility] Address [address] [address] Care Team Providers Care Nurse Midwife Name Role Phone MODESTA ARNOLD Primary Care Provider [phone] Assessment Encounter Date Assessment Date Assessment LastModified by Organization Details LastModified Time 08/11/2024 08/11/2024 No evaluated. no charge visit [email or web address] Not available 08/13/2024 07:44:13 Plan of Treatment Reminders Order Date Submit Date Provider Last Modified By Organization Details Last Modified Time Details Appointments None recorded. Lab rapid flu (A+B), PCR 2024 025 [facility] ([facility]), [address] [place] [address], [phone], 5 11:26:33 SARS CoV 2 RNA, QL, nasopharynx 2024 025 [facility] ([facility]), [address] [place] [address], [address], 5 11:26:13 urinalysis, complete 2023 024 [facility] ([facility]), [address] [place] [address], [address], 4 15:04:36 culture, urine 2023 024 [facility] [employer] [facility], [address] [place] [address] [address], [place], [address], 4 15:08:51 urinalysis, dipstick 2023 024 [facility] [address] [place], [address], 4 18:37:58 culture, urine 2023 024 [facility], [address] [place] [address] [address], [place], [address], 4 12:22:49 Referral None recorded. Procedures None recorded. Surgeries None recorded. Imaging XR, abdomen, 2 view 2023 024 [facility] ([facility]), [address] [place], [address], 4 10:17:59 Medication Orders ondansetron HCl 4 mg tablet 2024 025 [id number], [address], [place], [place], [id number], 5 11:07:19 ciprofloxac in 500 mg tablet 2023 024 [facility]56513, [address], [place], [place], [id number], 4 13:47:35 ciprofloxac in 500 mg tablet 2023 [email or web address] [place] [address] [facility] #[id number], [address], [place], [place], [phone], 4 13:47:21 Patient TargetsNo targets recorded. Patient InstructionsNo instructions recorded. Reason for Referral None Reported. Results Created Date Observation Date Name Description Value Unit Range Abnormal Flag Note LastModifiedBy Organization Detail LastModifiedTime 01/22/20 24 01/24/2024 CULTU RE, URINE , ROUTI NE culture, urine, routine SEE NOTE CULTU RE, URINE , ROUTI NE Micro Numbe r: [id number] Test Statu s: Final Speci men Sourc e: Urine , clean catch Speci men Quali ty: Adequ ate Resul t: Mixed genit al brayden isola constantine. These super ficia l bacte mylene are not indic ative of a urina ry tract infec tion. No furth er organ ism ident ifica tion is warra nted on this speci men. If clini thang indic ated, recol lect clean -catc h, mid-s tream urine and trans koffi immed iatel y to Urine Cultu re Trans port Tube. Not Available [facility] [address] [place], [address], 01/24/2024 12:22:49 01/22/20 24 01/22/2024 urina lysis , dipst ick Leukocytes Negati ve Not Available [facility] ([facility]) [address] [place], [address], 01/22/2024 14:14:04 01/22/20 24 01/22/2024 urina lysis , dipst ick Nitrite negati ve Not Available [facility] ([facility]) [address] [place], [address], 01/22/2024 14:14:04 01/22/20 24 01/22/2024 urina lysis , dipst ick Urobilinogen .2 Not Available [facility] ([facility]) [address] [place], [address], 01/22/2024 14:14:04 01/22/20 24 01/22/2024 urina lysis , dipst ick Protein Trace Not Available [facility] ([facility]) [address] [place], [address], 01/22/2024 14:14:04 01/22/20 24 01/22/2024 urina lysis , dipst ick pH 6.5 Not Available [facility] ([facility]) [address] [place], [address], 01/22/2024 14:14:04 01/22/20 24 01/22/2024 urina lysis , dipst ick Blood Negati ve Not Available [facility] ([facility]) [address] [place], [address], 01/22/2024 14:14:04 01/22/20 24 01/22/2024 urina lysis , dipst ick Specific [place] 1.030 Not Available [facility] ( [facility]) [address] [place], [address], 01/22/2024 14:14:04 01/22/20 24 01/22/2024 urina lysis , dipst ick Ketone Negati ve Not Available [facility] ([facility]) [address] [place], [address], 01/22/2024 14:14:04 01/22/20 24 01/22/2024 urina lysis , dipst ick Bilirubin Negati ve Not Available [facility] ([facility]) [address] [place], [address], 01/22/2024 14:14:04 01/22/20 24 01/22/2024 urina lysis , dipst ick Glucose Negati ve Not Available [facility] ([facility]) [address] [place], [address], 01/22/2024 14:14:04 01/22/20 24 01/22/2024 urina lysis , dipst ick Appearance Cloudy Not Available [facility] ([facility]) [address] [place], [address], 01/22/2024 14:14:04 01/22/20 24 01/22/2024 urina lysis , dipst ick Color Dark Yellow Not Available [facility] ([facility]) [address] [place], [address], 01/22/2024 14:14:04 06/03/20 24 06/04/2024 CULTU RE, URINE , ROUTI NE culture, urine, routine CULTU RE, URINE , ROUTI NE Micro Numbe r: [id number] Test Statu s: Final Speci men Sourc e: Urine Speci men Quali ty: Inade quate Resul t: Test not perfo rmed. An empty speci men conta iner was recei janice. Not Available [facility] [address] [place], [address], 06/04/2024 15:08:51 06/03/2006/03/2024 urina lysis , compl ete color dark yellow Not Available [facility] ([facility]) [address] [place], [address], 06/03/2024 14:24:23 06/03/20 24 06/03/2024 urina lysis , compl ete clarity clear clear normal Not Available [facility] ([facility]) [address] [place], [address], 06/03/2024 14:24:23 06/03/20 24 06/03/2024 urina lysis , compl ete glucose negati ve negati ve normal Not Available [facility] ([facility]) [address] [place], [address], 06/03/2024 14:24:23 06/03/20 24 06/03/2024 urina lysis , compl ete bilirubin 1+ negati ve abnormal Not Available [facility] ([facility]) [address] [place], [address], 06/03/2024 14:24:23 06/03/20 24 06/03/2024 urina lysis , compl ete ketones 4+ negati ve abnormal Not Available [facility] ([facility]) [address] [place], [address], 06/03/2024 14:24:23 06/03/20 24 06/03/2024 urina lysis , compl ete specific gravity 1.030 1.005- 1.025 abnormal Not Available [facility] ([facility]) [address] [place], [address], 06/03/2024 14:24:23 06/03/20 24 06/03/2024 urina lysis , compl ete pH 6.0 5.0-7. 0 normal Not Available [facility] ([facility]) [address] [place], [address], 06/03/2024 14:24:23 06/03/20 24 06/03/2024 urina lysis , compl ete protein 2+ Not Available [facility] ([facility]) [address] [place], [address], 06/03/2024 14:24:23 06/03/20 24 06/03/2024 urina lysis , compl ete uro 0.2 E.U./d L Not Available [facility] ([facility]) [address] [place], [address], 06/03/2024 14:24:23 06/03/20 24 06/03/2024 urina lysis , compl ete nitrate negati ve negati ve normal Not Available [facility] ([facility]) [address] [place], [address], 06/03/2024 14:24:23 06/03/20 24 06/03/2024 urina lysis , compl ete blood 3+ negati ve abnormal Not Available [facility] ([facility]) [address] [place], [address], 06/03/2024 14:24:23 06/03/20 24 06/03/2024 urina lysis , compl ete leukocytes negati ve negati ve normal Not Available [facility] ([facility]) [address] [place], [address], 06/03/2024 14:24:23 06/03/20 24 06/03/2024 urina lysis , compl ete WBC 8-10 0 high Not Available [facility] ([facility]) [address] [place], [address], 06/03/2024 14:24:23 06/03/20 24 06/03/2024 urina lysis , compl ete RBC 50-60 0 high Not Available [facility] ([facility]) [address] [place], [address], 06/03/2024 14:24:23 06/03/20 24 06/03/2024 urina lysis , compl ete epi cells 2-3 0 low Not Available [facility] ([facility]) [address] [place], [address], 06/03/2024 14:24:23 06/03/20 24 06/03/2024 urina lysis , compl ete bacteria trace of amorph ous Not Available [facility] ([facility]) [address] [place], [address], 06/03/2024 14:24:23 06/03/20 24 06/03/2024 urina lysis , compl ete other - Not Available [facility] ([facility]) [address] [place], [address], 06/03/2024 14:24:23 10/09/19 25 10/09/2024 SARS CoV 2 RNA, QL, nasop haryn x COVID negati ve Not Available [facility] ([facility]) [address] [place], [address], 10/09/2024 10:43:38 10/09/19 25 10/09/2024 rapid flu (A+B) , PCR Influenza A negati ve Not Available [facility] ([facility]) [address] [place], [address], 10/09/2024 10:43:32 10/09/19 25 10/09/2024 rapid flu (A+B) , PCR Influenza B negati ve Not Available [facility] ([facility]) [address] [place], [address], 10/09/2024 10:43:32 06/04/20 24 06/03/2024 XR, abdom en, 2 view No observ ation record ed. [email or web address] [facility] [address] [place], [address], 06/04/2024 10:23:21 Result Notes None recorded. Problems Name Problem SNOMED Code Status Onset Date Resolution Date Notes Provider Name and Address Organization Details Recorded Time Contact dermatitis 96897268 Active 2022 Denver Bnaegas MD [address] [place] [address], [address], [facility] 3 13:04:50 Cerebral palsy 019161617 Active 2022 Cerebral Palsy; Wheelchair Alba Plhong [facility], [facility] 4 13:42:30 Abdominal pain 76590790 Active 2023 Denver Banegas MD [address] [place] [address], [address], [facility] 4 14:23:39 Dysuria 90305349 Active 2023 Denver Banegas MD [address] [place], [address], [facility], [facility] 4 14:24:10 Partial obstructio n of small bowel 186829439 Active 2023 Denver Banegas MD [address] [place], [address], [facility] 4 18:46:28 Problem Notes None recorded. Procedures Surgical History Date Name Laterality Status Provider Name and Address Organization Details Recorded Time Remove tonsils and adenoids [facility]24 13:50:52 Imaging Results None recorded. Procedure Notes None recorded. Medical Equipment None Reported. Allergies Allergen ID Allergen Name Allergen Category Reaction Reaction Severity Criticality Documentation Date Start Date Code Code System Note Provider Name and Address Organization Details Recorded Time 4283 Substance with sulfonami de structure and antibacte rial mechanism of action (substanc e) medicatio n rash moderate low 02/11/2023 52409 8003 SNOMED [facility] 4 13:42:35 [address]654 bacitraci n / neomycin / polymyxin B medicatio n Not available Not available Not available 04/09/2023 99251 9 RxNorm [facility]er [facility] 3 11:46:48 52411 adhesive tape environme nt,medica tion Not available Not available Not available 04/09/2023 32614 UNK [facility]er [facility] 3 11:47:06 45545 bacitraci n / neomycin / polymyxin B medicatio n Not available Not available Not available 10/09/2024 93720 9 RxNorm STEPHANIE [facility]er [facility] 5 10:30:16 Medications Name Sig Start Date Stop Date Status Note LastModified by Organization Details LastModified Time promethaz ine-DM 6.25 mg-15 mg/5 mL oral syrup TAKE 5 TO 10 ML BY MOUTH EVERY 6 HOURS NEEDED FOR COUGH 02/18 completed Not Available Not Available Not Available gabapenti n 600 mg tablet TAKE 1 TABLET BY MOUTH TWICE DAILY active Not Available Not Available No t Available ketoconaz ole 2 % shampoo APPLY TOPICALL Y TO SCALP 2-3 TIMES PER WEEK AND ALLOW TO SIT 5 MINUTES BEFORE RINSING active Not Available Not Available No t Available polyethyl shane glycol 3350 17 gram oral powder packet MIX 1 PACKET IN 8 OUNCES OF PREFERRE D LIQUID AND DRINK ONCE DAILY 06/03 completed Not Available Not Available Not Available fluconazo le 150 mg tablet TAKE 1 TABLET BY MOUTH NOW. TAKE SECOND TABLET IF SYMPTOMS PERSIST AFTER 1 WEEK 05/21 completed Not Available Not Available Not Available hydrocort isone 1 % topical ointment APPLY THIN LAYER TOPICALL Y TO THE AFFECTED AREA TWICE DAILY 05/21 completed Not Available Not Available Not Available ondansetr on HCl 8 mg tablet TAKE 1 TABLET BY MOUTH THREE TIMES DAILY NEEDED FORNAUSE A AND VOMITING 02/18 completed Not Available Not Available Not Available ondansetr on HCl 4 mg tablet TAKE 1 TABLET BY MOUTH THREE TIMES DAILY NEEDED FOR NAUSEA OR VOMITING active Not Available Not Available No t Available prednison e 20 mg tablet TAKE 2 TABLETS BY MOUTH DAILY 10/20 completed Not Available Not Available Not Available clonazepa m 0.5 mg tablet TAKE 1/2 TABLET BY MOUTH EVERY MORNING AND 1 TABLET BY MOUTH EVERY NIGHT AT BEDTIME. active Not Available Not Available No t Available spironola ctone 100 mg tablet TAKE 1 TABLET BY MOUTH DAILY IN THE MORNING active Not Available Not Available No t Available propranol ol ER 60 mg capsule,2 4 hr,extend ed release TAKE 1 CAPSULE BY MOUTH EVERY DAY active Not Available Not Available No t Available ciproflox acin 500 mg tablet TAKE 1 TABLET BY MOUTH EVERY 12 HOURS FOR 7 DAYS 06/03 completed Not Available Not Available Not Available peg-elect rolyte solution 420 gram oral solution active Not Available Not Available Not Available pantopraz ole 20 mg tablet,de layed release TAKE 1 TABLET BY MOUTH DAILY IN THE MORNING ON AN EMPTY STOMACH active Not Available Not Available No t Available Macrobid 100 mg capsule Take 1 capsule every 12 hours by oral route for 5 days. 02/11 completed Not Available Not Available Not Available amoxicill in 875 mg tablet TAKE 1 TABLET BY MOUTH TWICE DAILY FOR 10 DAYS 01/21 completed Not Available Not Available Not Available famotidin e 20 mg tablet at bedtime active Not Available Not Available No t Available baclofen 10 mg tablet TAKE 1 TABLET BY MOUTH ONCE A DAY AT BEDTIME active Not Available Not Available No t Available pantopraz ole 40 mg tablet,de layed release TAKE 1 TABLET BY MOUTH DAILY active Not Available Not Available No t Available hyoscyami ne 0.125 mg sublingua l tablet DISSOLVE 1 TABLET UNDER THE TONGUE EVERY 6 HOURS FOR 2 DAYS NEEDED FOR SPASM active Not Available Not Available No t Available propranol ol ER 80 mg capsule,2 4 hr,extend ed release TAKE 1 CAPSULE BY MOUTH EVERY NIGHT 01/21 completed Not Available Not Available Not Available Aloe [place] 2-n-1 Body Wash every 4 hours as needed 05/21 completed Not Available Not Available Not Available hydroxyzi ne HCl 25 mg tablet TAKE 1 TABLET BY MOUTH TWICE DAILY NEEDED FOR ANXIETY OR PANIC active Not Available Not Available No t Available bisacodyl 5 mg tablet,de layed release TAKE PER COLON PREP INSTRUCT IONS active Not Available Not Available No t Available polyethyl shane glycol 3350 17 gram/dose oral powder MIX 1 SCOOP WITH 8 OUNCES OF FLUID. CAN ADJUST DOSE NEEDED ORALLY DAILY active Not Available Not Available No t Available methylpre dnisolone 4 mg tablets in a dose pack FOLLOW PACKAGE DIRECTIO NS 01/21 completed Not Available Not Available Not Available albuterol sulfate HFA 90 mcg/actua tion aerosol inhaler INHALE 2 PUFFS EVERY 4 HOURS NEEDED FOR COUGH 05/21 completed Not Available Not Available Not Available hydroxyzi ne HCl 10 mg tablet TAKE 1 TABLET BY MOUTH TWICE A DAY NEEDED 01/21 completed Not Available Not Available Not Available ondansetr on 4 mg disintegr ating tablet DISSOLVE 1 TABLET ON THE TONGUE THREE TIMES DAILY FOR 4 DAYS NEEDED 10/20 completed Not Available Not Available Not Available cefdinir 300 mg capsule TAKE 1 CAPSULE BY MOUTH EVERY 12 HOURS FOR 7 DAYS active Not Available Not Available No t Available Sudafed 30 mg tablet TAKE 2 TABLET BY MOUTH THREE TIMES DAILY NEEDED 10/20 completed Not Available Not Available Not Available naproxen 500 mg tablet TAKE 1 TABLET BY MOUTH TWICE DAILY NEEDED active Not Available Not Available No t Available spironola ctone 50 mg tablet TAKE 1 TABLET BY MOUTH DAILY IN THE MORNING WITH A CUP OF WATER. active Not Available Not Available No t Available metoclopr amide 10 mg tablet TAKE 1 TABLET BY MOUTH EVERY 6 HOURS NEEDED FORNAUSE A AND VOMITING active Not Available Not Available No t Available amoxicill in 875 mg-potass ium clavulana te 125 mg tablet TAKE 1 TABLET BY MOUTH EVERY 12 HOURS FOR 7 DAYS 01/21 completed Not Available Not Available Not Available amoxicill in 500 mg-potass ium clavulana te 125 mg tablet TAKE 1 TABLET BY MOUTH EVERY 12 HOURS FOR 7 DAYS 02/18 completed Not Available Not Available Not Available clindamyc in 1 % lotion APPLY TOPICALL Y TO FACE DAILY 05/21 completed Not Available Not Available Not Available bupropion HCl SR 200 mg tablet,12 hr sustained -release TAKE 1 TABLET BY MOUTH EVERY MORNING active Not Available Not Available No t Available escitalop russell 10 mg tablet TAKE 1 TABLET BY MOUTH EVERY DAY active Not Available Not Available No t Available escitalop russell 20 mg tablet TAKE 1 TABLET BY MOUTH DAILY 05/21 completed Not Available Not Available Not Available Adjustabl e Belt every 4 hours as needed 10/09 completed Not Available Not Available Not Available lactulose 10 gram/15 mL oral solution TAKE 30 ML BY MOUTH TWICE DAILY active Not Available Not Available No t Available levonorge strel-eth inyl estrad daily 01/21 completed duplicat e medicati on on chart. Not Available Not Available Not Available Flonase daily 10/09 completed 2 sprays to each nare daily Not Available Not Available Not Available hydroxyzi ne HCl two times daily, as needed 01/21 completed duplicat e medicati on on chart. Not Available Not Available Not Available baclofen at bedtime 01/21 completed duplicat e medicati on on chart. Not Available Not Available Not Available gabapenti n In AM and Noon 01/21 completed duplicat e medicati on on chart. Not Available Not Available Not Available Nitrofura ntoin Monohyd Macro every 12 hours for 7 days with food for urinary tractinf ection 10/20 completed Recorded 01/15/20 22 1:27PM by Mary Campo, Office Visit; Refill Quantity : 0; Not Available Not Available Not Available Latex Exam Gloves as needed 10/09 completed Not Available Not Available Not Available escitalop russell oxalate daily 01/21 completed duplicat e medicati on on chart. Not Available Not Available Not Available Ciprodex to right ear twice a day 10/20 completed Recorded 03/30/20 20 9:50AM by Tamara Brady, Office Visit; Refill Quantity : 1; Bottle; Not Available Not Available Not Available Underpad as needed 10/09 completed Not Available Not Available Not Available L norgest/E estradiol -E estrad 0.15 mg-30 mcg (84)/10 mcg(7) tabs,3mos TAKE 1 TABLET BY MOUTH EVERY DAY active Not Available Not Available No t Available Vienva 0.1 mg-20 mcg tablet TAKE 1 TABLET BY MOUTH DAILY active Not Available Not Available No t Available Vitals Date Recorded Body height Body mass index (BMI) Body weight Respiratory rate Oxygen saturation Oxygen saturation in Arterial blood by Pulse oximetry Heart rate Body temperature Provider Name and Address Organization Details Last Updated DateTime 5 160.02 cm 39 kg/m2 08976.3 2 g 19 /min 100 % 100 % 83 /min 98.3 [degF] STEPHANIE SAUCEDO [facility] 5 10:29:47 Date Recorded Body height Body mass index (BMI) Body weight Body temperature Respiratory rate Oxygen saturation Oxygen saturation in Arterial blood by Pulse oximetry Heart rate Systolic blood pressure Diastolic blood pressure Provider Name and Address Organization Details Last Updated DateTime 4 160.02 cm 38.1 kg/m2 32362.3 6 g 97.1 [degF] 20 /min 99 % 99 % 75 /min 138 mm[Hg] 60 mm[Hg] Tameka Gregory [facility] 4 14:56:15 Date Recorded Body height Body mass index (BMI) Body weight Oxygen saturation Oxygen saturation in Arterial blood by Pulse oximetry Heart rate Body temperature Respiratory rate Systolic blood pressure Diastolic blood pressure Provider Name and Address Organization Details Last Updated DateTime 4 160.02 cm 39 kg/m2 39372.3 2 g 97 % 97 % 62 /min 98 [degF] 14 /min 136 mm[Hg] 84 mm[Hg] Consuelo Bolivaroggins [facility] 4 13:47:08 Date Recorded Body height Body mass index (BMI) Body weight Oxygen saturation Oxygen saturation in Arterial blood by Pulse oximetry Heart rate Respiratory rate Body temperature Systolic blood pressure Diastolic blood pressure Provider Name and Address Organization Details Last Updated DateTime 4 160.02 cm 39 kg/m2 21925.3 2 g 96 % 96 % 117 /min 18 /min 99.9 [degF] 140 mm[Hg] 82 mm[Hg] Carey Cornell [facility] 4 13:45:53 Date Recorded Body height Provider Name an d Address Organization Details Last Updated DateTime 08/11/2024 160.02 cm Dawn Suárez [facility] 08/11/2024 15:37:17 Social History Question Answer Notes LastModified by [employer] Details LastModified Time Tobacco Smoking Status [facility] 06/03/2024 13:51:22 What Was The Date Of Your Most Recent Tobacco Screening? 01/22/2024 [email or web address] Information not available 01/22/2024 Sex: Unknown Functional Status Question Answer Note LastModified by [employer] Details LastModified Time Do you use any illicit or recreational drugs? No [email or web address] Information not available 06/03/2024 What is your level of alcohol consumption? Occasional [email or web address] Information not available 06/03/2024 Mental Status None recorded. Family History Nothing Reported. Medical History Condition Response Coronary Artery Disease N Other Y Gout N Kidney Stones N Blood Diseases N Hyperthyroidism N Breast Cancer N Blood Transfusion N Depression N Hypothyroidism N Lung Disease N COPD N Defects or Inherited Disease N Developmental or Behavioral Disorders N Breast Problem N Difficulty Swallowing N Anesthesia Complications N Meniere's disease N Anxiety Disorder N Muscle, Joint, or Bone Problems N Vision or Eye Problems N Arthritis N Polyps N Infertility N Cancer N Varicosities N Stroke N Endometriosis N Bladder or Kidney Problems N High Cholesterol N Liver Disease N Fibromyalgia N Headaches N Kidney Disease N Allergies/Hayfever N Heart Problems N Ear or Hearing Problems N Hospitalizations N Thyroid Problems N GI Problems N ADD/ADHD N Skin Problems N Eating Disorder N Anemia N Constipation N Mental Illness N Ovarian Cancer N Diabetes N Bedwetting N Seizures/Epilepsy N Tuberculosis N Eczema N Diverticulitis N Abuse/Domestic Violence N Asthma N Reflux/GERD N Hepatitis N Heart Disease N Pulmonary Embolism N Pre-Eclampsia N Hypertension N Chronic Ear Infections N Osteoporosis N Chicken Pox N Autism Spectrum Disorder (ASD) N Thrombophilias N Gynecological HistoryNo gynecological history recorded. Obstetrics History GPAL:G 0 P 0 0 0 0 Immunizations Vaccine Type Date Status Note Provider Nam e and Address Organization Details Recorded Time Hib, unspecified formulation 0 completed Alba baer [facility] 01/22/2024 14:10:54 Hib, unspecified formulation [facility] 01/22/2024 14:10:54 Hib, unspecified formulation 9 completed Alba baer [facility] 01/22/2024 14:10:54 IPV 0 completed Alba Case null [facility] 01/22/2024 14:10:54 IPV 1 completed Alba baer [facility] 01/22/2024 14:10:54 IPV 4 completed Alba baer [facility] 01/22/2024 14:10:54 IPV 9 completed Albaant Case [facility] 01/22/2024 14:10:54 Influenza, MDCK, quadrivalent, PF 0 completed Albaant Case [facility], [facility] 01/22/2024 14:10:54 MMR 4 completed Albaant Case [facility] 01/22/2024 14:10:54 MMR 0 completed Albaant Case [facility] 01/22/2024 14:10:54 COVID-19, mRNA, LNP-S, PF, 100 mcg/0.5mL dose or 50 mcg/0.25mL dose 1 completed Alba Evie [facility] 01/22/2024 14:10:54 COVID-19, mRNA, LNP-S, PF, 100 mcg/0.5mL dose or 50 mcg/0.25mL dose 1 completed Albaant Case [facility] 01/22/2024 14:10:54 pneumococcal polysaccharide PPV23 2 completed Albaant Case [facility] 01/22/2024 14:10:54 influenza, unspecified formulation 9 completed Albaant Case [facility] 01/22/2024 14:10:54 influenza, unspecified formulation 2 completed [place] Evie [facility] 01/22/2024 14:10:54 influenza, unspecified formulation 0 completed [place] Evie [facility] 01/22/2024 14:10:54 influenza, unspecified formulation 0 completed Albaant Case [facility] 01/22/2024 14:10:54 influenza, unspecified formulation 0 completed Alba Evie [facility] 01/22/2024 14:10:54 influenza, unspecified formulation 7 completed Alba Evie [facility] 01/22/2024 14:10:54 Tdap 3 completed Albaant Case [facility] 01/22/2024 14:10:54 varicella 0 completed Albaant Case [facility] 01/22/2024 14:10:54 pneumococcal, unspecified formulation 1 completed Alba Evie [facility] 01/22/2024 14:10:54 pneumococcal, unspecified formulation 0 completed Alba Evie [facility] 01/22/2024 14:10:54 Novel [id number] 9 completed Alba Evie [facility] 01/22/2024 14:10:54 Hep B, adolescent or pediatric 0 completed Albaant Case [facility] 01/22/2024 14:10:54 Hep B, adolescent or pediatric 0 completed Albaant Case [facility] 01/22/2024 14:10:54 Hep B, adolescent or pediatric 9 completed Albaant Case [facility] 01/22/2024 14:10:54 meningococcal MCV4P 7 completed Albaant Case [facility] 01/22/2024 14:10:54 DTaP 0 completed Alba Noblehong [facility] 01/22/2024 14:10:54 DTaP 1 completed Alba Plhong [facility] 01/22/2024 14:10:54 DTaP 4 completed Alba Evie [facility] 01/22/2024 14:10:54 DTaP 0 completed [place] Evie [facility] 01/22/2024 14:10:54 DTaP 9 completed Albaant Case [facility] 01/22/2024 14:10:54 Influenza, split virus, quadrivalent, PF 2 completed Alba Evie [facility] 01/22/2024 14:10:54 Past Encounters Encounter ID Performer Location Encounter Start Date Encounter Closed Date Diagnosis/Indication Diagnosis SNOMED-CT Code Diagnosis ICD10 Code Diagnosis Note [id number] BOZENA BONILLA [facility] ([facility]) [address] [place] [address] [id number] 12/03/2022 09:16:28 12/11/2022 07:11:01 Nausea and vomiting [id number] R11.2 [id number] RICHIE GREENBERG [facility] ([facility]) [address] [place] [address] [id number] 02/04/2023 12:14:20 02/04/2023 16:42:46 Acute urinary tract infection 301026447 N39.0 Start Macrobid BID x5 days, take as prescribed . Encouraged to increase water intake and decrease caffeine and sugary drinks. If still having symptoms after completion of antibiotic s, recommend a urine re-check. Urine was sent for culture. Will call with culture results. If worsening condition or no improvemen t in 3-5 days, recommend returning for re-evaluat ion. Patient verbalized understand ing. [id number] BOZENA BONILLA [facility] ([facility]) [address] [place] [address] [id number] 02/11/2023 12:22:18 02/11/2023 18:05:29 Dysuria 28147983 R30.0 Acute cystitis 00411678 N30.00 Cough 28297194 R05.9 [id number] Denver Banegas MD [facility] ([facility]) [address] [place] [address] [id number] 5 02/18/2023 12:43:25 02/18/2023 19:28:46 Contact dermatitis 54612961 L25.9 Likely reaction to the new deodorant. Utilize hydrocorti sone as needed to help with itch. Start steroid Dosepak. Stop deodorant and wash area vigorously . [id number] BOZENA BONILLA [facility] ([facility]) [address] [place] [address] [id number] 5 04/09/2023 11:26:29 04/09/2023 13:01:54 Fever 847093897 R50.9 Acute cystitis 79155715 N30.00 Upper resp iratory infection 72073697 J06.9 Nausea and vomiting [id number] R11.2 [id number] BOZENA VILLAGOMEZ [facility] ([facility]) [address] [place] [address] [id number] 5 10/20/2023 14:43:23 10/20/2023 15:42:17 Acute pansinusitis 1549723 J01.40 Discussed use of antibiotic . Push oral fluids. May use otc meds if needed. return if symptoms worsen or concerns arise. [id number] BOZENA VILLAGOMEZ [facility] ([facility]) [address] [place] [address] [id number] 5 01/22/2024 14:07:42 01/22/2024 15:18:46 Dysuria 38980417 R30.0 Acute urin arya tract infection 597932346 N39.0 UA results reviewed and discussed with pt. We will start antibiotic s. Pt will increase oral fluids and can use cranberry. Return to office with no improvemen t or any problems. Go to ER with severe worsening or severe problems.W aditi will obtain urine culture [id number] RENEE GUTIERREZ [facility] ([facility]) [address] [place] [address] [id number] 5 05/21/2024 13:35:22 05/21/2024 14:11:37 Acute urinary tract infection 558367510 N39.0 We will start antibiotic s. Pt will increase oral fluids. Return to office with no improvemen t or any problems. Go to ER with severe worsening or severe problems.C ould not obtain sample here because pt needs a rowdy lift. Pt brought a urine sample in from yesterday that was not in a sterile container. Urine hats and cups sent home for future use. [id number] Denver Banegas MD [facility] ([facility]) [address] [place] [address] [id number] 5 06/03/2024 13:32:26 06/03/2024 15:33:52 Abdominal pain 23662614 R10.9 X-rays were obtained and it showed a multiple and significan t dilated bowel loops. Started about partial bowel obstructio n. Dysuria 11345508 R30.0 Straight cath was obtained and significan t was blood noted in urine, however the patient is currently on her menstrual cycle. Urine will be sent for culture. Partial ob struction of small bowel [id number] K56.690 Recommend emergency room evaluation based on our exam and x-ray studies today. [id number] RENEE GUTIERREZ [facility] ([facility]) [address] [place] [address] [id number] 5 08/11/2024 15:34:47 08/13/2024 07:44:28 [id number] [facility] [address] [place] [address] [id number] 5 10/09/2024 10:20:03 10/09/2024 11:39:17 Fever [id number] R50.9 Covid and flu negative. Acute gastroenteritis 69 190356 K52.9 Discussed BRATS diet, small frequent sips of fluid. Rest.VSS. No signs of acute abd on exam today.If you develop fever, no urine output over 24 hours, bloody stools/christi sis, abd pain, or concerns arise return for re-eval. Health Concerns Section Related Observation LastModified by Organization Detai ls LastModified Time None Recorded Concern Status LastModified by Organization Details LastModified Time None Recorded Advance Directives Directive None Recorded Payers Insurance Date Sequence Insurance Name Policy Number Policy Betts Covered Member ID Betts Member ID Guarantor Name 10/09/2024 [place] - [facility] (MEDICARE) Maria Esther Barrera [id number] Maria Esther Rust 10/09/2024 1 [place] Maria Esther Angelo Rust [id number] Maria Esther Rust 11/02/2024 2 [facility] (O) [id number] Maria Esther Barrera [id number] Maria Esther Rust 11/03/2024 3 [place] Maria Esther Rust [id number] Maria Esther Rust Notes Date Note Type Note Provider Name and Address Organization Details Recorded Time 01/22/2024 text/html Lower Urinary Tr act Symptoms (LUTS)Reported bypatient.Location:[facility]; bilateral Quality:dull Severity:mild Onset/Timing:spontan eous Context:excessive fluid intake Associated Symptoms:no nausea; no vomiting;abdominal pain;chills;strainin g;hesitancy;empties poorly;dysuria;vagin al itching or burning Walk In-She thinks that she might have a possible UTI. It has been bothering her for about 3 weeks. has some back pain and chills. PCP-Modesta GUTIERREZ, [employer] [address] [place], [address] 01/23/[facility] 11:32:52 05/21/2024 text/html Lower Urinary Tr act Symptoms (LUTS)Reported bypatient.Location:b ladder; bilateral Quality:tender; continuous; pressure Severity:worsening Onset/Timing:constan t Associated Symptoms:abdominal pain;groin pain;flank pain;constipation;na usea;urgency;frequen cy;urine odor walk in: says that she thinks that she has a uti, says that it engel and she has a lot of pressure down there. Says that when she gets UTI she becomes easily frustrated. Says that she drinks plenty of water and she says that she can feel it in her back.PCP: BOZENA Hutchison [address] [place], [address], [facility], [place]. 05/23/2024 14:01:09 06/03/2024 text/html walk in patientpatient had stool leaking, she took Milk of Mag. to try to clear out her bowels with a large result the next day. she is now leaking stool again and food is passing through unchanged. she is nauseated also. vomited once this morning. The patient's had a significant increase in abdominal pain. Patient has been taken Cipro for presumed UTI, but she still continues to have pain and increased urination. Denver Banegas MD [address] [place], [address], [facility], [facility] 06/03/2024 18:46:58 10/09/2024 text/html Ear Pain Brief HPIReported bypatient.Location:b ilateral Severity:moderate pain Patient complains of diarrhea, chills, and ear pain. She states that both ears hurt but left more. Stomach ache and diarrea that started yesterday. Took immodium last night. denies vomiting. States her mother was positive for covid last week. Pt states she has chills/hood. is drinking well but no appetite. BOZENA VILLAGOMEZ [address] [place], [address], [facility], [facility] 10/09/2024 12:29:42 OBGyn Episode No OBEpisode recorded.
--- OUTSIDE RECORDS SUMMARY | 2025-02-23 22:41 | XMS_ITS | Patient Health Record ---
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 Diagnosis 1 Cerebral palsy with level 4 of gross motor function classification system (GMFCS) (G80.9) [facility] Referring Provider First Name Carolyn Referring Provider Last Name Ref[facility] Referred Provider [facility] Referred Provider Specialty Neurology General Notes Carolyn Rosales 03/01 04:11:58 PM >dao, please send documents from [facility] as well., Carolyn Rosales 03/16/2024 04:12:34 PM >as well as last clinic note, Dao Willard 03/16/2024 04:23:14 PM >Reports attached. Referral faxed.Montse Wendy 03/30/2024 01:45:02 PM >TC to [facility]. On hold for over 10 minutes. Could not continue to hold.Montse Wendy 03/31/2024 02:01:51 PM >TC to [facility]. On hold for over 7 minutes. Could not continue to hold., Dao Willard 04/15/2024 11:12:13 AM >TC to [facility]. On hold for over 5 minutes. Could not continue to hold.Montse Wendy 04/15/2024 11:14:32 AM >TC to pt. Left message on her voice mail w/ number to [facility] to call to schedule if not already scheduled. Requested she return my call once appt is scheduled to confirm appt.Montse Wendy 04/15/2024 11:55:57 AM >TC from pt. Message left she's talked to [facility] and she is waiting for them to accept her as a pt. Pt will notify our clinic once an appt is scheduled.Montse Wendy 05/27/2024 12:03:44 PM >TC to [facility]. Confirmed appt 09/17/24 at 11 am. Pt notified of appt by their clinic. Referral Priority Routine Referral Appointment Date 09/17/2024 Reason WOUND CARE [facility], but not at the clinic Diagnosis 1 Pressure injury of s kin of buttock, unspecified injury stage, unspecified laterality (L89.309) Referral Organization [facility] Referring Provider First Name Carolyn Referring Provider Last Name [facility] Provider [facility] General Notes Dao Willard 2023 02:35:17 PM >Referral faxed.Montse Wendy 04/08/2024 10:54:05 AM >TC to Josie denice/ [facility] Wound Care. Pt had appt 04/01/24 and has a f/u on 04/09/24. Referral Priority Routine Referral Appointment Date 04/01/2024 Reason colonoscopy, egd Diagnosis 1 Gastroesophageal ref lux disease, unspecified whether esophagitis present (K21.9) Diagnosis 2 Encounter for screen ing colonoscopy (Z12.11) Referral Organization [facility] Referring Provider First Name Carolyn Referring Provider Last Name Referring Provider [facility] martina Referred Provider [facility], Gastroenterolog y ASSISTED Referred Provider Specialty Gastroentero logy General Notes Dao Willard 2023 08:48:20 AM >[facility] consult form attached. Labs attached. , Referral faxed., Dao Willard 04/20/2024 03:18:03 PM >Our provider requested a consultation for pt w/ [facility]. , [facility] faxed request for procedure form as they do not do a consultation prior to a colonoscopy., Attached procedure form. , Refaxed referral., Dao Willard 05/17/2024 12:03:50 PM >TC from pt inquiring about referral. Provided pt [facility] number to call and schedule., Carolyn Rosales 05/17/2024 01:12:08 PM >re-faxed referral. pt reported she called [facility] and they had not received the referral., Dao Willard 05/18/2024 01:24:49 PM >TC from [facility]/ [facility]. Confirmed provider would like pt to have a the procedures listed above and a consultation w/ their provider., They will fax our clinic confirmation of appt once scheduled., Dao Willard 05/20/2024 11:29:53 AM >TC to Bharti w/ [facility]. They've called pt 2x and left messages w/ no returned call., Dao Willard 05/20/2024 11:31:35 AM >Attempt TC to pt. Left message on her voicemail w/ number for [facility]., Dao Willard 05/24/2024 03:55:46 PM >Rec'd fax from [facility] confirming appt 09/08/24 at 11 am. Pt notified of appt by their clinic. Referral Priority Routine Referral Appointment Date 09/08/2024 Reason US gb ozh wp Diagnosis 1 Nausea (R11.0) [facility] Referring Provider First Name Carolyn Referring Provider Last Name [facility]erring Provider [facility] Provider [facility] Procedure 1 US Gallbladder (7670 5) General Notes Dao Willard 2024 03:17:35 PM >Insurance cards and ID attached. No prior auth required. Faxed referral., Dao Willard 02/17/2025 10:45:38 AM >TC to P[facility]/ [facility] Scheduling. Confirmed appt is 02/21/25 at 6:30 am. Pt notified of appt by their clinic. Referral Priority Routine Referral Appointment Date 02/21/2025 Medications Medication SIG (Take, Route, Frequency, Duration) Notes Start Date End Date Status MiraLax Mix-In [place] 17 GM 1 packet mixed with 8 ounces of fluid Orally Once a day; Duration: 30 days 09/26/2024 2025 Active Albuterol Sulfate HFA 108 (90 Base) MCG/ACT INHALE 2 PUFFS EVERY 4 HOURS NEEDED FOR COUGH Inhalation; Duration: 16 Days Not-Taking Baclofen 10 MG 1 tablet as needed Oral Once a day; Duration: 90 days 10mg at bedtime Active Ondansetron HCl 4 MG TAKE 1 TABLET BY MO [facility] THREE TIMES DAILY NEEDED Oral; Duration: 4 Days Not-Taking hydrOXYzine HCl 25 MG TAKE 1 TABLET BY M OUT TWICE DAILYifNEEDED FOR ANXIETY OR PANIC Orally; Duration: 30 days Active Propranolol HCl ER 80 MG Oral; Duration: 90 Days Not-Taking clonazePAM 0.5 MG TAKE 1/2 TABLET BY MOUTH EVERY MORNING AND 1 TABLET BY MOUTH EVERY NIGHT AT BEDTIME. Orally; Duration: 30 days 02/15/2025 Active Lactulose 10 GM/15ML 30 mL Orally twice a day Active Ondansetron HCl 4 MG 1 tablet as needed for nausea/vomiting Orally three times daily 09/13/2023 Active Famotidine 20 MG Oral; Duration: 30 Days otc Not-Taking MiraLax 17 GM/SCOOP 1 scoop mixed with 8 ounces of fluid. can adjust dose as needed Orally daily Active Vienva 0.1-20 MG-MCG 1 tablet Orally Onc e a day 12/30/2022 Not-Taking Zofran ODT Not-Takin g Spironolactone 50 MG 1 tablet Oral Once a day; Duration: 30 days Active Gabapentin 600 MG TAKE 1 TABLET BY MANUEL TH TWICE DAILY; Duration: 90 Active Probiotic 11/08/2022 Active Propranolol HCl ER 60 MG TAKE 1 CAPSULE BY MOUTH EVERY DAY; Duration: 90 Active Naproxen 500 MG TAKE 1 TABLET BY MANUEL TH EVERY 12 HOURS NEEDED FOR PAIN Oral; Duration: 10 Days prn Active Stool Softener Activ e Pantoprazole Sodium 40 MG 1 tablet 1/2 to 1 hour before morning meal Orally Once a day; Duration: 30 days 12/09/2024 Active Escitalopram Oxalate 10 MG TAKE 1 TABLET BY MOUTH EVERY DAY; Duration: 90 Active Social History Tobacco Use: Social History Observation Description Date Details (start date - stop date) Current Smoker 09/01/2017 - NA Sex Assigned At : Social History Observation Description Sex Assigned At Female Household Question Answer Notes Marital status: single Number of adults in household: 1 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 Level of education: working on b achelor's degree Tobacco Use/Smoking Question Answer Notes Tobacco use: current smoker When did you start smoking? 09/01/2017 How often do you smoke cigarettes? some days, bu t not every day Are you interested in quitting? 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 Problem Dependence on wheelchair (770466700) Dependence on wheelchair (Z99.3) Active confirmed Problem Anxiety (42028084) Anxiety (F41.9) Active confi rmed Problem Gastroesophageal reflux disease (450202670) Gastroesophageal reflux disease, unspecified whether esophagitis present (K21.9) Active confirmed Problem Mixed anxiety and depressive disorder (142624642) Depression with anxiety (F41.8) Active confirmed Problem Constipation (20027965) Intermittent constipation (K59.09) Active confirmed Problem Obesity (697599396) Obesity, unspecified classification, unspecified obesity type, unspecified whether serious comorbidity present (E66.9) Active confirmed Problem Cerebral palsy (828153748) Cerebral palsy with level 4 of gross motor function classification system (GMFCS) (G80.9) Active confirmed Problem Anxiety state (357876279) Anxiety disorder, unspecified type (F41.9) Active confirmed Problem Dependence on wheelchair (182551572) Wheelchair dependent (Z99.3) Active confirmed Vital Signs Heart Rate 72 /min 12/09/2024 Temperature 98.6 degrees Fahrenheit 02/15/2025 Height-cm 160.02 cm 02/15/2025 Oximetry 96 % 12/09/2024 Blood pressure diastolic 72 mm Hg 12/09/2024 Weight-kg 77.11 kg 02/15/2025 Height 63 in 02/15/2025 Blood pressure systolic 130 mm Hg 12/09/2024 Weight 170 lbs 02/15/2025 BMI 30.11 kg/m2 02/15/2025 Encounters Encounter Location Date Provider Diagnosis [facility] [address] [place] [phone] 12/09/2024 Carolyn Rosales Gastroesophageal ref lux disease, [...] unspecified type F41.9 and Malodorous urine R82.90 [facility] [address] [phone] 03/15/2024 Carolyn Rosales Intermittent constip ation K59.09 ; Pressure injury of skin of buttock, unspecified injury stage, unspecified laterality L89.309 ; Cerebral palsy with level 4 of gross motor function classification system (GMFCS) G80.9 and Dependence on wheelchair Z99.3 [facility] [address] [place] [phone] 04/19/2024 Carolyn Rosales Cerebral palsy with level 4 of gross motor function classification system (GMFCS) G80.9 ; Dependence on wheelchair Z99.3 ; 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 ; Pressure injury of skin of buttock, unspecified injury stage, unspecified laterality L89.309 ; Gastroesophageal reflux disease, unspecified whether esophagitis present K21.9 ; Depression with anxiety F41.8 ; Tachycardia R00.0 and Intermittent constipation K59.09 [facility] [address] [phone] 06/10/2024 Carolyn Rosales Chronic constipation K59.09 ; Cerebral palsy with level 4 of gross motor function classification system (GMFCS) G80.9 ; Dependence on wheelchair Z99.3 and 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 [facility] [address] [place] [phone] 06/21/2024 Carolyn Rosales Wheelchair dependent Z99.3 ; Cerebral palsy with level 4 of gross motor function classification system (GMFCS) G80.9 ; Intermittent constipation K59.09 and Lower abdominal pain R10.30 [facility] [address] [place] [phone] 07/20/2024 Carolyn Rosales Cerebral palsy with level 4 of gross motor function classification system (GMFCS) G80.9 ; Wheelchair dependent Z99.3 ; Chronic constipation K59.09 and At high risk for pressure injury of skin Z91.89 [facility] [address] [place] [phone] 02/15/2025 Carolyn Rosales Gastroesophageal ref lux disease, unspecified whether esophagitis present K21.9 ; Nausea R11.0 ; Cerebral palsy with level 4 of gross motor function classification system (GMFCS) G80.9 ; Dependence on wheelchair Z99.3 ; Intermittent constipation K59.09 ; Depression with anxiety F41.8 ; Chronic constipation K59.09 ; 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 and Anxiety disorder, unspecified type F41.9 [facility] [address] [place] [phone] 03/16/2024 Carolyn Rosales Cerebral palsy with level 4 of gross motor function classification system (GMFCS) G80.9 [facility] [address] [place] [phone] 04/15/2024 Carolyn Rosales [facility] [address] [place] [phone] 06/07/2024 Carolyn Rosales Nausea R11.0 [facility] [address] [place] [phone] 06/17/2024 Carolyn Rosales [facility] [address] [place] [phone] 06/30/2024 Carolyn Rosales Cerebral palsy with level 4 of gross motor function classification system (GMFCS) G80.9 [facility] [address] [place] [phone] 07/16/2024 Carolyn Rosales Cerebral palsy with level 4 of gross motor function classification system (GMFCS) G80.9 and Tachycardia R00.0 [facility] [address] [place] [phone] 09/26/2024 Carolyn Rosales [facility] [address] [place] [phone] 11/10/2024 Carolyn Rosales Cerebral palsy with level 4 of gross motor function classification system (GMFCS) G80.9 [facility] [address] [place] [phone] 12/14/2024 Carolyn Rosales [address] [phone] 12/14/2024 Carolyn Rosales Assessments Encounter Date Diagnosis (ICD Code) Assessment Notes Treatment Notes Treatment Clinical Notes Section Notes 03/15/2024 Intermittent constipation (ICD-10 - K59.09) NEEDS TO STAY ON HER MIRALAX DAILY. ADJUST DOSE NEEDED. I ENCOURAGED HER CAREGIVER TO HELP HER MONITOR FREQUENCY OF BM'S 03/15/2024 Pressure injury of skin of buttock, unspecified injury stage, unspecified laterality (ICD-10 - L89.309) we discussed need for frequent position changes and limit pressure on buttocks. keep skin clean and dry 03/16/2024 Cerebral palsy with level 4 of gross motor function classification system (GMFCS) (ICD-10 - G80.9) 04/19/2024 Dependence on wheelchair (ICD-10 - Z99.3) SHE WILL F/U WITH NEW MOTION, SINCE THE STAND UP FEATURE OF HER CHAIR IS NOT WORKING PROPERLY 04/19/2024 Cerebral palsy with level 4 of gross motor function classification system (GMFCS) (ICD-10 - G80.9) NEUROLOGY CONSULT PENDING 06/10/2024 Chronic constipation (ICD-10 - K59.09) 06/10/2024 Cerebral palsy with level 4 of gross motor function classification system (GMFCS) (ICD-10 - G80.9) 06/07/2024 Nausea (ICD-10 - R11.0) 06/21/2024 Wheelchair dependent (ICD-10 - Z99.3) 06/30/2024 Cerebral palsy with level 4 of gross motor function classification system (GMFCS) (ICD-10 - G80.9) 07/16/2024 Cerebral palsy with level 4 of gross motor function classification system (GMFCS) (ICD-10 - G80.9) 07/20/2024 Cerebral palsy with level 4 of gross motor function classification system (GMFCS) (ICD-10 - G80.9) Keep upcoming neurology/CP appointment 11/10/2024 Cerebral palsy with level 4 of gross motor function classification system (GMFCS) (ICD-10 - G80.9) 12/09/2024 Gastroesophageal reflux disease, unspecified whether esophagitis present (ICD-10 - K21.9) 12/09/2024 Cerebral palsy with level 4 of gross motor function classification system (GMFCS) (ICD-10 - G80.9) Follow-up [facility] 02/15/2025 Nausea (ICD-10 - R11.0) 02/15/2025 Gastroesophageal reflux disease, unspecified whether esophagitis present (ICD-10 - K21.9) 07/20/2024 Wheelchair dependent (ICD-10 - Z99.3) 07/16/2024 Tachycardia (ICD-10 - R00.0) 06/10/2024 Dependence on wheelchair (ICD-10 - Z99.3) 06/21/2024 Cerebral palsy with level 4 of gross motor function classification system (GMFCS) (ICD-10 - G80.9) Will send letter to [facility] Bullock faxed [phone]/mw 06/21/2024 Intermittent constipation (ICD-10 - K59.09) 04/19/2024 Spastic quadriplegic cerebral palsy (ICD-10 - G80.0) 03/15/2024 Cerebral palsy with level 4 of gross motor function classification system (GMFCS) (ICD-10 - G80.9) STILL NEEDS TO GET IN TO NEUROLOGY AT [facility] 12/09/2024 Dependence on wheelchair (ICD-10 - Z99.3) Continue wheelchair 02/15/2025 Cerebral palsy with level 4 of gross motor function classification system (GMFCS) (ICD-10 - G80.9) 03/15/2024 Dependence on wheelchair (ICD-10 - Z99.3) 06/21/2024 Lower abdominal pain (ICD-10 - R10.30) Xray ABD at [facility] WP use meds as prescribed. to ER promptly prn any worsening sx 04/19/2024 Pressure injury of skin of buttock, unspecified injury stage, unspecified laterality (ICD-10 - L89.309) SHE WILL CALL TO SCHEDULE F/U WITH [facility] WOUND CARE 06/10/2024 Spastic quadriplegic cerebral palsy (ICD-10 - G80.0) 07/20/2024 Chronic constipation (ICD-10 - K59.09) will see if the miralax will be covered if prescribed in packet form Discussed with patient that she needs to be diligent in food choices and making sure bowel movements are soft and daily. 07/20/2024 At high risk for pressure injury of skin (ICD-10 - Z91.89) Discussed skin protection and heel protection with patient and staff that that are with her here today. 12/09/2024 Intermittent constipation (ICD-10 - K59.09) 02/15/2025 Dependence on wheelchair (ICD-10 - Z99.3) 12/09/2024 Depression with anxiety (ICD-10 - F41.8) Lexapro 04/19/2024 Gastroesophageal reflux disease, unspecified whether esophagitis present (ICD-10 - K21.9) Gastroesophageal Reflux Disease (GERD): Care Instructions material was printed 02/15/2025 Intermittent constipation (ICD-10 - K59.09) 04/19/2024 Depression with anxiety (ICD-10 - F41.8) 12/09/2024 Chronic constipation (ICD-10 - K59.09) 02/15/2025 Depression with anxiety (ICD-10 - F41.8) 02/15/2025 Chronic constipation (ICD-10 - K59.09) 12/09/2024 Spastic quadriplegic cerebral palsy (ICD-10 - G80.0) Follow-up [facility] 04/19/2024 Tachycardia (ICD-10 - R00.0) 04/19/2024 Intermittent constipation (ICD-10 - K59.09) 12/09/2024 Frequent headaches (ICD-10 - R51.9) 02/15/2025 Spastic quadriplegic cerebral palsy (ICD-10 - G80.0) 12/09/2024 Anxiety disorder, unspecified type (ICD-10 - F41.9) Hydroxyzine 02/15/2025 Anxiety disorder, unspecified type (ICD-10 - F41.9) 12/09/2024 Malodorous urine (ICD-10 - R82.90) Order sent with patient for UA and culture. She will drop off specimen at the hospital was [facility]. 12/09/2024 Other Care Coordinati on Assessment completed, signed and dated by provider during visit. 06/10/2024 Other High-Fiber Diet : Care Instructions material was printed 06/21/2024 Other High-Fiber Diet : Care Instructions material was printed Plan Of Treatment Next Appt Details Provider Name:Carolyn Rsoales , 05/23/2025 10:00:00 AM, [address], [phone], Insurance Providers Payer Name Payer Address Payer Phone Subscriber Number Group Number Insured Name Patient Relationship to Insured Coverage Start Date Coverage End Date [place] Medicare-J 5 [id number] [facility] [address] [place], [place] [phone] [id number] Debra Rust Self - patient is the insured Medicaid [address] [place] [id number] Debra Rust Self - patient is the insured [employer] ([facility]) [address] [place] [address] [phone] [id number] Debra Rust Self - patient is the insured Medical (General) History Medical History History ICD Code spastic quadriplegic cerebral palsy distonia chronic kidney infections Surgical History Surgery Date(Month/Year) 2002 hip surgery - hardware in hip to [facility] it 2004 took some of hardware out of hip 2006 achilies tendon cut short hip surgery in 5th grade hamstring surgery 2009 back fused 2016 surgery on feet and toes 2019 sujit and plate left hand and arm 2021 tonsillectomy 2021 septum surgery
[2025-02-23 22:52] VITALS: BP 122/71; PULSE 106; RESP 16; TEMP 36.8; O2SAT 96
--- NOTE | 2025-02-23 23:16 | W.ED.BURNSMK ---
HPI - Burn/Smoke Inhalation General: Chief complaint: Burn/Smoke Inhalation Stated complaint: sunburn, foot peeling, nauseous, pain Time Seen by Provider: 02/23/25 23:03 Source: patient Mode of arrival: wheelchair Limitations: no limitations History of Present Illness: Patient is a 24-year-old female who presents to ED today along with her care staff for evaluation of some engel to her anterior bilateral lower extremities. Patient states she was outside for an extended amount of time a few days ago. She did apply sunscreen but was not diligent about reapplying it throughout the day. She states she sustained significant sunburns affecting the anterior aspect of her shins, ankles, and feet. She did develop a larger blister to the left foot that she states ruptured after she accidentally struck it while transferring. Patient has significant cerebral palsy and is wheelchair-bound. Complaint: burn Onset (ago): day(s) Smoke Inhalation: none Place: outdoors Location - Extremities: Bilateral: lower leg, ankle and foot Severity: moderate Associated symptoms: Reports no associated symptoms; Deny fever(s) Related Data Home Medications ?Medication ?Instructions ?Recorded ?Confirmed clonazepam 0.5 mg tablet 0.5 mg PO BID 01/16/21 01/06/25 Lactobacillus acidophilus and 1 cap PO DAILY 06/28/22 01/06/25 rhamnosus 15 billion cell capsule (Probiotic) bisacodyl 5 mg tablet 10 mg PO DAILY PRN Constipation 06/28/22 01/06/25 diphenhydramine HCl 50 mg/30 mL 50 mg PO BEDTIME PRN Sleep 06/28/22 01/06/25 oral liquid (ZzzQuil) escitalopram oxalate 20 mg tablet 20 mg PO DAILY 06/28/22 01/06/25 folic acid 20 mg capsule 20 mg PO DAILY 06/28/22 01/06/25 hydroxyzine HCl 10 mg tablet 10 mg PO BID PRN Anxiety 06/28/22 01/06/25 ibuprofen 200 mg tablet (Advil) 200 mg PO Q6H PRN Pain 06/28/22 01/06/25 melatonin 5 mg tablet 5 mg PO BEDTIME PRN Sleep 06/28/22 01/06/25 Previous Rx's ?Medication ?Instructions ?Recorded gabapentin 600 mg tablet 600 mg PO BID #60 tabs 06/28/22 naproxen 500 mg tablet (Naprosyn) 500 mg PO BID PRN pain #20 tabs 12/03/22 ondansetron 4 mg disintegrating 4 mg PO Q6H PRN nausea and 12/03/22 tablet vomiting #14 tabs polyethylene glycol 3350 17 gram 17 g PO BID #14 ea 06/05/24 oral powder packet (Miralax) ciprofloxacin HCl 500 mg tablet 500 mg PO BID 7 days #14 tabs 12/29/24 norethindrone 0.5 mg-ethinyl 1 tab PO DAILY #84 tabs 01/06/25 estradiol 35 mcg tablet cephalexin 500 mg capsule 500 mg PO Q6H 7 days #28 caps 02/23/25 Allergies Allergy/AdvReac Type Severity Reaction Status Date / Time adhesive tape Allergy Intermediate ALGY-Rash Verified 02/23/25 22:57 Sulfa (Sulfonamide Allergy Intermediate ALGY-Hives Verified 02/23/25 22:57 Antibiotics) bacitracin (From Neosporin Allergy ALGY-Rash Verified 02/23/25 22:57 ([id number])) neomycin (From Neosporin Allergy ALGY-Rash Verified 02/23/25 22:57 ([id number])) polymyxin B (From Neosporin Allergy ALGY-Rash Verified 02/23/25 22:57 ([id number])) Review of Systems Const: Denies: fever(s) Musc: Reports: extremity pain (bilateral LEs); Denies: extremity swelling Skin/Breast: Reports: erythema and other (sunburns to bilateral LEs; sloughed blister to L foot) PFSH ED PFSH: Medical History Wheelchair dependence Cerebral palsy Generalized anxiety disorder Major depressive disorder, recurrent, moderate Surgical History History of ankle surgery Family History Denies family history of Colon cancer Ovarian cancer Diabetes Heart disease Hypercholesteremia Breast cancer Hypertension Uterine cancer Thyroid disease Stroke Social History Smoking and tobacco/nicotine status: current some day tobacco/nicotine user Physical Exam Const: COMMON NORMALS: no acute distress, no limitations, alert and well nourished GENERAL APPEARANCE: cooperative Extremity: GENERAL: Yes normal exam except as noted OTHER: 1st to 2nd degree engel affecting anterior aspects of bilateral LEs starting at knee distally. Only area that is open is a large sloughed blister to the medial aspect of the L foot. Neuro: SENSORIUM/ORIENTATION: Yes alert OTHER: chronic deficits with her CP Skin: NARRATIVE SKIN EXAM: see above Course Vital Signs: Vital signs: Vital Signs Temperature 98.3 F 02/23/25 22:52 Pulse Rate 76 02/24/25 00:05 Respiratory Rate 16 02/23/25 22:52 Blood Pressure 144/76 02/24/25 00:05 Pulse Oximetry 100 02/24/25 00:05 Oxygen Delivery Me thod Room Air 02/23/25 23:54 MDM - Burn/Smoke Inhalation Medical Decision Making Open wound was cleaned and dressed here using a nonstick/wet-to-dry dressing. Will place on prophylactic antibiotics as I feel she will have a high risk of infection. Wound care/infection precautions for home discussed. I would like her to follow-up with primary care early next week for wound reevaluation. Medical Records I reviewed the patient's medical records. No radiology studies performed this visit Discharge Plan Discharge Patient Disposition: Home Clinical Impression: Second degree sunburn Condition: Stable Prescriptions: New cephalexin 500 mg capsule 500 mg PO Q6H 7 Days Qty: 28 0RF No Action clonazepam 0.5 mg tablet 0.5 mg PO BID Rx Instructions: Take one half in AM & one at HS. norethindrone-ethin estradiol 0.5-35 mg-mcg tablet 1 tab PO DAILY Qty: 84 3RF Rx Instructions: take once daily ciprofloxacin HCl 500 mg tablet 500 mg PO BID 7 Days Qty: 14 0RF folic acid 20 mg Capsule 20 mg PO DAILY ibuprofen [Advil] 200 mg Tablet 200 mg PO Q6H PRN (Reason: Pain) hydroxyzine HCl 10 mg tablet 10 mg PO BID PRN (Reason: Anxiety) bisacodyl 5 mg Tablet 10 mg PO DAILY PRN (Reason: Constipation) escitalopram oxalate 20 mg tablet 20 mg PO DAILY melatonin 5 mg Tablet 5 mg PO BEDTIME PRN (Reason: Sleep) ZzzQuil 50 mg/30 mL Liquid 50 mg PO BEDTIME PRN (Reason: Sleep) Probiotic 15 billion cell Capsule 1 cap PO DAILY gabapentin 600 mg tablet 600 mg PO BID Qty: 60 0RF polyethylene glycol 3350 [Miralax] 17 gram powder in packet 17 g PO BID Qty: 14 0RF naproxen [Naprosyn] 500 mg tablet 500 mg PO BID PRN (Reason: pain) Qty: 20 0RF ondansetron 4 mg tablet,disintegrating 4 mg PO Q6H PRN (Reason: nausea and vomiting) Qty: 14 0RF Discharge Orders: Discharge ED (Routine); Ordered 02/23/25 Ordered By: Marichuy Peterson Referrals: Carolyn Rosales FNP [Primary Care Provider, Family Practice] Patient Instructions: Second-Degree Burn (ED), Skin Tear (ED), Patient Portal & [place] Instructions Activity Restrictions/Additional Instructions: As we discussed, keep wounds clean with gentle soap and lukewarm water. Make sure you use a nonstick wet-to-dry dressing. Please follow-up with primary care early next week for wound evaluation. Please fill your antibiotics and start them to prevent any infection from developing. 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
[2025-02-23 23:54] VITALS: BP 119/80; PULSE 90; O2SAT 100
[2025-02-24] MEDS: methocarbamol 500 mg Tablet PO (00:01)
[2025-02-24 00:05] VITALS: BP 144/76; PULSE 76; O2SAT 100
== END 2025-02-24 00:08 | disposition home or self-care (01) ==
PROVIDERS: Emergency Provider Physician Assistant; PCP Nurse Practitioner
DX: L55.1 Sunburn of second degree (principal); Z72.0 Tobacco use
CPT/HCPCS: 99283; J9999

== ENCOUNTER 2025-03-15 07:48 | Outpatient (CLI) | payer OTHER, MEDICARE, MEDICAID, SELFPAY ==
--- NOTE | 2025-03-15 07:59 | NM_ITS ---
WS: [id number] NUCLEAR MEDICINE HIDA SCAN WITH GALLBLADDER EJECTION FRACTION HISTORY: GASTROESOPHAGEAL REFLUX DISEASE, NAUSEA COMPARISON: Gallbladder ultrasound 02/21/2025 TECHNIQUE: The patient was intravenously injected with 8.1 mCi of TC99m Mebrofenin. Immediate imaging over the right upper quadrant was followed by 5 minute image and additional images for a total of 60 minutes. Normal uptake of radiotracer throughout the liver. Activity identified in the gallbladder at 10 minutes and well distended by 60 minutes. Activity in the proximal small bowel was seen by 20 minutes. Good washout of the radiotracer from the liver by 60 minutes. The patient then drank 8 ounces of Ensure Plus. Ejection fraction at 60 minutes was 31%. Normal GB ejection fraction is 35-75%. Post fatty meal symptoms: None. NM/NM hepatobiliary w phar* [id number] IMPRESSION: 1. No cystic or common bile duct obstruction. 2. Abnormal gallbladder ejection fraction. Consider gallbladder dyskinesia/chr onic cholecystitis.
== END 2025-03-15 07:49 | disposition home or self-care (01) ==
LOC: RAD 07:50
PROVIDERS: PCP Nurse Practitioner; Visit Provider Nurse Practitioner
DX: K21.9 Gastro-esophageal reflux disease without esophagitis (principal); R11.0 Nausea
CPT/HCPCS: 78227; A9537

== ENCOUNTER 2025-04-05 16:37 | Outpatient (CLI) | payer OTHER, MEDICARE, MEDICAID, SELFPAY ==
--- NOTE | 2025-04-05 16:49 | XRR_ITS ---
PROCEDURE INFORMATION: Exam: XR Right Knee Exam date and time: 04/05/2025 4:58 PM Age: 25 years old Clinical indication: Swelling, leg or foot; Prior surgery; Surgery date: 6+ months; Surgery type: Hamstring lengthening, achilles separation; Additional info: Contusion of leg TECHNIQUE: Imaging protocol: Radiologic exam of the right knee. Views: 3 views. COMPARISON: No relevant prior studies available. FINDINGS: Bones/joints: No definite acute osseous abnormality. Moderate elbow joint effusion. Enthesopathic changes of the insertion of the quadriceps tendon. There is slight patella Chela. No dislocation. Soft tissues: Overlying soft tissues are unremarkable. XR/XR knee RT 3V* [id number] IMPRESSION: As above.
== END 2025-04-05 16:38 | disposition home or self-care (01) ==
PROVIDERS: PCP Nurse Practitioner; Visit Provider Registered Nurse Neonatal Intensive Care
DX: S80.10XA Contusion of unspecified lower leg, initial encounter (principal); Y99.9 Unspecified external cause status; M25.461 Effusion, right knee
CPT/HCPCS: 73562

== ENCOUNTER 2025-04-19 13:40 | Outpatient (CLI) | payer MEDICARE, OTHER, MEDICAID, SELFPAY ==
[2025-04-19 15:07] LABS: Hematocrit 42.5 % (36-47); Hemoglobin 13.50 g/dL (11.27-16.99); Mean Corpuscular HGB Conc 31.8 g/dL (30-55); Mean Corpuscular Hemoglobin 28.2 pg (27-33); Mean Corpuscular Volume 88.7 fl (85-98); Nucleated Red Blood Cells % 0 %; Platelet Count 226 10^3/cmm (157-399); Red Blood Count 4.79 10^6/uL (3.85-5.65); White Blood Count 8.01 10^3/uL (3.29-11.43)
[2025-04-19 15:37] LABS: Alanine Aminotransferase 11 U/L (0-33); Albumin Level 4.0 g/dL (3.5-5.2); Alkaline Phosphatase 95 U/L (35-105); Blood Urea Nitrogen 11 mg/dL (6-20); Calcium 9.3 mg/dL (8.5-10.5); Carbon Dioxide 24 mmol/L (22-29); Chloride 104 mmol/L (98-107); Globulin 3.4 g/dL (1.3-4.6); Glucose 73 mg/dL (65-115); Osmolality Calculated 288 mOsm/kg (285-295); Sodium 140 mmol/L (136-145); Total Protein 7.4 g/dL (6.6-8.7)
[2025-04-19 15:46] LABS: Anion Gap 16.5 (5-19); Aspartate Amino Transferase 15 U/L (0-32); Potassium 4.5 mmol/L (3.5-5.1)
[2025-04-19 16:22] LABS: Estmated Average Glucose 100; Hemoglobin A1C 5.1 % (4.0-6.0)
[2025-04-19 17:20] LABS: Cholesterol 164 mg/dL (0-200); HDL Cholesterol 54 mg/dL (60-100); Thyroid Stimulating Hormone 1.26 uIU/mL (0.27-4.20); Triglycerides 120 mg/dL (0-150)
== END 2025-04-19 13:41 | disposition home or self-care (01) ==
LOC: LAB 13:41
PROVIDERS: PCP Nurse Practitioner; Visit Provider Nurse Practitioner
DX: R79.9 Abnormal finding of blood chemistry, unspecified (principal); R53.83 Other fatigue
CPT/HCPCS: 36415; 80053; 80061; 83036; 84443; 85025

== ENCOUNTER → 2025-05-25 10:12 | Outpatient (BNVA) | payer MEDICARE, OTHER, MEDICAID, SELFPAY | PROVIDERS: PCP Nurse Practitioner; Visit Provider Nurse Practitioner Family | DX: L70.0 Acne vulgaris (principal); D22.5 Melanocytic nevi of trunk; Z80.8 Family history of malignant neoplasm of other organs or systems; D48.5 Neoplasm of uncertain behavior of skin | CPT/HCPCS: 11102; 99213 ==

== ENCOUNTER 2025-07-18 09:47 | Emergency (ER) | payer OTHER, MEDICARE, MEDICAID, SELFPAY ==
[2025-07-18 10:10] VITALS: BP 138/84; PULSE 128; RESP 17; TEMP 37; O2SAT 97
[2025-07-18 10:13] LABS: Hematocrit 43.1 % (36-47); Hemoglobin 13.80 g/dL (11.27-16.99); Mean Corpuscular HGB Conc 32.0 g/dL (30-55); Mean Corpuscular Hemoglobin 28.3 pg (27-33); Mean Corpuscular Volume 88.5 fl (85-98); Nucleated Red Blood Cells % 0 %; Platelet Count 202 10^3/cmm (157-399); Red Blood Count 4.87 10^6/uL (3.85-5.65); White Blood Count 8.79 10^3/uL (3.29-11.43)
[2025-07-18 10:36] LABS: Alanine Aminotransferase 11 U/L (0-33); Albumin Level 4.2 g/dL (3.5-5.2); Alkaline Phosphatase 103 U/L (35-105); Anion Gap 20.3 (5-19); Aspartate Amino Transferase 15 U/L (0-32); Blood Urea Nitrogen 9 mg/dL (6-20); Calcium 9.3 mg/dL (8.5-10.5); Carbon Dioxide 21 mmol/L (22-29); Chloride 102 mmol/L (98-107); Globulin 3.9 g/dL (1.3-4.6); Glucose 80 mg/dL (65-115); Lipase 58 U/L (13-60); Osmolality Calculated 286 mOsm/kg (285-295); Potassium 4.3 mmol/L (3.5-5.1); Sodium 139 mmol/L (136-145); Total Protein 8.1 g/dL (6.6-8.7)
--- NOTE | 2025-07-18 11:27 | W.ED.NAVMDI ---
HPI - Nausea/Vomiting/Diarrhea General: Chief complaint: Nausea/Vomiting/Diarrhea Stated complaint: n/v/f Time Seen by Provider: 07/18/25 11:27 Source: patient Mode of arrival: ambulatory Limitations: no limitations History of Present Illness: Patient is a 25-year-old female with a history of cerebral palsy/wheelchair dependent here for complaints of nausea and vomiting beginning yesterday. She states she has been taking Zofran at home without much relief. She is not complaining of abdominal pain but does feel like her belly is rolling and is passing more gas than normal. She is not having any diarrhea and is reporting normal stool consistency. She does state she recently started a GLP medication for weight loss and took her second round on Friday. No known poor food exposures. No sick contacts. She has not been running fevers. MD elicited complaint: nausea and vomiting Onset (ago): day(s) (yesterday) Associated nausea: Yes Associated abdominal pain: No Location of pain: None Severity: moderate Exacerbating factors: eating Relieving factors: none Context: new medication (GLP) Associated symtoms: Reports nausea; Denies chest pain, dizziness, dysuria, fatigue, headache(s) or malaise Treatment prior to arrival: other (zofran) Related Data Home Medications ?Medication ?Instructions ?Recorded ?Confirmed clonazepam 0.5 mg tablet 0.5 mg PO BID 01/16/21 04/19/25 Lactobacillus acidophilus and 1 cap PO DAILY 06/28/22 04/19/25 rhamnosus 15 billion cell capsule (Probiotic) bisacodyl 5 mg tablet 10 mg PO DAILY PRN Constipation 06/28/22 04/19/25 diphenhydramine HCl 50 mg/30 mL 50 mg PO BEDTIME PRN Sleep 06/28/22 04/19/25 oral liquid (ZzzQuil) escitalopram oxalate 20 mg tablet 20 mg PO DAILY 06/28/22 04/19/25 folic acid 20 mg capsule 20 mg PO DAILY 06/28/22 04/19/25 hydroxyzine HCl 10 mg tablet 10 mg PO BID PRN Anxiety 06/28/22 04/19/25 ibuprofen 200 mg tablet (Advil) 200 mg PO Q6H PRN Pain 06/28/22 04/19/25 melatonin 5 mg tablet 5 mg PO BEDTIME PRN Sleep 06/28/22 04/19/25 Previous Rx's ?Medication ?Instructions ?Recorded gabapentin 600 mg tablet 600 mg PO BID #60 tabs 06/28/22 naproxen 500 mg tablet (Naprosyn) 500 mg PO BID PRN pain #20 tabs 12/03/22 ondansetron 4 mg disintegrating 4 mg PO Q6H PRN nausea and 12/03/22 tablet vomiting #14 tabs polyethylene glycol 3350 17 gram 17 g PO BID #14 ea 06/05/24 oral powder packet (Miralax) norethindrone 0.5 mg-ethinyl 1 tab PO DAILY #84 tabs 01/06/25 estradiol 35 mcg tablet doxycycline hyclate 100 mg tablet 100 mg PO BID 10 days #20 tabs 04/19/25 cefuroxime axetil 500 mg tablet 500 mg PO BID 7 days #14 tabs 07/18/25 metoclopramide HCl 10 mg tablet 10 mg PO Q6H 7 days #15 tabs 07/18/25 (Reglan) Allergies Allergy/AdvReac Type Severity Reaction Status Date / Time adhesive tape Allergy Intermediate ALGY-Rash Verified 04/19/25 13:11 Sulfa (Sulfonamide Allergy Intermediate ALGY-Hives Verified 04/19/25 13:11 Antibiotics) bacitracin (From Neosporin Allergy ALGY-Rash Verified 04/19/25 13:11 ([id number])) neomycin (From Neosporin Allergy ALGY-Rash Verified 04/19/25 13:11 ([id number])) polymyxin B (From Neosporin Allergy ALGY-Rash Verified 04/19/25 13:11 ([id number])) Review of Systems Const: Denies: fever(s), chills, body aches, fatigue or malaise ENMT: Denies: throat pain, odynophagia, nasal discharge, nasal congestion or sinus pain Card: Denies: chest pain Resp: Denies: dyspnea, productive cough, non-productive cough or chest congestion GI: Reports: nausea, vomiting and excessive flatus (feels like her belly is rolling and passing extra gas); Denies: abdominal pain, hematemesis, diarrhea, GI cramping, hematochezia or melena : Denies: flank pain, dysuria or hematuria Musc: Denies: neck pain, back pain, extremity pain or joint swelling Skin/Breast: Denies: rash Neuro: Denies: headache(s) or dizziness PFSH ED PFSH: Medical History Wheelchair dependence Cerebral palsy Generalized anxiety disorder Major depressive disorder, recurrent, moderate Surgical History History of ankle surgery Family History Denies family history of Colon cancer Ovarian cancer Diabetes Heart disease Hypercholesteremia Breast cancer Hypertension Uterine cancer Thyroid disease Stroke Social History Smoking and tobacco/nicotine status: never used tobacco/nicotine Physical Exam Const: COMMON NORMALS: no acute distress, no limitations, alert and well nourished GENERAL APPEARANCE: cooperative Eye: COMMON NORMALS: no scleral icterus Neck/C-Spine: COMMON NORMALS: no lymphadenopathy Resp: COMMON NORMALS: normal respiratory effort and clear to auscultation bilaterally AUSCULTATION: clear to auscultation bilaterally Cardio: COMMON NORMALS: regular rhythm RATE: tachycardic RHYTHM: regular rhythm GI: COMMON NORMALS: Normal to inspection, nondistended, normoactive bowel sounds present, Soft to palpation, non-tender, No hepatosplenomegaly present and no masses PALPATION: Yes Soft to palpation and Yes No hepatosplenomegaly present : COMMON NORMALS: Yes no CVA tenderness BLADDER/KIDNEY EXAM: Yes no CVA tenderness Back/Pelvis: COMMON NORMALS: no CVA tenderness Extremity: GENERAL: Yes normal exam except as noted Neuro: SENSORIUM/ORIENTATION: Yes alert Course Vital Signs: Vital signs: Vital Signs Temperature 98.6 F 07/18/25 10:10 Pulse Rate 124 H 07/18/25 12:44 Respiratory Rate 17 07/18/25 10:10 Blood Pressure 142/108 07/18/25 12:44 Pulse Oximetry 90 07/18/25 12:44 Oxygen Delivery Me thod Room Air 07/18/25 12:44 MDM - Nausea/Vomiting/Diarrhea Medical Decision Making Patient feeling better after IV medications and is tolerating PO well. She has not had any episodes of vomiting while here. Labs showing a normal white count. Chemistry with mildly elevated gap most likely secondary to dehydration. She was given IV fluids today prior to discharge. UA slighly suspicious for UTI. She did have E.Coli UTI back in November. Will chose antibiotics based on last sensitivity report. Will culture today's urine. Patient was not having any abdominal pain. I did not feel emergent CT imaging was warranted today. We did discuss the possibility of her new GLP medication causing her symptoms of they have a high GI side effect profile. Other differentials would include gastroenteritis, SBO, gastroparesis, enterocolitis, among others. Patient will be discharged with anti-emetics and antibiotics for presumed UTI. Recommend follow up with PCP later this week for re-evaluation. Return precautions discussed. Differential Diagnosis Likely food poisoning, gastroenteritis, drug-induced nausea and vomiting and dehydration Medical Records I reviewed the patient's medical records. Lab Data I reviewed the patient's lab results. 07/18/25 10:05 07/18/25 10:05 Laboratory Results WBC 8.79 10^3/uL (3.29-11.43) 07/18/25 10:05 RBC 4.87 10^6/uL (3.85-5.65) 07/18/25 10:05 Hgb 13.80 g/dL (11.27-16.99) 07/18/25 10:05 Hct 43.1 % (36-47) 07/18/25 10:05 MCV 88.5 fl (85-98) 07/18/25 10:05 MCH 28.3 pg (27-33) 07/18/25 10:05 MCHC 32.0 g/dL (30-55) 07/18/25 10:05 RDW 13.2 % (12.1-15.1) 07/18/25 10:05 Plt Count 202 10^3/cmm (157-399) 07/18/25 10:05 MPV 9.8 fL (7.4-10.4) 07/18/25 10:05 Neut % (Auto) 78.7 % 07/18/25 10:05 Lymph % (Auto) 16.2 % 07/18/25 10:05 [place] % (Auto) 4.0 % 07/18/25 10:05 Eos % (Auto) 0.3 % 07/18/25 10:05 Baso % (Auto) 0.3 % 07/18/25 10:05 Neut # (Auto) 6.92 10^3/uL (1.8-7.7) 07/18/25 10:05 Lymph # (Auto) 1.4 10^3/uL (0.8-4.8) 07/18/25 10:05 [place] # (Auto) 0.4 10^3/uL (0.2-0.9) 07/18/25 10:05 Eos # (Auto) 0.0 10^3/uL (0.0-0.8) 07/18/25 10:05 Baso # (Auto) 0.0 10^3/uL (0.0-0.1) 07/18/25 10:05 Nucleated RBC % (auto) 0 % 07/18/25 10:05 Nucleated RBCs # 0.0 /100WBC 07/18/25 10:05 Sodium 139 mmol/L (136-145) 07/18/25 10:05 Potassium 4.3 mmol/L (3.5-5.1) 07/18/25 10:05 Chloride 102 mmol/L (98-107) 07/18/25 10:05 Carbon Dioxide 21 mmol/L (22-29) L 07/18/25 10:05 Anion Gap 20.3 (5-19) H 07/18/25 10:05 BUN 9 mg/dL (6-20) 07/18/25 10:05 Creatinine 0.5 mg/dL (0.5-0.9) 07/18/25 10:05 GFR Calculation 149.1 mL/min (90-130) H 07/18/25 10:05 Glucose 80 mg/dL (65-115) 07/18/25 10:05 Calculated Osmolality 286 mOsm/kg (285-295) 07/18/25 10:05 Calcium 9.3 mg/dL (8.5-10.5) 07/18/25 10:05 Total Bilirubin 0.5 mg/dL (0.15-1.2) 07/18/25 10:05 AST 15 U/L (0-32) 07/18/25 10:05 ALT 11 U/L (0-33) 07/18/25 10:05 Alkaline Phosphatase 103 U/L (35-105) 07/18/25 10:05 Total Protein 8.1 g/dL (6.6-8.7) 07/18/25 10:05 Albumin 4.2 g/dL (3.5-5.2) 07/18/25 10:05 Globulin 3.9 g/dL (1.3-4.6) 07/18/25 10:05 Lipase 58 U/L (13-60) 07/18/25 10:05 Urine Color Yellow (Yellow) 07/18/25 12:21 Urine Appearance Clear (CLEAR) 07/18/25 12:21 Urine pH 5.5 (5-7) 07/18/25 12:21 Ur Specific [place] 1.023 (1.005-1.030) 07/18/25 12:21 Urine Protein Trace (Negative) A 07/18/25 12:21 Urine Glucose (UA) Negative (Normal) 07/18/25 12:21 Urine Ketones 4+ (Negative) 07/18/25 12:21 Urine Blood Negative (Negative) 07/18/25 12:21 Urine Nitrate Negative (Negative) 07/18/25 12:21 Urine Bilirubin Negative (Negative) 07/18/25 12:21 Urine Urobilinogen 1.0 mg/dL (Negative) 07/18/25 12:21 Ur Leukocyte Esterase Trace (Negative) A 07/18/25 12:21 Urine RBC 11-20 /hpf (0-2) H 07/18/25 12:21 Urine WBC 11-20 /hpf (0-5) H 07/18/25 12:21 Ur Squamous Epith Cells 0-5 /hpf (0-5) 07/18/25 12:21 Amorphous Sediment Not Reportable 07/18/25 12:21 Urine Bacteria Trace /hpf (NONE) 07/18/25 12:21 Hyaline Casts 0.40 /lpf 07/18/25 12:21 Influenza A (PCR) Negative (Negative) 07/18/25 12:08 Influenza Type B (PCR) Negative (Negative) 07/18/25 12:08 RSV (PCR) Negative (Negative) 07/18/25 12:08 SARS-CoV-2 (PCR) Negative (Negative) 07/18/25 12:08 No radiology studies performed this visit Discharge Plan Discharge Patient Disposition: Home Clinical Impression: Gastroenteritis Acute cystitis Qualifiers: Hematuria presence: with hematuria Qualified Code(s): N30.01 - Acute cystitis with hematuria Condition: Stable Prescriptions: New cefuroxime axetil 500 mg tablet 500 mg PO BID 7 Days Qty: 14 0RF metoclopramide HCl [Reglan] 10 mg tablet 10 mg PO Q6H 7 Days Qty: 15 0RF No Action clonazepam 0.5 mg tablet 0.5 mg PO BID Rx Instructions: Take one half in AM & one at HS. norethindrone-ethin estradiol 0.5-35 mg-mcg tablet 1 tab PO DAILY Qty: 84 3RF Rx Instructions: take once daily doxycycline hyclate 100 mg tablet 100 mg PO BID 10 Days Qty: 20 0RF folic acid 20 mg Capsule 20 mg PO DAILY ibuprofen [Advil] 200 mg Tablet 200 mg PO Q6H PRN (Reason: Pain) hydroxyzine HCl 10 mg tablet 10 mg PO BID PRN (Reason: Anxiety) bisacodyl 5 mg Tablet 10 mg PO DAILY PRN (Reason: Constipation) escitalopram oxalate 20 mg tablet 20 mg PO DAILY melatonin 5 mg Tablet 5 mg PO BEDTIME PRN (Reason: Sleep) ZzzQuil 50 mg/30 mL Liquid 50 mg PO BEDTIME PRN (Reason: Sleep) Probiotic 15 billion cell Capsule 1 cap PO DAILY gabapentin 600 mg tablet 600 mg PO BID Qty: 60 0RF polyethylene glycol 3350 [Miralax] 17 gram powder in packet 17 g PO BID Qty: 14 0RF naproxen [Naprosyn] 500 mg tablet 500 mg PO BID PRN (Reason: pain) Qty: 20 0RF ondansetron 4 mg tablet,disintegrating 4 mg PO Q6H PRN (Reason: nausea and vomiting) Qty: 14 0RF Discharge Orders: Discharge ED (Routine); Ordered 07/18/25 Ordered By: Marichuy Peterson Referrals: Carolyn Rosales FNP [Primary Care Provider, Family Practice] Patient Instructions: Gastroenteritis (DC), Urinary Tract Infection in (ED), Patient Portal & [facility] Instructions Activity Restrictions/Additional Instructions: As we discussed you may use the Reglan as needed for nausea/vomiting. Continue to push fluids to avoid dehydration. You may eat as tolerated but you may tolerate a soft/clear food diet and slowly advancing as tolerated. We will culture your urine for definitive confirmation of a UTI but placing you on antibiotics at this time. You may return to the emergency department for onset of severe abdominal pain, continued vomiting, diarrhea, fevers, generally feeling worse or any other concerns you may have. Please follow up with primary care later this week for re-evaluation. 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
[2025-07-18] MEDS: metoclopramide 5 mg/mL SDV 2 mL 10 MG IVP (11:57)
[2025-07-18 12:24] VITALS: BP 138/78; O2SAT 100
[2025-07-18 12:33] LABS: Glucose Urine UA Negative (Normal); Nitrate Urine Negative (Negative); Specific Gravity, Urine 1.023 (1.005-1.030)
[2025-07-18 12:38] LABS: Add Urine Microscopic? YES
[2025-07-18 12:44] VITALS: BP 142/108; PULSE 124; O2SAT 90
[2025-07-18 13:09] LABS: Respiratory Syncytial Virus Ce NEGATIVE (Negative); SARS-CoV-2 PCR NEGATIVE (Negative)
== END 2025-07-18 14:03 | disposition home or self-care (01) ==
PROVIDERS: Emergency Provider Physician Assistant; PCP Nurse Practitioner
DX: K52.9 Noninfective gastroenteritis and colitis, unspecified (principal); N30.01 Acute cystitis with hematuria; Z11.52 Encounter for screening for COVID-19
CPT/HCPCS: 36415; 80053; 81001; 83690; 85025; 87086; 87637; 96374; 99284; J2765; J7030